=== PATIENT | male | born 1965 | race Caucasian/White ===

== ENCOUNTER 2018-10-30 09:10 | Inpatient (IN) | payer MEDICARE, MEDICAID ==
[~2018-10-30] VITALS: Ht 170.2 cm; Wt 70.5 kg
[2018-10-30] MEDS ORDERED: NS 1,000 ML IV ONE (10:45)
[2018-10-30 11:06] LABS: BASO # 0.1 10^3/uL (0.0-0.2); BASO % 0.6 % (0.0-1.0); EOS # 0.1 10^3/uL (0.0-0.50); EOS % 1.1 % (0.0-3.0); HEMATOCRIT 43.9 % (42.0-52.0); HEMOGLOBIN 14.1 g/dl (13.5-17.5); LYMPH # 1.3 10^3/uL (1.5-4.5); LYMPH % 12.7 % (24.0-44.0); MEAN CORPUSCULAR HEMOGLOBIN 27.1 pg (27.0-33.0); MEAN CORPUSCULAR HGB CONC 32.1 g/dl (32.0-36.5); MEAN CORPUSCULAR VOLUME 84.3 fl (80.0-96.0); MONO # 1.1 10^3/uL (0.0-0.8); MONO % 10.4 % (0.0-5.0); NEUTROPHILS # 7.8 10^3/uL (1.8-7.7); NEUTROPHILS % 74.2 % (36.0-66.0); PLATELET COUNT, AUTOMATED 374 10^3/uL (150-450); RED BLOOD COUNT 5.21 10^6/uL (4.30-6.10); WHITE BLOOD COUNT 10.5 10^3/uL (4.0-10.0)
[2018-10-30] MEDS ORDERED: VANCOMYCIN HCL 1,000 MG, VIAL MATE ADAPTER 1 EACH in D5W 250 ML IV ONE (11:15)
[2018-10-30] MEDS ORDERED: KCL 10MEQ/100ML SWI (KRUN) 10 MEQ in APPROPRIATE DILUENT 1 EA IV ONE (11:15)
[2018-10-30] MEDS ORDERED: KCL 40MEQ in NS 1000ML 1,000 ML IV SCH (11:15)
[2018-10-30 11:49] LABS: ALBUMIN 3.1 GM/DL (3.2-5.2); BILIRUBIN,DIRECT 0.2 MG/DL (0.0-0.2); BILIRUBIN,TOTAL 0.5 MG/DL (0.2-1.0); C REACTIVE PROTEIN QUANTITATIV 4.38 MG/DL (0.00-0.30); TOTAL PROTEIN 7.4 GM/DL (6.4-8.2)
[2018-10-30 11:52] LABS: ERYTHROCYTE SEDIMENTATION RATE 54 mm/hr (0-20)
--- NOTE | 2018-10-30 12:03 | REP ---
HISTORY: Pain. COMPARISON: None. The bones are markedly demineralized. Degenerative changes seen throughout the foot. There is a lytic lesion seen involving the proximal phalanx of the fifth digit. There is diffuse soft tissue swelling about the foot. IMPRESSION: Soft tissue swelling and lytic lesion as described above suspicious for osteomyelitis. There are other findings and chronic changes as described above. Electronically Signed by Remington Sanders DO 10/30/2018 12:35 P
--- NOTE | 2018-10-30 12:25 | REP ---
HISTORY: Pain and swelling. TECHNIQUE: Multiple ultrasonographic images of the deep venous structures of the right thigh were obtained from the common femoral vein to the popliteal vein along with Doppler interrogation and color flow Doppler images. FINDINGS: There is no abnormal echogenic material seen within any of the visualized deep venous structures that would suggest acute thrombosis. Coaptation is unremarkable throughout. Doppler interrogation shows an expected response to respiratory variability and augmentation. The color flow images show what appears to be a normal vascular pattern throughout. IMPRESSION: There is no ultrasonographic evidence of deep venous thrombosis involving any of the visualized deep venous structures of the right thigh, as described above. There is severe leg edema. Electronically Signed by Remington Sanders DO 10/30/2018 12:35 P
[2018-10-30] MEDS ORDERED: PIPERACILLIN/TAZOBACTAM SOD 3.375 GM in D5W MINI-BAG PLUS 50 ML IV ONE (14:00)
[2018-10-30 14:18] LABS: CHOLESTEROL RISK RATIO 2.911 (<5); HEMOGLOBIN A1c 6.1 %
[2018-10-30] MEDS ORDERED: NS 1,000 ML IV SCH (14:30)
--- NOTE | 2018-10-30 14:39 | HPEPDOC ---
General Date of Admission Oct 30, 2018 at 12:18 Date of Service: Oct 30, 2018 Chief Complaint The patient is a 53-year-old male admitted with a reason for visit of Osteomyelitis Of 5TH Toe Of Right Foot. History of Present Illness 53-year-old male with past medical history of cerebral palsy who is wheelchair bound presented to the ER with a chief complaint of right lower extremity pain. Of note, the patient states that he has not followed with a physician for over 5 years, and does not take any medications regularly. He states that his symptoms began a few months ago when he noticed a wound on the bottom of his right foot. He stated that he started to have some discharge from the foot and put a sock over it about 8 weeks ago. He has not removed the sock since then. He notes that the pain in his right lower extremity had worsened, and he started to notice discharge from the sock. He denies any other acute complaints of fevers, chills, chest pain, palpitations, abdominal pain, or any nausea/vomiting/diarrhea. In the ER, according to the ER provider the patient's sock had to be cut off of his right lower extremity as it was stuck to his skin tissue. His skin was noted to be macerated from below the knee all the way down to the foot where he had several areas of drainage. An XR of the Foot revealed soft tissue swelling and lytic lesion involving the proximal phalanx of the fifth digit suspicious for osteomyelitis. The patient will be admitted to the hospitalist and a consult has been placed to vascular surgery for further evaluation and management. Home Medications No Active Prescriptions or Reported Meds Allergies Coded Allergies: naproxen (Verified Allergy, Unknown, SOB, 10/30/18) Past Medical History Medical History As noted in HPI. Surgical History Hernia repair, Multiple leg surgeries, Eye surgery Social History * Smoker: Denies Alcohol: Denies Drugs: denies Review of Systems Other systems 10 point review of systems negative unless otherwise specified in HPI. Physical Examination General Exam: Positive: Alert, Cooperative, No Acute Distress, Other (patient disheveled appearing with poor hygiene) ENT Exam: Positive: Atraumatic, Mucous membr. moist/pink Neck Exam: Negative: JVD Chest Exam: Positive: Clear to auscultation, Normal air movement Heart Exam: Positive: Rate Normal, Normal S1, Normal S2 Abdomen Exam: Positive: Soft; Negative: Tenderness Extremity Exam: Positive: Other (RLE with severe maceration of skin on the plantar and dorsal aspect of the foot up to the ankle. Weeping with some purulant drainage noted. Streaking and changes consistent cellulitis noted spreading proximal towards the knee (ending 2 inches below)) Psych Exam: Positive: Oriented x 3 Vital Signs Vital Signs Date Time Temp Pulse Resp B/P (MAP) Pulse Ox O2 Delivery O2 Flow Rate FiO2 10/30/18 10:17 10/30/18 09:10 98.8 121 19 98 Room Air Laboratory Data Labs 24H Laboratory Tests 2 10/30/18 09:32: Immature Granulocyte % (Auto) 1.0, White Blood Count 10.5H, Red Blood Count 5.21, Hemoglobin 14.1, Hematocrit 43.9, Mean Corpuscular Volume 84.3, Mean Corpuscular Hemoglobin 27.1, Mean Corpuscular Hemoglobin Concent 32.1, Red Cell Distribution Width 13.6, Platelet Count 374, Neutrophils (%) (Auto) 74.2H, Lymphocytes (%) (Auto) 12.7L, Monocytes (%) (Auto) 10.4H, Eosinophils (%) (Auto) 1.1, Basophils (%) (Auto) 0.6, Neutrophils # (Auto) 7.8H, Lymphocytes # (Auto) 1.3L, Monocytes # (Auto) 1.1H, Eosinophils # (Auto) 0.1, Basophils # (Auto) 0.1, Nucleated Red Blood Cells % (auto) 0.0, Erythrocyte Sedimentation Rate 54H, Estimated Mean Plasma Glucose 128H, Hemoglobin A1c 6.1, Lactic Acid Level 1.6, Aspartate Amino Transf (AST/SGOT) 16, Alanine Aminotransferase (ALT/SGPT) 17, Alkaline Phosphatase 103, Total Bilirubin 0.5, Direct Bilirubin 0.2, C-Reactive Protein, Quantitative 4.38H, Total Protein 7.4, Albumin 3.1L, Albumin/Globulin Ratio 0.72L, Triglycerides Level 60, Total Cholesterol 131, LDL Cholesterol 74, Non-HDL Cholesterol (LDL + VLDL) 86, Total HDL Cholesterol 45, Cholesterol/HDL Ratio 2.911 10/30/18 11:02: POC Glucose (Misc Panel) 109H, POC Sodium (Misc Panel) 138, POC Potassium (Misc Panel) 2.4*L, POC Chloride (Misc Panel) 98, POC Total CO2 (Misc Panel) 26.0, POC Blood Urea Nitrogen (Misc Panel 9, POC Ionized Calcium (Misc Panel) 4.5, POC Creatinine (Misc Panel) 0.8, POC Hematocrit (Misc Panel) 45.0 CBC/BMP Laboratory Tests 10/30/18 09:32 Red Blood Count 5.21, Mean Corpuscular Volume 84.3, Mean Corpuscular Hemoglobin 27.1, Mean Corpuscular Hemoglobin Concent 32.1, Red Cell Distribution Width 13.6, Neutrophils (%) (Auto) 74.2 H, Lymphocytes (%) (Auto) 12.7 L, Monocytes (%) (Auto) 10.4 H, Eosinophils (%) (Auto) 1.1, Basophils (%) (Auto) 0.6, Neutrophils # (Auto) 7.8 H, Lymphocytes # (Auto) 1.3 L, Monocytes # (Auto) 1.1 H, Eosinophils # (Auto) 0.1, Basophils # (Auto) 0.1 Microbiology Microbiology 10/30/18 Blood Culture, Received Pending 10/30/18 Blood Culture, Received Pending 10/30/18 Gram Stain - Final, Resulted 10/30/18 Wound Culture, Resulted Pending Plan / VTE VTE Prophylaxis Ordered?: Yes Plan Plan Severe RLE Cellulitis, Right Foot Proximal Phalanx of the 5th Digit concerning for Osteomyelitis Patient noted to have severe maceration of the RLE from the ankle joint down, with drainage noted from the plantar surface of the foot and around the toes. XR of the Right Foot noted Cultures sent from the ER Patient otherwise afebrile, hemodynamically stable, with a normal lactic acid level Empirically cover with Vanco/Zosyn We will check the patient's HgbA1c, Lipid Panel Vascular surgery consulted for further evaluation Hx of Cerebral Palsy, Wheelchair Bound Status We will eventually have the patient work with physical therapy once he is more clinically stable, and evaluated by vascular surgery Non-adherence to medical therapy Complicating care DVT prophylaxis Lovenox subcutaneous THUAN STORY MD Oct 30, 2018 14:39
[2018-10-30 17:50] VITALS: BP 113/61
[2018-10-30] MEDS: VANCOMYCIN HCL 1,000 MG, VIAL MATE ADAPTER 1 EACH in D5W 250 ML IV SCH (18:43)
[2018-10-30] MEDS: PIPERACILLIN/TAZOBACTAM SOD 3.375 GM in D5W MINI-BAG PLUS 50 ML IV SCH (20:57)
[2018-10-30 22:00] VITALS: BP 117/78
[2018-10-31] MEDS: VANCOMYCIN HCL 1,000 MG, VIAL MATE ADAPTER 1 EACH in D5W 250 ML IV SCH ×3 (00:50→15:32)
[2018-10-31] MEDS: PIPERACILLIN/TAZOBACTAM SOD 3.375 GM in D5W MINI-BAG PLUS 50 ML IV SCH ×4 (02:01→20:01)
[2018-10-31 06:00] VITALS: BP 116/74
[2018-10-31 06:38] LABS: HEMATOCRIT 39.6 % (42.0-52.0); HEMOGLOBIN 12.7 g/dl (13.5-17.5); MEAN CORPUSCULAR HEMOGLOBIN 27.5 pg (27.0-33.0); MEAN CORPUSCULAR HGB CONC 32.1 g/dl (32.0-36.5); MEAN CORPUSCULAR VOLUME 85.9 fl (80.0-96.0); PLATELET COUNT, AUTOMATED 309 10^3/uL (150-450); RED BLOOD COUNT 4.61 10^6/uL (4.30-6.10); WHITE BLOOD COUNT 8.6 10^3/uL (4.0-10.0)
[2018-10-31 07:12] LABS: ALBUMIN 2.4 GM/DL (3.2-5.2); ALT/SGPT 13 U/L (12-78); BILIRUBIN,TOTAL 0.4 MG/DL (0.2-1.0); BLOOD UREA NITROGEN 8 MG/DL (7-18); C REACTIVE PROTEIN QUANTITATIV 4.62 MG/DL (0.00-0.30); CALCIUM LEVEL 8.5 MG/DL (8.5-10.1); CARBON DIOXIDE LEVEL 28 MEQ/L (21-32); CHLORIDE LEVEL 109 MEQ/L (98-107); CREATININE FOR GFR 0.93 MG/DL (0.70-1.30); GLOMERULAR FILTRATION RATE > 60.0 (>56); GLUCOSE, FASTING 89 MG/DL (70-100); POTASSIUM SERUM 3.1 MEQ/L (3.5-5.1); SODIUM LEVEL 142 MEQ/L (136-145); TOTAL PROTEIN 6.6 GM/DL (6.4-8.2)
[2018-10-31] MEDS ORDERED: POTASSIUM CHLORIDE 10 MEQ SR TABLET PO ONE ×2 (07:30→14:00)
[2018-10-31] MEDS: ENOXAPARIN 40 MG/0.4 ML SYRINGE (J1650) SC SCH (09:04)
--- NOTE | 2018-10-31 11:30 | IPNPDOC ---
Subjective Date Seen The patient was seen on 10/31/18. Subjective Chief Complaint/HPI Patient seen and examined at the bedside. No acute overnight events noted. The patient is being evaluated by vascular surgery with further imaging. Objective Physical Examination General Exam: Positive: Alert, Cooperative, No Acute Distress, Other (patient disheveled appearing with poor hygiene) ENT Exam: Positive: Atraumatic, Mucous membr. moist/pink Neck Exam: Negative: JVD Chest Exam: Positive: Clear to auscultation, Normal air movement Heart Exam: Positive: Rate Normal, Normal S1, Normal S2 Abdomen Exam: Positive: Soft; Negative: Tenderness Extremity Exam: Positive: Other (surgical dressing noted on the right lower extremity.) Psych Exam: Positive: Oriented x 3 Assessment /Plan Plan/VTE VTE Prophylaxis Ordered?: Yes Plan Severe RLE Cellulitis, Right Foot Proximal Phalanx of the 5th Digit concerning for Osteomyelitis Patient noted to have severe maceration of the RLE from the ankle joint down, with drainage noted from the plantar surface of the foot and around the toes. XR of the Right Foot noted Cultures sent from the ER Patient otherwise afebrile, hemodynamically stable, with a normal lactic acid level Empirically cover with Vanco/Zosyn We will check the patient's HgbA1c, Lipid Panel Vascular surgery consulted for further evaluation Hx of Cerebral Palsy, Wheelchair Bound Status We will eventually have the patient work with physical therapy once he is more clinically stable, and evaluated by vascular surgery Non-adherence to medical therapy Complicating care DVT prophylaxis Lovenox subcutaneous VS, I&O, 24H, Fishbone Vital Signs/I&O Vital Signs Date Time Temp Pulse Resp B/P (MAP) Pulse Ox O2 Delivery O2 Flow Rate FiO2 10/31/18 06:00 96.0 81 18 116/74 (88) 96 10/30/18 16:58 Room Air I&O- Last 24 Hours up to 6 AM 10/31/18 06:00 Intake Total 3540 ml Output Total 1450 ml Balance 2090 ml Laboratory Data 24H LABS Laboratory Tests 2 10/31/18 05:54: Nucleated Red Blood Cells % (auto) 0.0, Anion Gap 5L, Glomerular Filtration Rate > 60.0, Blood Urea Nitrogen 8, Creatinine 0.93, Sodium Level 142, Potassium Level 3.1L, Chloride Level 109H, Carbon Dioxide Level 28, Calcium Level 8.5, Aspartate Amino Transf (AST/SGOT) 16, Alanine Aminotransferase (ALT/SGPT) 13, Alkaline Phosphatase 75, Total Bilirubin 0.4, Total Protein 6.6, Albumin 2.4#L, Magnesium Level 2.0, C-Reactive Protein, Quantitative 4.62H, Albumin/Globulin Ratio 0.57L CBC/BMP Laboratory Tests 10/30/18 20:17 10/31/18 05:54 Red Blood Count 4.61, Mean Corpuscular Volume 85.9, Mean Corpuscular Hemoglobin 27.5, Mean Corpuscular Hemoglobin Concent 32.1, Red Cell Distribution Width 13.9, Calcium Level 8.5, Aspartate Amino Transf (AST/SGOT) 16, Alanine Aminotransferase (ALT/SGPT) 13, Alkaline Phosphatase 75, Total Bilirubin 0.4, Total Protein 6.6, Albumin 2.4 #L Microbiology Microbiology 10/30/18 Blood Culture - Preliminary, Resulted No growth after 24 hours . All specim... 10/30/18 Blood Culture - Preliminary, Resulted No growth after 24 hours . All specim... 10/30/18 Gram Stain - Final, Resulted 10/30/18 Wound Culture, Resulted Pending THUAN STORY MD Oct 31, 2018 11:30
--- NOTE | 2018-10-31 13:22 | CR.PDOC ---
General Date of Consultation: Oct 31, [address] Massey HPI: 53-year-old male who presented to the ER with a chief complaint of right lower extremity pain. He states that his symptoms began a few months ago when he noticed a wound on the bottom of his right foot. He stated that he started to have some discharge from the foot and put a sock over it about 8 weeks ago. He did not removed the sock since then. He notes that the pain in his right lower extremity had worsened, and he started to notice discharge from the sock. According to records, the patient's sock had to be cut off of his right lower extremity as it was stuck to his skin tissue. His skin has been noted to be macerated from below the knee all to the foot where he had several areas of drainage. An XR of the Foot revealed soft tissue swelling and lytic lesion involving the proximal phalanx of the fifth digit suspicious for osteomyelitis. The patient was admitted to the hospitalist, vascular surgery is consulted re foot wound. Denies any fevers, chills, weakness, fatigue, Headache, Chest Pain, Shortness of breath, cough, palpitations, abdominal pain, N/V/D or changes in bowel or bladder habits. PMHx: Cerebral palsy. Wheelchair bound. PSHX: Hernia repair, Multiple leg surgeries, Eye surgery SOCHX: Tobacco use: denies ETOH: denies ROS: As noted in HPI, otherwise 11pt ROS of systems reviewed and unremarkable. The patient reports that he has not followed with a physician in several years, and does not take any medications regularly. PE: GEN: 53yoM, appears stated age. No acute distress. HEENT: Normocephalic, atraumatic. Moist mucous membranes. CHEST: Regular rate and rhythm, +S1, +S2 LUNGS: Clear to auscultation bilaterally. ABD: Round, soft, non-tender, non-distended. EXT: Bandage is removed from Rt foot. yellow brown drainage noted with foul odor, tissues of the rt foot diffusely macerated on the dorsal and plantar surfaces extending to the ankle and weeping. The RLE is diffusely edematous with erythematous rash extending proximally to just below the knee area. Warm to touch. NEURO: Alert and oriented x 3. No focal deficits appreciated. RLE There is no ultrasonographic evidence of deep venous thrombosis involving any of the visualized deep venous structures of the right thigh, as described above. There is severe leg edema. Electronically Signed by Remington Sanders, 10/30/2018 12:35 P XR foot Soft tissue swelling and lytic lesion as described above suspicious for osteomyelitis. There are other findings and chronic changes as described above. Electronically Signed by Remington Sanders DO 10/30/2018 12:35 P A&P: 1. RLE wound/cellulitis/possible OM. afebrile. WBC 8.6. US neg for DVT. XR foot possible OM. BC x 2 neg. WC pending. IV Vanco/Zosyn as per Medicine Svc. The pt is reviewed with Dr Massey. Plan to obtain LE arterial US, CT RLE. Further recommendations pending these results. 2. DVT prophylaxis. Lovenox. Vital Signs/I&O Vital Signs Date Time Temp Pulse Resp B/P (MAP) Pulse Ox O2 Delivery O2 Flow Rate FiO2 10/31/18 06:00 96.0 81 18 116/74 (88) 96 10/30/18 16:58 Room Air I&O- Last 24 Hours up to 6 AM 10/31/18 06:00 Intake Total 3540 ml Output Total 1450 ml Balance 2090 ml Laboratory Data Labs 24H Laboratory Tests 2 10/31/18 05:54: Nucleated Red Blood Cells % (auto) 0.0, Anion Gap 5L, Glomerular Filtration Rate > 60.0, Blood Urea Nitrogen 8, Creatinine 0.93, Sodium Level 142, Potassium Level 3.1L, Chloride Level 109H, Carbon Dioxide Level 28, Calcium Level 8.5, Aspartate Amino Transf (AST/SGOT) 16, Alanine Aminotransferase (ALT/SGPT) 13, Alkaline Phosphatase 75, Total Bilirubin 0.4, Total Protein 6.6, Albumin 2.4#L, Magnesium Level 2.0, C-Reactive Protein, Quantitative 4.62H, Albumin/Globulin Ratio 0.57L CBC/BMP Laboratory Tests 10/30/18 20:17 10/31/18 05:54 Red Blood Count 4.61, Mean Corpuscular Volume 85.9, Mean Corpuscular Hemoglobin 27.5, Mean Corpuscular Hemoglobin Concent 32.1, Red Cell Distribution Width 13.9, Calcium Level 8.5, Aspartate Amino Transf (AST/SGOT) 16, Alanine Aminotransferase (ALT/SGPT) 13, Alkaline Phosphatase 75, Total Bilirubin 0.4, Total Protein 6.6, Albumin 2.4 #L Microbiology Microbiology 10/30/18 Blood Culture - Preliminary, Resulted No growth after 24 hours . All specim... 10/30/18 Blood Culture - Preliminary, Resulted No growth after 24 hours . All specim... 10/30/18 Gram Stain - Final, Resulted 10/30/18 Wound Culture, Resulted Pending Allergies Coded Allergies: naproxen (Verified Allergy, Unknown, SOB, 10/30/18) Home Medications No Active Prescriptions or Reported Meds Nidia Lee Oct 31, 2018 13:22
[2018-10-31 14:44] VITALS: BP 122/79
--- NOTE | 2018-10-31 15:50 | REP ---
CT study of the right calf without contrast: History: Gangrene of the right foot. Comparison radiographs of the right foot. CT findings: There is diffuse dermal thickening and diffuse subcutaneous edema throughout the right calf. There is no soft tissue gas. There are some dystrophic soft-tissue calcifications in the subcutaneous layer anteromedially. There is diffuse moderate fatty involution of the calf musculature suggesting denervation myopathy. There is a metallic screw in the proximal tibia. There is no bony destructive lesion. Impression: No acute bony destructive lesion. No soft tissue gas seen. Diffuse subcutaneous fat layer edema and dermal thickening. 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 Electronically Signed by Lucas Clarke MD 10/31/2018 03:41 P
--- NOTE | 2018-10-31 16:04 | PHACANCOPD ---
PHARMACY VANCOMYCIN DOSING Pt Demographics Demographics Patient Age:53 , Weight:79.550 , Gender: male Adjusted Body Weight Date: 10/31/18, Adjusted Body Weight: Kg Events Past 24 Hours Events Past 24 Hours: NO: Dialysis, Diuretic Therapy, Change in CrCl, Fever, Elevation in WBC, Pending Diagnostics, Pending Procedures, Other Vancomycin Vancomycin Target Ranges: 15-20 mcg/ml Vancomycin Load Y/N: Yes Load Dose Date Time Vancomycin Load Dose: 2 Date: 10/30/18 Time: 1600 Vancomycin Dose Date: 10/31/18. Current Vancomycin Dose: Intermittent Dosing?: No Labs Labs Vital Signs Label Value Date Time Patient Temperature 96.0 degrees F 10/31/18 0600 Temperature Source Oral 10/31/18 0600 Patient Temperature 98.3 degrees F 10/30/18 2200 Temperature Source Oral 10/30/18 2200 Patient Temperature 97.3 degrees F 10/30/18 1658 Temperature Source Oral 10/30/18 1658 Item Value Date Time White Blood Count 8.6 10^3/uL 10/31/18 0554 White Blood Count 10.5 10^3/uL H 10/30/18 0932 Creatinine 0.93 MG/DL 10/31/18 0554 Micro Microbiology 10/30/18 Blood Culture - Preliminary, Resulted No growth after 24 hours . All specim... 10/30/18 Blood Culture - Preliminary, Resulted No growth after 24 hours . All specim... 10/30/18 Gram Stain - Final, Resulted 10/30/18 Wound Culture, Resulted Pending Creatinine Clearance Date:10/31/18. Creatinine Clearance: . Assessment and Plan Maintaining Current Dose?: No Reason for dose change: Trough too high Pharmacist Note Pharmacist Note Date: 10/31/18. Pharmacist note: Trough drawn@1449 before 1600 dose resulted at 22.7mcg/ml. Last dose was administered late and trough was drawn early. Adjusted trough is likely somewhere around 19.5mcg/ml, however because the patient is wheelchair bound with cerebral palsy I feel his renal function is going to be lower than what his Scr predicts. I don't believe he has reached steady state and will likely continue to accumulate at this dose which would result in supratherapeutic levels. The next dose was administered before nursing could be reached about adjusting the dose. I am going to change this dose to Vanco 750mg IV Q8H@0000 and have rescheduled a trough for tomorrow. We will continue to monitor and adjust dose as needed. GIOVANA MAY PHARMACY Oct 31, 2018 16:04
[2018-10-31 22:00] VITALS: BP 107/66
[2018-10-31] MEDS: VANCOMYCIN HCL 750 MG, VIAL MATE ADAPTER 1 EACH in D5W 250 ML IV SCH (23:07)
[2018-11-01] MEDS: PIPERACILLIN/TAZOBACTAM SOD 3.375 GM in D5W MINI-BAG PLUS 50 ML IV SCH ×4 (01:36→20:11)
[2018-11-01 06:00] VITALS: BP 123/76
[2018-11-01 06:41] LABS: HEMATOCRIT 41.5 % (42.0-52.0); HEMOGLOBIN 13.2 g/dl (13.5-17.5); MEAN CORPUSCULAR HEMOGLOBIN 27.3 pg (27.0-33.0); MEAN CORPUSCULAR HGB CONC 31.8 g/dl (32.0-36.5); MEAN CORPUSCULAR VOLUME 85.9 fl (80.0-96.0); PLATELET COUNT, AUTOMATED 338 10^3/uL (150-450); RED BLOOD COUNT 4.83 10^6/uL (4.30-6.10); WHITE BLOOD COUNT 10.6 10^3/uL (4.0-10.0)
[2018-11-01 07:05] LABS: ALBUMIN 2.6 GM/DL (3.2-5.2); ALT/SGPT 13 U/L (12-78); BILIRUBIN,TOTAL 0.6 MG/DL (0.2-1.0); BLOOD UREA NITROGEN 6 MG/DL (7-18); C REACTIVE PROTEIN QUANTITATIV 2.93 MG/DL (0.00-0.30); CALCIUM LEVEL 8.3 MG/DL (8.5-10.1); CARBON DIOXIDE LEVEL 26 MEQ/L (21-32); CHLORIDE LEVEL 110 MEQ/L (98-107); CREATININE FOR GFR 0.99 MG/DL (0.70-1.30); GLOMERULAR FILTRATION RATE > 60.0 (>56); GLUCOSE, FASTING 87 MG/DL (70-100); MAGNESIUM LEVEL 2.1 MG/DL (1.8-2.4); POTASSIUM SERUM 3.5 MEQ/L (3.5-5.1); SODIUM LEVEL 142 MEQ/L (136-145); TOTAL PROTEIN 6.9 GM/DL (6.4-8.2)
[2018-11-01] MEDS: VANCOMYCIN HCL 750 MG, VIAL MATE ADAPTER 1 EACH in D5W 250 ML IV SCH ×2 (08:31→16:21)
[2018-11-01] MEDS: ENOXAPARIN 40 MG/0.4 ML SYRINGE (J1650) SC SCH (08:31)
--- NOTE | 2018-11-01 09:32 | IPNPDOC ---
Date Seen The patient was seen on 11/01/18. Progress Note Vascular Surgery Dr Massey HPI: 53-year-old male who presented to the ER with a chief complaint of right lower extremity pain. He states that his symptoms began a few months ago when he noticed a wound on the bottom of his right foot. He stated that he started to have some discharge from the foot and put a sock over it about 8 weeks ago. He did not removed the sock since then. He notes that the pain in his right lower extremity had worsened, and he started to notice discharge from the sock. According to records, the patient's sock had to be cut off of his right lower extremity as it was stuck to his skin tissue. His skin has been noted to be macerated from below the knee to the foot where he had several areas of drainage. An XR of the Foot revealed soft tissue swelling and lytic lesion involving the proximal phalanx of the fifth digit suspicious for osteomyelitis. The patient was admitted to the hospitalist, vascular surgery is consulted re foot wound. Denies any fevers, chills, weakness, fatigue, Headache, Chest Pain, Shortness of breath, cough, palpitations, abdominal pain, N/V/D or changes in bowel or bladder habits. PMHx: Cerebral palsy. Wheelchair bound. PSHX: Hernia repair, Multiple leg surgeries, Eye surgery SOCHX: Tobacco use: denies ETOH: denies ROS: As noted in HPI, otherwise 11pt ROS of systems reviewed and unremarkable. The patient reports that he has not followed with a physician in several years, and does not take any medications regularly. PE: GEN: 53yoM, appears stated age. No acute distress. HEENT: Normocephalic, atraumatic. Moist mucous membranes. CHEST: Regular rate and rhythm, +S1, +S2 LUNGS: Clear to auscultation bilaterally. ABD: Round, soft, non-tender, non-distended. EXT: Bandage intact Rt foot. The RLE remains diffusely edematous but is decreased today, also decreased erythema and rash which extends proximally to just below the knee area. NEURO: Alert and oriented x 3. No focal deficits appreciated. RLE There is no ultrasonographic evidence of deep venous thrombosis involving any of the visualized deep venous structures of the right thigh, as described above. There is severe leg edema. Electronically Signed by Remington Sanders DO 10/30/2018 12:35 P XR foot Soft tissue swelling and lytic lesion as described above suspicious for osteomyelitis. There are other findings and chronic changes as described above. Electronically Signed by Remington Sanders DO 10/30/2018 12:[address] No acute bony destructive lesion. No soft tissue gas seen. Diffuse subcutaneous fat layer edema and dermal thickening. 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 Electronically Signed by Lucas Clarke MD 10/31/2018 03:41 P A&P: 1. RLE wound/cellulitis/possible OM. afebrile. WBC 10.6. CRP 2.93, trend downward. US neg for DVT. XR foot possible OM. BC x 2 neg. WC Organism 1 PROTEUS MIRABILIS QUANTITY OF GROWTH MODERATE Organism 2 CORYNEBACTERIUM SPECIES QUANTITY OF GROWTH MODERATE IV Vanco/Zosyn as per Medicine Svc. LE arterial US pending The pt is reviewed and examined by Dr Massey. Would recommend continue with IV antibiotics, continue conservative mgmt for now. Continue to monitor progress. Further recommendations after review of LE arterial US results. 2. DVT prophylaxis. Lovenox. VS, I&O, 24H, Fishbone Vital Signs/I&O Vital Signs Date Time Temp Pulse Resp B/P (MAP) Pulse Ox O2 Delivery O2 Flow Rate FiO2 11/01/18 06:00 97.3 76 22 123/76 (92) 95 10/30/18 16:58 Room Air I&O- Last 24 Hours up to 6 AM 11/01/18 05:59 Intake Total 675 ml Output Total 1325 ml Balance -650 ml Laboratory Data 24H LABS Laboratory Tests 2 10/31/18 14:49: Vancomycin Level Trough 22.7H 11/01/18 06:19: Nucleated Red Blood Cells % (auto) 0.0, Anion Gap 6L, Glomerular Filtration Rate > 60.0, Blood Urea Nitrogen 6L, Creatinine 0.99, Sodium Level 142, Potassium Level 3.5, Chloride Level 110H, Carbon Dioxide Level 26, Calcium Level 8.3L, Aspartate Amino Transf (AST/SGOT) 16, Alanine Aminotransferase (ALT/SGPT) 13, Alkaline Phosphatase 79, Total Bilirubin 0.6, Total Protein 6.9, Albumin 2.6L, Magnesium Level 2.1, C-Reactive Protein, Quantitative 2.93H, Albumin/Globulin Ratio 0.60L CBC/BMP Laboratory Tests 11/01/18 06:19 Red Blood Count 4.83, Mean Corpuscular Volume 85.9, Mean Corpuscular Hemoglobin 27.3, Mean Corpuscular Hemoglobin Concent 31.8 L, Red Cell Distribution Width 13.8, Calcium Level 8.3 L, Aspartate Amino Transf (AST/SGOT) 16, Alanine Aminotransferase (ALT/SGPT) 13, Alkaline Phosphatase 79, Total Bilirubin 0.6, Total Protein 6.9, Albumin 2.6 L Microbiology Microbiology 10/30/18 Blood Culture - Preliminary, Resulted No growth after 24 hours . All specim... 10/30/18 Blood Culture - Preliminary, Resulted No growth after 24 hours . All specim... 10/30/18 Gram Stain - Final, Resulted 10/30/18 Wound Culture - Preliminary, Resulted Proteus Mirabilis Corynebacterium Species Nidia Lee Nov 01, 2018 09:32
--- NOTE | 2018-11-01 12:31 | REP ---
Bilateral lower extremity arterial Doppler ultrasound: History: Right lower extremity wound. Sonographic findings: Ankle brachial index on the right could not be obtained due to the patient's wound. On the left the FREDA is normal at 0.95. Mild plaquing is seen bilaterally. No high-grade stenosis is detected. Monophasic waveforms are observed in the common femoral and profunda femoral artery on the right. Monophasic wave form is also noted in the distal posterior tibial artery on the right. Wave forms are otherwise normal. Arterial Doppler velocity chart right lower extremity: CF A 130 cm/S Profunda 80 Proximal SFA 136 Mid SFA 136 Distal SFA 107 Popliteal 120 Optimal AT A 30 Tibioperoneal trunk 116 Proximal THERMIT WELDING MACHINE OPERATOR 106 Distal THERMIT WELDING MACHINE OPERATOR 47 Distal AT A 68 Arterial Doppler velocity chart left lower extremity: CF A 89 cm/S Profunda 70 Proximal SFA 85 Mid SFA 86 Distal SFA 98 Popliteal 103 Proximal AT A 60 Tibioperoneal trunk 73 Proximal THERMIT WELDING MACHINE OPERATOR 55 Distal THERMIT WELDING MACHINE OPERATOR 58 Distal AT A 61 Electronically Signed by Luacs Clarke MD 11/01/2018 12:22 P
--- NOTE | 2018-11-01 13:47 | PHACANCOPD ---
PHARMACY VANCOMYCIN DOSING Pt Demographics Demographics Patient Age:53 , Weight:79.550 , Gender: male Adjusted Body Weight Date: 10/31/18, Adjusted Body Weight: [71.48] Kg Events Past 24 Hours Events Past 24 Hours: NO: Dialysis, Diuretic Therapy, Change in CrCl, Fever, Elevation in WBC, Pending Diagnostics, Pending Procedures, Other Vancomycin Vancomycin indication: OSTEO Vancomycin Target Ranges: 15-20 mcg/ml Vancomycin Load Y/N: Yes Load Dose Date Time Vancomycin Load Dose: 2 Date: 10/30/18 Time: 1600 Vancomycin Dose Date: 10/31/18. Current Vancomycin Dose: [750MG IV Q8H] Intermittent Dosing?: No Labs Labs Item Value Date Time White Blood Count 10.5 10^3/uL H 10/30/18 0932 White Blood Count 8.6 10^3/uL 10/31/18 0554 White Blood Count 10.6 10^3/uL H 11/01/18 0619 C-Reactive Protein, Quantitative 4.62 MG/DL H 10/31/18 0554 C-Reactive Protein, Quantitative 2.93 MG/DL H 11/01/18 0619 Creatinine 0.93 MG/DL 10/31/18 0554 Creatinine 0.99 MG/DL 11/01/18 0619 Vancomycin Level Trough 22.7 UG/ML H 10/31/18 1449 Vancomycin Level Trough 22.5 UG/ML H 11/01/18 1122 Micro Microbiology 10/30/18 Blood Culture - Preliminary, Resulted No Growth after 48 hours. All Specime... 10/30/18 Blood Culture - Preliminary, Resulted No Growth after 48 hours. All Specime... 10/30/18 Gram Stain - Final, Resulted 10/30/18 Wound Culture - Preliminary, Resulted Proteus Mirabilis Corynebacterium Species Creatinine Clearance Date:10/31/18. Creatinine Clearance: [89ML/MIN]. Pending Labs VANCOMYCIN TROUGH 11/02/18 @15:00 Assessment and Plan Maintaining Current Dose?: Yes Reason for dose change: No Dose Change Pharmacist Note Pharmacist Note Date: 11/01/18. Pharmacist note: A vancomycin level was drawn today @11:22 at 22.5mcg/ml. The pts sam is calculated at 0.078 hr^-1. This would have resulted in the pts true trough at approximately 15.2mcg/ml. We will continue current dosing. A trough is scheduled 11/02/18 @ 1500. We will continue to monitor and adjust the dose as needed. Date: 10/31/18. Pharmacist note: Trough drawn@1449 before 1600 dose resulted at 22.7mcg/ml. Last dose was administered late and trough was drawn early. Adjusted trough is likely somewhere around 19.5mcg/ml, however because the patient is wheelchair bound with cerebral palsy I feel his renal function is going to be lower than what his Scr predicts. I don't believe he has reached steady state and will likely continue to accumulate at this dose which would result in supratherapeutic levels. The next dose was administered before nursing could be reached about adjusting the dose. I am going to change this dose to Vanco 750mg IV Q8H@0000 and have rescheduled a trough for tomorrow. We will continue to monitor and adjust dose as needed. DAMION CALDERON PHARMACY Nov 01, 2018 13:46
--- NOTE | 2018-11-01 18:03 | IPNPDOC ---
Text Note Date of Service The patient was seen on 11/01/18. NOTE S: Patient being seen for right lower extremity cellulitis. Had FREDA done today on left which is normal but could not be performed on right due to wound. Right arterial US pending. Patient states leg is improving. he is still on bed rest. He complains of shoulder pain (declines opioids and states allergy to alleve with SOB but able to use advil at home). Pain is bilateral shoulders left worse than right, he is left handed. He states pain is worse with activy,dull achy. no pain with rest. Pain is positional (worse with lifting arm over head or straight out over body. [facility] commode and that felt shoulder "pop" and since then has not been able to move it as well. O: Vitals as below General: pleasant NAD AAOx3 HRRR LCTA Musculoskeletal: right foot bandaged (dressing change due tomorrow). right leg 1+ edema with wrinkles and venous stasis changes along pretibia; Right shoulder active and passive ROM intact and normal; left shoulder active ROM decreased for abduction and elevation; passive ROM left shoulder normal with no crepitus A/P: Bilateral rotator cuff strain (left more than right) - bengay rub prn, PT/OT consult Severe RLE Cellulitis, Right Foot Proximal Phalanx of the 5th Digit concerning for Osteomyelitis Patient noted to have severe maceration of the RLE from the ankle joint down, with drainage noted from the plantar surface of the foot and around the toes. Cultures sent from the ER Empirically cover with Vanco/Zosyn - high decision making for vanc level and management. Vanc level elevated and monitor for renal toxicity. Pharmacy aware. Vascular surgery consulted for further evaluation Hx of Cerebral Palsy, Wheelchair Bound Status We will eventually have the patient work with physical therapy once he is more clinically stable, and evaluated by vascular surgery Non-adherence to medical therapy Complicating care DVT prophylaxis Lovenox subcutaneous VS,Fishbone, I+O VS, Fishbone, I+O Laboratory Tests 11/01/18 06:19 Red Blood Count 4.83, Mean Corpuscular Volume 85.9, Mean Corpuscular Hemoglobin 27.3, Mean Corpuscular Hemoglobin Concent 31.8 L, Red Cell Distribution Width 13.8, Calcium Level 8.3 L, Aspartate Amino Transf (AST/SGOT) 16, Alanine Aminotransferase (ALT/SGPT) 13, Alkaline Phosphatase 79, Total Bilirubin 0.6, Total Protein 6.9, Albumin 2.6 L Vital Signs Date Time Temp Pulse Resp B/P (MAP) Pulse Ox O2 Delivery O2 Flow Rate FiO2 11/01/18 06:00 97.3 76 22 123/76 (92) 95 10/30/18 16:58 Room Air I&O- Last 24 Hours up to 6 AM 11/01/18 05:59 Intake Total 675 ml Output Total 1325 ml Balance -650 ml PATRICIA MCDONOUGH DO Nov 01, 2018 18:03
[2018-11-01 22:00] VITALS: BP 135/85
--- NOTE | 2018-11-01 23:55 | PHACANCOPD ---
PHARMACY VANCOMYCIN DOSING Pt Demographics Demographics Patient Age:53 , Weight:79.550 , Gender: male Adjusted Body Weight Date: 10/31/18, Adjusted Body Weight: [71.48] Kg Events Past 24 Hours Events Past 24 Hours: NO: Dialysis, Diuretic Therapy, Change in CrCl, Fever, Elevation in WBC, Pending Diagnostics, Pending Procedures, Other Vancomycin Vancomycin indication: OSTEO Vancomycin Target Ranges: 15-20 mcg/ml Vancomycin Load Y/N: Yes Load Dose Date Time Vancomycin Load Dose: 2 Date: 10/30/18 Time: 1600 Vancomycin Dose Date: 11/01/18. Current Vancomycin Dose: [750MG IV Q12H] Intermittent Dosing?: No Labs Labs Item Value Date Time White Blood Count 10.6 10^3/uL H 11/01/18618 Glomerular Filtration Rate > 60.0 11/01/18618 Creatinine 0.99 MG/DL 11/01/18618 Blood Urea Nitrogen 6 MG/DL L 11/01/18618 Vancomycin Level Trough 23.0 UG/ML H 11/01/18 2308 Vital Signs Label Value Date Time Patient Temperature 97.3 degrees F 11/01/18 0600 Temperature Source Oral 11/01/18 0600 Micro Microbiology 10/30/18 Blood Culture - Preliminary, Resulted No Growth after 48 hours. All Specime... 10/30/18 Blood Culture - Preliminary, Resulted No Growth after 48 hours. All Specime... 10/30/18 Gram Stain - Final, Resulted 10/30/18 Wound Culture - Preliminary, Resulted Proteus Mirabilis Corynebacterium Species Creatinine Clearance Date:10/31/18. Creatinine Clearance: [89ML/MIN]. Pending Labs VANCOMYCIN TROUGH 11/02/18 @15:00 Assessment and Plan Maintaining Current Dose?: No Reason for dose change: Trough too high Pharmacist Note Pharmacist Note Date: 11/01/18. Pharmacist note: Trough of 23 is above target range. Dose reduced to 750mg q12h. Will continue to monitor and make adjustments as needed. NICKY CHIU PHARMACY Nov 01, 2018 23:54
[2018-11-02] MEDS: PIPERACILLIN/TAZOBACTAM SOD 3.375 GM in D5W MINI-BAG PLUS 50 ML IV SCH ×3 (02:10→14:36)
[2018-11-02] MEDS: VANCOMYCIN HCL 750 MG, VIAL MATE ADAPTER 1 EACH in D5W 250 ML IV SCH ×2 (04:37→15:57)
[2018-11-02 05:33] LABS: HEMATOCRIT 42.5 % (42.0-52.0); HEMOGLOBIN 13.6 g/dl (13.5-17.5); MEAN CORPUSCULAR HEMOGLOBIN 27.6 pg (27.0-33.0); MEAN CORPUSCULAR VOLUME 86.2 fl (80.0-96.0); PLATELET COUNT, AUTOMATED 326 10^3/uL (150-450); RED BLOOD COUNT 4.93 10^6/uL (4.30-6.10); WHITE BLOOD COUNT 9.7 10^3/uL (4.0-10.0)
[2018-11-02 05:55] LABS: ALBUMIN 2.5 GM/DL (3.2-5.2); ALT/SGPT 13 U/L (12-78); BILIRUBIN,TOTAL 0.6 MG/DL (0.2-1.0); BLOOD UREA NITROGEN 9 MG/DL (7-18); CALCIUM LEVEL 8.5 MG/DL (8.5-10.1); CARBON DIOXIDE LEVEL 27 MEQ/L (21-32); CHLORIDE LEVEL 108 MEQ/L (98-107); GLOMERULAR FILTRATION RATE > 60.0 (>56); GLUCOSE, FASTING 115 MG/DL (70-100); MAGNESIUM LEVEL 2.1 MG/DL (1.8-2.4); POTASSIUM SERUM 3.3 MEQ/L (3.5-5.1); SODIUM LEVEL 141 MEQ/L (136-145)
[2018-11-02 06:00] VITALS: BP 106/72
[2018-11-02] MEDS: ENOXAPARIN 40 MG/0.4 ML SYRINGE (J1650) SC SCH (10:00)
--- NOTE | 2018-11-02 12:27 | IPNPDOC ---
Date Seen The patient was seen on 11/02/18. Progress Note Vascular Surgery Dr Massey HPI: 53-year-old male who presented to the ER with a chief complaint of right lower extremity pain. He states that his symptoms began a few months ago when he noticed a wound on the bottom of his right foot. He stated that he started to have some discharge from the foot and put a sock over it about 8 weeks ago. He did not removed the sock since then. He notes that the pain in his right lower extremity had worsened, and he started to notice discharge from the sock. According to records, the patient's sock had to be cut off of his right lower extremity as it was stuck to his skin tissue. His skin has been noted to be macerated from below the knee to the foot where he had several areas of drainage. An XR of the Foot revealed soft tissue swelling and lytic lesion involving the proximal phalanx of the fifth digit suspicious for osteomyelitis. The patient was admitted to the hospitalist, vascular surgery is consulted re foot wound. Denies any fevers, chills, weakness, fatigue, Headache, Chest Pain, Shortness of breath, cough, palpitations, abdominal pain, N/V/D or changes in bowel or bladder habits. PMHx: Cerebral palsy. Wheelchair bound. PSHX: Hernia repair, Multiple leg surgeries, Eye surgery PE: GEN: 53yoM, appears stated age. No acute distress. HEENT: Normocephalic, atraumatic. Moist mucous membranes. CHEST: Regular rate and rhythm, +S1, +S2 LUNGS: Clear to auscultation bilaterally. ABD: Round, soft, non-tender, non-distended. EXT: Bandage intact Rt foot. The RLE remains diffusely edematous but is decreased today, also decreased erythema and rash which extends proximally to just below the knee area. NEURO: Alert and oriented x 3. No focal deficits appreciated. RLE There is no ultrasonographic evidence of deep venous thrombosis involving any of the visualized deep venous structures of the right thigh, as described above. There is severe leg edema. Electronically Signed by Remington Sanders DO 10/30/2018 12:35 P XR foot Soft tissue swelling and lytic lesion as described above suspicious for osteomyelitis. There are other findings and chronic changes as described above. Electronically Signed by Remington Sanders DO 10/30/2018 12:[address] No acute bony destructive lesion. No soft tissue gas seen. Diffuse subcutaneous fat layer edema and dermal thickening. 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 Electronically Signed by Lucas Clarke MD 10/31/2018 03:41 P BLE Art US History: Right lower extremity wound. Sonographic findings: Ankle brachial index on the right could not be obtained due to the patient's wound. On the left the FREDA is normal at 0.95. Mild plaquing is seen bilaterally. No high-grade stenosis is detected. Monophasic waveforms are observed in the common femoral and profunda femoral artery on the right. Monophasic wave form is also noted in the distal posterior tibial artery on the right. Wave forms are otherwise normal. Arterial Doppler velocity chart right lower extremity: CF A 130 cm/S Profunda 80 Proximal SFA 136 Mid SFA 136 Distal SFA 107 Popliteal 120 Optimal AT A 30 Tibioperoneal trunk 116 Proximal OPINION POLLS SURVEY WORKER 106 Distal OPINION POLLS SURVEY WORKER 47 Distal AT A 68 Arterial Doppler velocity chart left lower extremity: CF A 89 cm/S Profunda 70 Proximal SFA 85 Mid SFA 86 Distal SFA 98 Popliteal 103 Proximal AT A 60 Tibioperoneal trunk 73 Proximal OPINION POLLS SURVEY WORKER 55 Distal OPINION POLLS SURVEY WORKER 58 Distal AT A 61 Electronically Signed by Lucas Clarke MD 11/01/2018 12:22 P A&P: 1. RLE wound/cellulitis/possible OM. afebrile. WBC 9.7 CRP 2.2, trend downward. US neg for DVT. XR foot possible OM. BC x 2 neg. WC Organism 1 PROTEUS MIRABILIS QUANTITY OF GROWTH MODERATE Organism 2 CORYNEBACTERIUM SPECIES QUANTITY OF GROWTH MODERATE IV Vanco/Zosyn as per Medicine Svc. The pt is reviewed and examined by Dr Massey 11/02/18. Would recommend continue with IV antibiotics. LE arterial US results are reviewed as per Dr Massey, plan for RLE angiogram 11/03/18 to further asses. 2. DVT prophylaxis. Lovenox. VS, I&O, 24H, Fishbone Vital Signs/I&O Vital Signs Date Time Temp Pulse Resp B/P (MAP) Pulse Ox O2 Delivery O2 Flow Rate FiO2 11/02/18 06:00 97.9 74 18 106/72 (83) 97 10/30/18 16:58 Room Air I&O- Last 24 Hours up to 6 AM 11/02/18 06:00 Intake Total 0 ml Output Total 400 ml Balance -400 ml Laboratory Data 24H LABS Laboratory Tests 2 11/01/18 12:50: Bedside Glucose (Misc Panel) 117H 11/01/18 23:08: Vancomycin Level Trough 23.0H 11/02/18 05:13: Nucleated Red Blood Cells % (auto) 0.0, Anion Gap 6L, Glomerular Filtration Rate > 60.0, Blood Urea Nitrogen 9, Creatinine 1.00, Sodium Level 141, Potassium Level 3.3L, Chloride Level 108H, Carbon Dioxide Level 27, Calcium Level 8.5, Aspartate Amino Transf (AST/SGOT) 15, Alanine Aminotransferase (ALT/SGPT) 13, Al kaline Phosphatase 73, Total Bilirubin 0.6, Total Protein 7.0, Albumin 2.5L, Magnesium Level 2.1, C-Reactive Protein, Quantitative 2.20H, Albumin/Globulin Ratio 0.56L CBC/BMP Laboratory Tests 11/02/18 05:13 Red Blood Count 4.93, Mean Corpuscular Volume 86.2, Mean Corpuscular Hemoglobin 27.6, Mean Corpuscular Hemoglobin Concent 32.0, Red Cell Distribution Width 13.9, Calcium Level 8.5, Aspartate Amino Transf (AST/SGOT) 15, Alanine Aminotransferase (ALT/SGPT) 13, Alkaline Phosphatase 73, Total Bilirubin 0.6, Total Protein 7.0, Albumin 2.5 L Microbiology Microbiology 10/30/18 Blood Culture - Preliminary, Resulted No Growth after 72 hours. All specime... 10/30/18 Blood Culture - Preliminary, Resulted No Growth after 72 hours. All specime... 10/30/18 Gram Stain - Final, Resulted 10/30/18 Wound Culture - Preliminary, Resulted Proteus Mirabilis Staphylococcus Sp Coag Neg Corynebacterium Species Attending Note Attending Note VASCULAR SURGICAL ATTENDING NOTE: Dr. Alicja Massey M.D. ASSESSMENT: 53-year-old male with right foot gangrene and ulceration with arterial duplex of the right lower extremity showing femoral-popliteal arterial atherosclerotic occlusive disease. PLAN: Patient will undergo a right leg angiogram with possible angioplasty, stent and/or arthrectomy. Patient will also undergo debridement of the right foot wounds and ulcers. Marcell Garland was the attending vascular surgeon for this patient encounter. The patient was seen, examined, interviewed and evaluated independently by Dr. Mi Massey M.D. Dr. Mi Massey M.D. was fully available during the consultation evaluation. All aspects of the patient interview, examination, medical decision making process, and medical care plan development were reviewed and approved by Dr. Mi Massey M.D. Dr. Mi Massey M.D. is aware and concurs with the plan as stated in the body of this note and will attest to such by his/her cosignature. Nidia Lee Nov 02, 2018 12:27 Alejandro Massey MD Nov 03, 2018 10:15
[2018-11-02] MEDS ORDERED: POTASSIUM CHLORIDE 10 MEQ SR TABLET PO ONE (17:30)
--- NOTE | 2018-11-02 17:31 | IPNPDOC ---
Text Note Date of Service The patient was seen on 11/02/18. NOTE S: patient states no leg pain. swelling to right leg resolved. He is being seen for right leg ulcer and cellulitis. O: Vitals as below General: pleasant NAD AAOx3 HRRR LCTA Ext: right leg dressing remove and evaluated - plantar surface of right foot with dime size closed macerated soft ulcer; drainage (serosang) present on dressing/guaze. Dorsum of toes (2-5) with maceration along MTP distal skin folding and deformity. Currently on zosyn and vanc - wound cultures reviewed: WOUND CULTURE Preliminary (continued) PROTEU FAITH STAPH NEG RX M.I.C. RX M.I.C. ----- --------- ----- --------- ICR (INDUCIBLE CC RESISTANCE) + TETRACYCLINE S <=1 PENICILLIN G R 0.25 TRIMETHOPRIM/SULFAMETHOXAZOLE S <=20 S <=10 AMPICILLIN S <=2 ERYTHROMYCIN R 1 GENTAMICIN S <=1 S <=0.5 CLINDAMYCIN R <=0.12 CEFAZOLIN S <=4 OXACILLIN S <=0.25 LEVOFLOXACIN S <=0.12 TOBRAMYCIN S <=1 VANCOMYCIN S <=0.5 CEFTRIAXONE S <=1 CEFTAZIDIME S <=1 AMPICILLIN/SULBACTAM S <=2 PIPERACILLIN/TAZOBACTAM S <=4 AZTREONAM S <=1 ERTAPENEM S <=0.5 MEROPENEM S <=0.25 TIGECYCLINE R 4 LINEZOLID (ZYVOX) S 1 DAPTOMYCIN S <=0.12 * CEFEPIME S <=1 MINOCYCLINE S <=0.5 A/P: 1) Severe RLE Cellulitis, Right Foot Proximal Phalanx of the 5th Digit concerning for Osteomyelitis Vascular surgery consulted for further evaluation and case discussed with daniel morgan. continue with [employer] with dry guaze daily; Arteriogram per Dr Massey continue with vancomycin and monitor for toxicity (high decision making), change zosyn to rocephin. Continue with IV antibiotics until ready for discharge as recommended by surgery, then change to bactrim po. Will need o utpatient podiatry for continued foot care, off loading shoes given foot deformity associated with CP. 2) Bilateral rotator cuff strain (left more than right) - sanjeev hall prn, PT/OT consult 3) Hx of Cerebral Palsy, Wheelchair Bound Status - stable 4) Non-adherence to medical therapy prior to admission - Complicating care DVT prophylaxis Lovenox subcutaneous VS,Fishbone, I+O VS, Fishbone, I+O Laboratory Tests 11/02/18 05:13 Red Blood Count 4.93, Mean Corpuscular Volume 86.2, Mean Corpuscular Hemoglobin 27.6, Mean Corpuscular Hemoglobin Concent 32.0, Red Cell Distribution Width 13.9, Calcium Level 8.5, Aspartate Amino Transf (AST/SGOT) 15, Alanine Aminotransferase (ALT/SGPT) 13, Alkaline Phosphatase 73, Total Bilirubin 0.6, Total Protein 7.0, Albumin 2.5 L Vital Signs Date Time Temp Pulse Resp B/P (MAP) Pulse Ox O2 Delivery O2 Flow Rate FiO2 11/02/18 06:00 97.9 74 18 106/72 (83) 97 10/30/18 16:58 Room Air I&O- Last 24 Hours up to 6 AM 11/02/18 06:00 Intake Total 0 ml Output Total 400 ml Balance -400 ml PATRICIA MCDONOUGH DO Nov 02, 2018 11:04
[2018-11-02] MEDS: cefTRIAXone SOD 2 GM in D5W MINI-BAG PLUS 50 ML IV SCH (18:29)
[2018-11-02 20:46] VITALS: BP 126/88
[2018-11-03] MEDS: VANCOMYCIN HCL 750 MG, VIAL MATE ADAPTER 1 EACH in D5W 250 ML IV SCH ×2 (03:13→17:27)
[2018-11-03 06:30] VITALS: BP 113/68
[2018-11-03] MEDS ORDERED: fentaNYL 100 MCG/2 ML INJECTION (J3010) As Ordered ONE (07:42)
[2018-11-03] MEDS ORDERED: PROPOFOL 200 MG/20 ML VIAL As Ordered ONE ×2 (07:42→08:56)
[2018-11-03] MEDS ORDERED: MIDAZOLAM INJ 2 MG/2 ML VIAL (J2250) As Ordered ONE (07:42)
[2018-11-03] MEDS ORDERED: LIDOCAINE 2% INJ 100 MG/5 ML SDV (FOR ANES.) As Ordered ONE (07:42)
[2018-11-03] MEDS ORDERED: ONDANSETRON 4MG/2ML VIAL (J2405) As Ordered ONE (07:42)
[2018-11-03] MEDS ORDERED: ISOVUE-300 61% 50ML VIAL (Q9967) As Ordered ONE ×2 (07:57→08:19)
[2018-11-03] MEDS ORDERED: HEPARIN SOD (PORCINE) 5000 UNITS/ML VIAL As Ordered ONE (07:57)
[2018-11-03 07:58] LABS: ALBUMIN 2.5 GM/DL (3.2-5.2); ALT/SGPT 12 U/L (12-78); BILIRUBIN,TOTAL 0.3 MG/DL (0.2-1.0); BLOOD UREA NITROGEN 12 MG/DL (7-18); C REACTIVE PROTEIN QUANTITATIV 1.78 MG/DL (0.00-0.30); CALCIUM LEVEL 8.4 MG/DL (8.5-10.1); CARBON DIOXIDE LEVEL 28 MEQ/L (21-32); CHLORIDE LEVEL 107 MEQ/L (98-107); CREATININE FOR GFR 0.98 MG/DL (0.70-1.30); GLOMERULAR FILTRATION RATE > 60.0 (>56); GLUCOSE, FASTING 97 MG/DL (70-100); MAGNESIUM LEVEL 2.3 MG/DL (1.8-2.4); POTASSIUM SERUM 3.6 MEQ/L (3.5-5.1); SODIUM LEVEL 141 MEQ/L (136-145); TOTAL PROTEIN 6.9 GM/DL (6.4-8.2)
[2018-11-03] MEDS ORDERED: LIDOCAINE 2% MDV 20 ML VIAL As Ordered ONE (07:58)
[2018-11-03] MEDS ORDERED: BUPIVACAINE HCL 0.5% 30 ML VIAL As Ordered ONE (07:58)
[2018-11-03 08:16] LABS: HEMATOCRIT 42.2 % (42.0-52.0); HEMOGLOBIN 13.2 g/dl (13.5-17.5); MEAN CORPUSCULAR HEMOGLOBIN 27.4 pg (27.0-33.0); MEAN CORPUSCULAR HGB CONC 31.3 g/dl (32.0-36.5); MEAN CORPUSCULAR VOLUME 87.7 fl (80.0-96.0); PLATELET COUNT, AUTOMATED 294 10^3/uL (150-450); RED BLOOD COUNT 4.81 10^6/uL (4.30-6.10); WHITE BLOOD COUNT 8.9 10^3/uL (4.0-10.0)
[2018-11-03] MEDS ORDERED: LR 1,000 ML IV SCH (10:15)
[2018-11-03] MEDS ORDERED: fentaNYL 100 MCG/2 ML INJECTION (J3010) IV PRN (10:15)
[2018-11-03] MEDS ORDERED: PERCOCET 5MG/325MG TAB PO PRN (10:15)
[2018-11-03] MEDS ORDERED: ONDANSETRON 4MG/2ML VIAL (J2405) IV PRN (10:15)
--- NOTE | 2018-11-03 10:20 | IPNPDOC ---
Date Seen The patient was seen on 11/03/18. Progress Note Vascular Surgery Dr Massey HPI: 53-year-old male who presented to the ER with a chief complaint of right lower extremity pain. He states that his symptoms began a few months ago when he noticed a wound on the bottom of his right foot. He stated that he started to have some discharge from the foot and put a sock over it about 8 weeks ago. He did not removed the sock since then. He notes that the pain in his right lower extremity had worsened, and he started to notice discharge from the sock. According to records, the patient's sock had to be cut off of his right lower extremity as it was stuck to his skin tissue. His skin has been noted to be macerated from below the knee to the foot where he had several areas of drainage. An XR of the Foot revealed soft tissue swelling and lytic lesion involving the proximal phalanx of the fifth digit suspicious for osteomyelitis. The patient was admitted to the hospitalist, vascular surgery is consulted re foot wound. The pt is currently in PACU S/P procedure as per Dr Massey. PMHx: Cerebral palsy. Wheelchair bound. PSHX: Hernia repair, Multiple leg surgeries, Eye surgery PE: Pt is in PACU currently. GEN: 53yoM. No acute distress. HEENT: Normocephalic, atraumatic. Moist mucous membranes. CHEST: Regular rate and rhythm, +S1, +S2 EXT: Bandage intact Rt foot. RLE There is no ultrasonographic evidence of deep venous thrombosis involving any of the visualized deep venous structures of the right thigh, as described above. There is severe leg edema. Electronically Signed by Remington Sanders DO 10/30/2018 12:35 P XR foot Soft tissue swelling and lytic lesion as described above suspicious for osteomyelitis. There are other findings and chronic changes as described above. Electronically Signed by Remington Sanders DO 10/30/2018 12:[address] No acute bony destructive lesion. No soft tissue gas seen. Diffuse subcutaneous fat layer edema and dermal thickening. 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 Electronically Signed by Lucas Clarke MD 10/31/2018 03:41 P BLE Art US History: Right lower extremity wound. Sonographic findings: Ankle brachial index on the right could not be obtained due to the patient's wound. On the left the FREDA is normal at 0.95. Mild plaquing is seen bilaterally. No high-grade stenosis is detected. Monophasic waveforms are observed in the common femoral and profunda femoral artery on the right. Monophasic wave form is also noted in the distal posterior tibial artery on the right. Wave forms are otherwise normal. Arterial Doppler velocity chart right lower extremity: CF A 130 cm/S Profunda 80 Proximal SFA 136 Mid SFA 136 Distal SFA 107 Popliteal 120 Optimal AT A 30 Tibioperoneal trunk 116 Proximal FOOD PREPARATION WORKER 106 Distal FOOD PREPARATION WORKER 47 Distal AT A 68 Arterial Doppler velocity chart left lower extremity: CF A 89 cm/S Profunda 70 Proximal SFA 85 Mid SFA 86 Distal SFA 98 Popliteal 103 Proximal AT A 60 Tibioperoneal trunk 73 Proximal FOOD PREPARATION WORKER 55 Distal FOOD PREPARATION WORKER 58 Distal AT A 61 Electronically Signed by Lucas Clarke MD 11/01/2018 12:22 P A&P: 1. RLE wound/cellulitis/possible OM. afebrile. WBC 8.9 CRP 1.79, trend downward. US neg for DVT. XR foot possible OM. BC x 2 neg. WC Organism 1 PROTEUS MIRABILIS QUANTITY OF GROWTH MODERATE Organism 2 CORYNEBACTERIUM SPECIES QUANTITY OF GROWTH MODERATE IV Vanco/Rocephin as per Medicine Svc. The pt is reviewed and examined by Dr Massey 11/03/18. RLE angiogram 11/03/[address] Massey no intervention necessary. S/P Rt foot debridement as per Dr Massey 11/03/18. Will likely need Rt TMA, Dr Massey to discuss further with Pt. 2. DVT prophylaxis. Lovenox. VS, I&O, 24H, Fishbone Vital Signs/I&O Vital Signs Date Time Temp Pulse Resp B/P (MAP) Pulse Ox O2 Delivery O2 Flow Rate FiO2 11/03/18 09:40 97.1 65 18 109/53 (71) 96 11/03/18 09:13 2 10/30/18 16:58 Room Air I&O- Last 24 Hours up to 6 AM0 11/03/18 06:00 Intake Total 1295 ml Output Total 350 ml Balance 945 ml Laboratory Data 24H LABS Laboratory Tests 2 11/02/18 15:14: Vancomycin Level Trough 14.9 11/03/18 05:47: Nucleated Red Blood Cells % (auto) 0.0, Anion Gap 6L, Glomerular Filtration Rate > 60.0, Blood Urea Nitrogen 12, Creatinine 0.98, Sodium Level 141, Potassium Level 3.6, Chloride Level 107, Carbon Dioxide Level 28, Calcium Level 8.4L, Aspartate Amino Transf (AST/SGOT) 15, Alanine Aminotransferase (ALT/SGPT) 12, Alkaline Phosphatase 77, Total Bilirubin 0.3, Total Protein 6.9, Albumin 2.5L, Magnesium Level 2.3, C-Reactive Protein, Quantitative 1.78H, Albumin/Globulin Ratio 0.57L CBC/BMP Laboratory Tests 11/03/18 05:47 Red Blood Count 4.81, Mean Corpuscular Volume 87.7, Mean Corpuscular Hemoglobin 27.4, Mean Corpuscular Hemoglobin Concent 31.3 L, Red Cell Distribution Width 14.2, Calcium Level 8.4 L, Aspartate Amino Transf (AST/SGOT) 15, Alanine Aminotransferase (ALT/SGPT) 12, Alkaline Phosphatase 77, Total Bilirubin 0.3, Total Protein 6.9, Albumin 2.5 L Microbiology Microbiology 10/30/18 Blood Culture - Preliminary, Resulted No Growth after 72 hours. All specime... 10/30/18 Blood Culture - Preliminary, Resulted No Growth after 72 hours. All specime... 10/30/18 Gram Stain - Final, Complete 10/30/18 Wound Culture - Final, Complete Proteus Mirabilis Staphylococcus Sp Coag Neg Globicatella Sanguinis Corynebacterium Species Attending Note Attending Note VASCULAR SURGICAL ATTENDING NOTE: Dr. Alicja Massey M.D. ASSESSMENT: 53-year-old male with right lower extremity cellulitis which is resolving on antibiotics and right foot ulceration and gangrene. Patient underwent an angiogram and debridement of the right foot wounds. Right lower extremity angiogram shows no significant vascular disease requiring intervention. Debridement of the wound shows extensive ulceration at the base and between the second and third toes as well as at the base and between the fourth and fifth toes. Patient also has an x-ray showing possible right proximal phalangeal osteomyelitis in the right fifth toe. After evaluating the wounds and performing the angiogram I discussed with the patient the likelihood that the wounds would not heal due to the extensive gangrene and that he would require a transmetatarsal amputation. PLAN: Patient agrees to proceed with a right transmetatarsal amputation which will be scheduled for 11/04/2018. Marcell Garland was the attending vascular surgeon for this patient encounter. The patient was seen, examined, interviewed and evaluated independently by Dr. Mi Massey M.D. Dr. Mi Massey M.D. was fully available during the consultation evaluation. All aspects of the patient interview, examination, medical decision making process, and medical care plan development were reviewed and approved by Dr. Mi Massey M.D. Dr. Mi Massey M.D. is aware and concurs with the plan as stated in the body of this note and will attest to such by his/her cosignature. Nidia Lee Nov 03, 2018 10:20 Alejandro Massey MD Nov 03, 2018 11:14
--- NOTE | 2018-11-03 10:40 | ROOPDOC ---
[facility] Report Of Operation Report of Operation DATE OF PROCEDURE: 11/03/2018 PREOPERATIVE DIAGNOSES: Cerebral palsy, right lower extremity cellulitis, nonhealing wounds right foot and toes, right fifth toe osteomyelitis POSTOPERATIVE DIAGNOSES: Cerebral palsy, right lower extremity cellulitis, nonhealing wounds right foot and toes, right fifth toe osteomyelitis PROCEDURE: PROCEDURE: Abdominal aortogram Pelvic aortogram and bilateral iliofemoral angiogram Selective right common femoral artery catheter placement with right lower extremity angiogram. Selective right superficial femoral artery catheter placement with right lower extremity angiogram. Left common femoral arteriotomy closure with a Mynx closure device. SURGEON: Dr. Alicja Massey M.D. HOU[employer]Y SALES STAFF: None INDICATION: Patient is a 53-year-old male who noticed ulceration on the plantar surface of his right foot approximately 8 weeks ago and states that he has had ulcers like this before which healed spontaneously. The patient presented to the emergency room with swelling of the right lower extremity as well as extensive cellulitis and purulent drainage from the right foot ulcers. The patient has ulcers on the dorsum and plantar surface of the right foot at the base of the second and third toes and the fifth toe. The patient also had an x- ray of his right foot showing possible osteomyelitis in the right proximal phalanx of the fifth toe. Patient underwent ultrasound evaluation of his arterial inflow to the right lower extremity which showed monophasic flow distal to the common femoral artery suspicious for femoral-popliteal arterial atherosclerotic occlusive disease. Right lower extremity angiogram with possible angioplasty, stent and/or atherectomy was recommended. The procedure was described and explained in detail to the patient including drawing of pictures demonstrating the procedure and pertinent anatomy. Risks, benefits and alternative treatment options were discussed with the patient. Alternative treatment options included but were not limited to no intervention. Benefits include but were not limited to evaluation of arterial inflow to the lower extremities with possible intervention improving blood flow to the lower extremities. Risks included but were not limited to infection, bleeding, renal failure requiring hemodialysis, retroperitoneal hematoma, possible need for surgical intervention, possible requirement for transfusion of blood products, contrast dye reaction, allergic reaction and/or complication from the prepping and draping materials, sedation related complication, scarring of the skin, bruising, nerve injury, anesthetic complications, cerebrovascular accident, myocardial infarction, pulmonary embolus, deep venous thrombosis, loss of limb, loss of life, poor satisfaction and poor outcome. Risks of not performing the procedure included but were not limited to worsening of current symptoms, worsening of atherosclerotic arterial occlusive disease resulting in possible limb loss and . Patient's questions were answered. Patient voices understanding of these risks, benefits and alternative treatment options. Patient voices acceptance of the risks associated with angiography with possible angioplasty, stent and/or atherectomy and agrees to proceed with the procedure excepting the associated risks of the procedure. No guarantees or promises were made to the patient or his family regarding the results or outcome of the procedure. ANESTHESIA: Local Mac with 20 mL of 2% lidocaine mixed with 0.5% Marcaine. FLUORO TIME: 3 minutes, 20 seconds CONTRAST: 18.5 mL of Isovue 300 IVF: 400 mL ESTIMATED BLOOD LOSS: 5 mL. HEPARIN: None PROTAMINE: None COMPLICATIONS: None DRAINS: None SPECIMENS: None IMPLANTS: Left common femoral arteriotomy closure with a 5 Malaysian minx closure device PROCEDURE: The patient was taken to the angiography suite, placed supine on the angiography room table and prepped and draped in a standard surgical fashion. A procedural time out was performed by myself and the members of the team in the procedure room confirming the correct procedure, patient and laterality. The left common femoral artery was then cannulated with a micropuncture needle after anesthetizing the overlying skin and subcutaneous tissue with 2% lidocaine. The micropuncture wire was advanced through the micropuncture needle which was upsized to a micropuncture sheath. The Sahu wire was then advanced through the micropuncture sheath which was upsized to a 5 Malaysian sheath. The Omni flush catheter was advanced over the Sahu wire placed in the aorta at the level of the diaphragm and an abdominal aortogram was performed. The catheter was pulled down in the aorta to above the bifurcation of the iliac arteries and the pelvic aortogram and bilateral iliofemoral angiogram was performed. The catheter was then directed over the bifurcation of the iliac arteries using the Sahu wire and placed in the right common femoral artery selectively and a right lower extremity angiogram was performed. This demonstrated no significant stenosis. The catheter was then advanced into the right superficial femoral artery selectively as far distal as possible, using the Sahu wire, and a selective right lower extremity selective superficial femoral artery angiogram was perfor med. This demonstrated no significant stenosis. The arteriotomy in the left common femoral artery was closed using a 5 Malaysian Mynx closure device with an additional 10 min. of adjunctive pressure applied for hemostasis, which was noted. Dressings were then applied. Patient tolerated the procedure well. There were no complications. Dr. Massey was present for and directed the entire case. The patient was transferred to the recovery room and subsequently to the floor in stable condition. The procedure and results were discussed and described to the patient in the recovery room. All of the patient's questions were answered. RADIOLOGIC SUPERVISION AND INTERPRETATION: Abdominal aortogram: The aorta was widely patent with good filling of lumbar vessels. The superior mesenteric and celiac artery were widely patent with no stenosis noted. The renal arteries were patent bilaterally with no stenosis noted. The inferior mesenteric artery was patent. There was good filling of the distal intercostal arteries noted. Pelvic aortogram and bilateral iliofemoral angiogram: The infrarenal aorta was widely patent. The common iliac external and internal iliac arteries were widely patent bilaterally. The left common femoral and proximal superficial femoral and profunda femoris arteries were widely patent with no visualization below the puncture site on the left side. The right common femoral superficial femoral and proximal profunda femoris artery were widely patent. Selective right common femoral artery angiogram: The selective right common femoral artery catheter angiogram showed the right common femoral artery to be patent with mild luminal irregularity producing minimal stenosis. The superficial femoral and profunda femoris arteries were widely patent. Selective right superficial femoral artery angiogram: The selective right superficial femoral artery angiogram showed superficial femoral and above and below knee popliteal artery were widely patent. The below-knee runoff was via the anterior tibial and peroneal with no visualization of the posterior tibial artery. The course of the anterior tibial was regular bleeding into a large dorsalis pedis artery on the dorsum of the foot. Intervention: None A 5 Malaysian Mynx closure device was used to close the arteriotomy in the left common femoral artery. PLAN: Patient requires no intervention and has no significant atherosclerotic arterial occlusive disease requiring intervention. Alejandro Massey MD Nov 03, 2018 10:39
[2018-11-03] MEDS: ENOXAPARIN 40 MG/0.4 ML SYRINGE (J1650) SC SCH (10:57)
--- NOTE | 2018-11-03 11:03 | ROOPDOC ---
[facility] Report Of Operation Report of Operation DATE OF PROCEDURE: 11/03/2018 PREOPERATIVE DIAGNOSES: Cerebral palsy, right lower extremity cellulitis, right foot and toe ulceration and gangrene, right toe osteomyelitis. POSTOPERATIVE DIAGNOSES: Cerebral palsy, right lower extremity cellulitis, right foot and toe ulceration and gangrene, right toe osteomyelitis. . WOUND DESCRIPTION: The patient has 4 wounds on the right foot. The wound at the base of the second and third toes measures 4 cm in width 5 cm in length and 2 mm in depth with the wound extending to the plantar surface between the second and third toes with the wound on the plantar surface at the base of the second and third toes measuring 4 cm in length by 1 cm in width and 2 mm in depth. There is a wound on the lateral aspect at the base of the fifth toe which measures 4 cm in width by 2 cm in length and 2 mm in depth. This wound extends through the between the fourth and fifth toes with a wound at the base of the plantar surface of the fifth toe measuring 3 cm in length by 1 cm in width with 1 mm in depth. PROCEDURE: Excisional debridement of right foot wounds with sharp debridement of skin subcutaneous tissue and muscle. SURGEON: Dr. Alicja Massey M.D. PLATFORM STAPLER: None INDICATION: Patient is a 53-year-old male with right lower extremity cellulitis and extensive ulceration and gangrene of the right foot which has been present for approximately 8-9 weeks. The patient had cover the wounds with a sock and just recently presented to the emergency room after noting phallus drainage originating from the wounds through the socks. Patient underwent angiography this morning showing no intervention required and will now undergo debridement of the right foot wounds. Patient also had an x-ray showing possible osteomyelitis of the proximal phalanx of the right fifth toe. The procedure was explained and described to the patient in detail including drawing of pictures demonstrating the procedure pertinent anatomy. Risks, b enefits and alternative treatment options were discussed with the patient. Benefits included but were not limited to removal of nonviable tissue to reduce infection, aid in healing and prevent loss of limb or life. Alternative treatment options included but were not limited to no intervention with continued conservative management. Risks included but were not limited to infection, bleeding, renal failure requiring hemodialysis, possible need for further open surgical intervention, increased wound size, increased wound pain, hematoma formation, scarring, bruising, possible need for transfusion of blood products, complication and/or allergic reaction from the prepping and draping materials, complication and/or allergic reaction to the anesthetic medications, increased size or worsening of the wound, cerebrovascular accident, myocardial infarction, pulmonary embolus, deep venous thrombosis, loss of limb, loss of life, poor satisfaction, poor results and poor outcome. Risks of not performing the procedure included but were not limited to infection, worsening wound size or depth, loss of limb and loss of life. All of the patient's questions were answered. Patient voices understanding and acceptance of these risks, benefits and alternative treatment options and consents to proceed with excisional debridement of the right foot wounds. No promises or guarantees were made to the patient regarding the results or outcome of the procedure. ANESTHESIA: Mac. ESTIMATED BLOOD LOSS: 15 mL. IV FLUIDS: 25 HEPARIN: None PROTAMINE: None COMPLICATIONS: None. DRAINS: None SPECIMENS: None IMPLANTS: None PROCEDURE: Patient was taken to the operating room, placed supine on the operating room table and the patient was prepped and draped in a standard surgical fashion. A surgical time out confirming the correct patient, procedure and laterality was then performed by myself and the team members within the operating room. Excisional debridement was then performed with pickups and a scalpel with excision of all nonviable skin, subcutaneous tissue and muscle down to healthy bleeding tissue. The wound was then irrigated with saline solution. Dressings were then applied using xeroflow and gauze and wrapped with Kerlix. All instruments sponge and needle counts were correct at the end of the case. There were no complications. Dr. Massey was present for and directed the entire case. Patient was transferred to the recovery room awake, alert, extubated and in stable condition. The results of the procedure were explained and described to the patient in the recovery room with all of his questions being answered. Recommendation was made for the patient to undergo a right transmetatarsal amputation due to the fact that the patient has extensive wounds and gangrene which will most likely not heal and that the patient is not ambulatory with the right lower extremity. CONCLUSION: The right foot wounds underwent excisional debridement with removal of all nonviable tissue down to healthy bleeding tissue. The wounds are extensive and deep and are unlikely to heal and the recommendation is for the patient to undergo a right transmetatarsal amputation. PLAN: Patient agrees to proceed with a right transmetatarsal amputation which has been scheduled for 11/04/2018. Alejandro Massey MD Nov 03, 2018 11:03
[2018-11-03 14:00] VITALS: BP 122/78
[2018-11-03 14:29] VITALS: BP 122/78
[2018-11-03] MEDS: cefTRIAXone SOD 2 GM in D5W MINI-BAG PLUS 50 ML IV SCH (18:46)
--- NOTE | 2018-11-03 18:48 | IPNPDOC ---
Text Note Date of Service The patient was seen on 11/03/18. NOTE S: patient sitting in wheelchair. states no leg/foot pain. He states he has no concerns about upcoming amputation due to foot infection. He had arteriogram today with no blockage per verbal report O: Vitals as below General: pleasant NAD AAOx3 HRRR LCTA Right foot bandage intact and weeping serous fluid (soaked thru dressing). venous stasis changes to right pretibia A/P: 1) Severe RLE Cellulitis, Right Foot Proximal Phalanx of the 5th Digit concerning for Osteomyelitis continue with vancomycin and monitor for toxicity (high decision making), arely bateman zosyn to rocephin. Continue with IV antibiotics until ready for discharge as recommended by surgery, then change to bactrim po. Debridement of wound 11/03/18 with extensive ulcerations - possible osteomyelitis on xray and therefore scheduled for transmetatarsal amputation on 11/04/18 2) Bilateral rotator cuff strain (left more than right) - bengay rub prn, PT/OT consult 3) Hx of Cerebral Palsy, Wheelchair Bound Status - stable 4) Non-adherence to medical therapy prior to admission - Complicating care DVT prophylaxis Lovenox subcutaneous VS,Fishbone, I+O VS, Fishbone, I+O Laboratory Tests 11/03/18 05:47 Red Blood Count 4.81, Mean Corpuscular Volume 87.7, Mean Corpuscular Hemoglobin 27.4, Mean Corpuscular Hemoglobin Concent 31.3 L, Red Cell Distribution Width 14.2, Calcium Level 8.4 L, Aspartate Amino Transf (AST/SGOT) 15, Alanine Aminotransferase (ALT/SGPT) 12, Alkaline Phosphatase 77, Total Bilirubin 0.3, To asa Protein 6.9, Albumin 2.5 L Vital Signs Date Time Temp Pulse Resp B/P (MAP) Pulse Ox O2 Delivery O2 Flow Rate FiO2 11/03/18 14:00 99.0 98 16 122/78 (93) 95 11/03/18 09:13 2 10/30/18 16:58 Room Air I&O- Last 24 Hours up to 6 AM 11/03/18 06:00 Intake Total 1295 ml Output Total 350 ml Balance 945 ml PATRICIA MCDONOUGH DO Nov 03, 2018 18:48
[2018-11-03 21:34] VITALS: BP 109/62
--- NOTE | 2018-11-04 03:26 | PHACANCOPD ---
PHARMACY VANCOMYCIN DOSING Pt Demographics Demographics Patient Age:53 , Weight:79.550 , Gender: male Adjusted Body Weight Date: 10/31/18, Adjusted Body Weight: [71.48] Kg Events Past 24 Hours Events Past 24 Hours: NO: Dialysis, Diuretic Therapy, Change in CrCl, Fever, Elevation in WBC, Pending Diagnostics, Pending Procedures, Other Vancomycin Vancomycin indication: OSTEO Vancomycin Target Ranges: 15-20 mcg/ml Vancomycin Load Y/N: Yes Load Dose Date Time Vancomycin Load Dose: 2 Date: 10/30/18 Time: 1600 Vancomycin Dose Date: 11/01/18. Current Vancomycin Dose: [750MG IV Q12H] Intermittent Dosing?: No Labs Labs Item Value Date Time White Blood Count 8.9 10^3/uL 11/03/18 0547 Glomerular Filtration Rate > 60.0 11/03/18 0547 Creatinine 0.98 MG/DL 11/03/18 0547 Blood Urea Nitrogen 12 MG/DL 11/03/18 0547 Vancomycin Level Trough 15.8 UG/ML 11/04/18 0245 Micro Microbiology 10/30/18 Blood Culture - Preliminary, Resulted No Growth after 72 hours. All specime... 10/30/18 Blood Culture - Preliminary, Resulted No Growth after 72 hours. All specime... 10/30/18 Gram Stain - Final, Complete 10/30/18 Wound Culture - Final, Complete Proteus Mirabilis Staphylococcus Sp Coag Neg Globicatella Sanguinis Corynebacterium Species Creatinine Clearance Date:10/31/18. Creatinine Clearance: [89ML/MIN]. Assessment and Plan Maintaining Current Dose?: Yes Reason for dose change: No Dose Change Pharmacist Note Pharmacist Note Date: 11/04/18. Pharmacist note: Trough of 15.8 is within target range. Will continue current dosing. Will continue to monitor and make adjustments as needed. NICKY CHIU [facility] Nov 04, 2018 03:26
[2018-11-04] MEDS: VANCOMYCIN HCL 750 MG, VIAL MATE ADAPTER 1 EACH in D5W 250 ML IV SCH ×2 (04:30→16:13)
[2018-11-04 06:39] VITALS: BP 112/69
[2018-11-04 08:06] LABS: HEMATOCRIT 40.2 % (42.0-52.0); MEAN CORPUSCULAR HEMOGLOBIN 27.3 pg (27.0-33.0); MEAN CORPUSCULAR HGB CONC 32.3 g/dl (32.0-36.5); MEAN CORPUSCULAR VOLUME 84.3 fl (80.0-96.0); PLATELET COUNT, AUTOMATED 321 10^3/uL (150-450); RED BLOOD COUNT 4.77 10^6/uL (4.30-6.10); WHITE BLOOD COUNT 9.3 10^3/uL (4.0-10.0)
[2018-11-04] MEDS: ENOXAPARIN 40 MG/0.4 ML SYRINGE (J1650) SC SCH (08:27)
[2018-11-04 08:33] LABS: ALBUMIN 2.6 GM/DL (3.2-5.2); ALT/SGPT 14 U/L (12-78); BILIRUBIN,TOTAL 0.2 MG/DL (0.2-1.0); BLOOD UREA NITROGEN 11 MG/DL (7-18); C REACTIVE PROTEIN QUANTITATIV 2.62 MG/DL (0.00-0.30); CALCIUM LEVEL 8.6 MG/DL (8.5-10.1); CARBON DIOXIDE LEVEL 27 MEQ/L (21-32); CHLORIDE LEVEL 106 MEQ/L (98-107); GLOMERULAR FILTRATION RATE > 60.0 (>56); GLUCOSE, FASTING 88 MG/DL (70-100); MAGNESIUM LEVEL 2.3 MG/DL (1.8-2.4); POTASSIUM SERUM 3.9 MEQ/L (3.5-5.1); SODIUM LEVEL 139 MEQ/L (136-145); TOTAL PROTEIN 6.9 GM/DL (6.4-8.2)
[2018-11-04] MEDS ORDERED: LIDOCAINE 2% INJ 100 MG/5 ML SDV (FOR ANES.) As Ordered ONE (08:58)
[2018-11-04] MEDS ORDERED: PROPOFOL 500 MG/50 ML VIAL As Ordered ONE (08:59)
[2018-11-04] MEDS ORDERED: fentaNYL 100 MCG/2 ML INJECTION (J3010) As Ordered ONE (09:24)
[2018-11-04] MEDS ORDERED: MIDAZOLAM INJ 2 MG/2 ML VIAL (J2250) As Ordered ONE (09:25)
[2018-11-04] MEDS ORDERED: dexameTHASONE 4 MG/ML 1ML VIAL (J1100) As Ordered ONE (09:26)
[2018-11-04] MEDS ORDERED: ONDANSETRON 4MG/2ML VIAL (J2405) As Ordered ONE (09:26)
--- NOTE | 2018-11-04 10:29 | IPNPDOC ---
Date Seen The patient was seen on 11/04/18. Progress Note Vascular Surgery Dr Massey HPI: 53-year-old male who presented to the ER with a chief complaint of right lower extremity pain. He states that his symptoms began a few months ago when he noticed a wound on the bottom of his right foot. He stated that he started to have some discharge from the foot and put a sock over it about 8 weeks ago. He did not removed the sock since then. He notes that the pain in his right lower extremity had worsened, and he started to notice discharge from the sock. According to records, the patient's sock had to be cut off of his right lower extremity as it was stuck to his skin tissue. His skin has been noted to be macerated from below the knee to the foot where he had several areas of drainage. An XR of the Foot revealed soft tissue swelling and lytic lesion involving the proximal phalanx of the fifth digit suspicious for osteomyelitis. The patient was admitted to the hospitalist, vascular surgery is consulted re foot wound. The pt is in bed, denies pain. PMHx: Cerebral palsy. Wheelchair bound. PSHX: Hernia repair, Multiple leg surgeries, Eye surgery PE: GEN: 53yoM. No acute distress. HEENT: Normocephalic, atraumatic. Moist mucous membranes. EXT: Bandage intact Rt foot. RLE There is no ultrasonographic evidence of deep venous thrombosis involving any of the visualized deep venous structures of the right thigh, as described above. There is severe leg edema. Electronically Signed by Remington Sanders DO 10/30/2018 12:35 P XR foot Soft tissue swelling and lytic lesion as described above suspicious for osteomyelitis. There are other findings and chronic changes as described above. Electronically Signed by Remington Sanders DO 10/30/2018 12:[address] No acute bony destructive lesion. No soft tissue gas seen. Diffuse subcutaneous fat layer edema and dermal thickening. 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 Electronically Signed by Lucas Clarke MD 10/31/2018 03:41 P BLE Art US History: Right lower extremity wound. Sonographic findings: Ankle brachial index on the right could not be obtained due to the patient's wound. On the left the FREDA is normal at 0.95. Mild plaquing is seen bilaterally. No high-grade stenosis is detected. Monophasic waveforms are observed in the common femoral and profunda femoral artery on the right. Monophasic wave form is also noted in the distal posterior tibial artery on the right. Wave forms are otherwise normal. Arterial Doppler velocity chart right lower extremity: CF A 130 cm/S Profunda 80 Proximal SFA 136 Mid SFA 136 Distal SFA 107 Popliteal 120 Optimal AT A 30 Tibioperoneal trunk 116 Proximal CLIN TECH 106 Distal CLIN TECH 47 Distal AT A 68 Arterial Doppler velocity chart left lower extremity: CF A 89 cm/S Profunda 70 Proximal SFA 85 Mid SFA 86 Distal SFA 98 Popliteal 103 Proximal AT A 60 Tibioperoneal trunk 73 Proximal CLIN TECH 55 Distal CLIN TECH 58 Distal AT A 61 Electronically Signed by Lucas Clarke MD 11/01/2018 12:22 P Angiogram 11/04/18 Dr Massey. No intervention. A&P: 1. RLE wound/cellulitis/possible OM. US neg for DVT. XR foot possible OM. BC x 2 neg. WC Organism 1 PROTEUS MIRABILIS QUANTITY OF GROWTH MODERATE Organism 2 CORYNEBACTERIUM SPECIES QUANTITY OF GROWTH MODERATE IV Vanco/Rocephin as per Medicine Svc. RLE angiogram 11/03/[address] Massey no intervention necessary. S/P Rt foot debridement as per Dr Massey 11/03/18. Plan as per Dr Massey 11/04/18 is for Rt TMA today. 2. DVT prophylaxis. Lovenox. VS, I&O, 24H, Fishbone Vital Signs/I&O Vital Signs Date Time Temp Pulse Resp B/P (MAP) Pulse Ox O2 Delivery O2 Flow Rate FiO2 11/04/18 06:40 76 96 11/04/18 06:39 97.6 20 112/69 (83) 11/03/18 09:13 2 10/30/18 16:58 Room Air I&O- Last 24 Hours up to 6 AM 11/04/18 06:00 Intake Total 1830 ml Output Total 1250 ml Balance 580 ml Laboratory Data 24H LABS Laboratory Tests 2 11/04/18 02:45: Vancomycin Level Trough 15.8 11/04/18 07:54: Nucleated Red Blood Cells % (auto) 0.0, Anion Gap 6L, Glomerular Filtration Rate > 60.0, Blood Urea Nitrogen 11, Creatinine 0.90, Sodium Level 139, Potassium Le davey 3.9, Chloride Level 106, Carbon Dioxide Level 27, Calcium Level 8.6, Aspartate Amino Transf (AST/SGOT) 19, Alanine Aminotransferase (ALT/SGPT) 14, Alkaline Phosphatase 79, Total Bilirubin 0.2, Total Protein 6.9, Albumin 2.6L, Magnesium Level 2.3, C-Reactive Protein, Quantitative 2.62H, Albumin/Globulin Ratio 0.60L CBC/BMP Laboratory Tests 11/04/18 07:54 Red Blood Count 4.77, Mean Corpuscular Volume 84.3, Mean Corpuscular Hemoglobin 27.3, Mean Corpuscular Hemoglobin Concent 32.3, Red Cell Distribution Width 14.1, Calcium Level 8.6, Aspartate Amino Transf (AST/SGOT) 19, Alanine Aminotransferase (ALT/SGPT) 14, Alkaline Phosphatase 79, Total Bilirubin 0.2, Total Protein 6.9, Albumin 2.6 L Microbiology Microbiology 10/30/18 Blood Culture - Preliminary, Resulted No Growth after 72 hours. All specime... 10/30/18 Blood Culture - Preliminary, Resulted No Growth after 72 hours. All specime... 10/30/18 Gram Stain - Final, Complete 10/30/18 Wound Culture - Final, Complete Proteus Mirabilis Staphylococcus Sp Coag Neg Globicatella Sanguinis Corynebacterium Species Attending Note Attending Note VASCULAR SURGICAL ATTENDING NOTE: Dr. Alicja Massey M.D. The patient was seen on 11/04/18 at 11:19. ASSESSMENT: Patient is a 53-year-old male with gangrene of the right foot and toes who underwent angiography showing no significant atherosclerotic arterial occlusive disease requiring intervention. Recommendation was for the patient to undergo a transmetatarsal amputation which was scheduled for today but the patient ate this morning and this necessitated the right transmetatarsal dictation being scheduled for tomorrow morning. PLAN: Patient will undergo a right transmetatarsal amputation on 11/05/2018. Patient is to be nothing by mouth after midnight on 11/04/2018. Patient will continue with current IV antibiotic regimen. Marcell Garland was the attending vascular surgeon for this patient encounter. The patient was seen, examined, interviewed and evaluated independently by Dr. Mi Massey M.D. Dr. Mi Massey M.D. was fully available during the consultation evaluation. All aspects of the patient interview, examination, medical decision making process, and medical care plan development were reviewed and approved by Dr. Mi Massey M.D. is aware and concurs with the plan as stated in the body of this note and will attest to such by his/her cosignature. Nidia Lee Nov 04, 2018 10:28 Alejandro Massey MD Nov 04, 2018 13:52
[2018-11-04 14:00] VITALS: BP 117/71
[2018-11-04] MEDS: cefTRIAXone SOD 2 GM in D5W MINI-BAG PLUS 50 ML IV SCH (19:04)
--- NOTE | 2018-11-04 19:22 | IPNPDOC ---
Text Note Date of Service The patient was seen on 11/04/18. NOTE S: patient was to have transmetatarsal amputation today but this has been pos tponed. He states no pain. still with foot drainage. no fever O: Vitals as below General: pleasant NAD AAOx3 HRRR Right foot bandage intact and weeping serous fluid (soaked thru dressing). venous stasis changes to right pretibia A/P: 1) Severe RLE Cellulitis, Right Foot Proximal Phalanx of the 5th Digit concerning for Osteomyelitis continue with vancomycin and monitor for toxicity (high decision making), and rocephin. Continue with IV antibiotics until ready for discharge as recommended by surgery, then change to bactrim po. Debridement of wound 11/03/18 with extensive ulcerations - possible osteomyelitis on xray and therefore scheduled for transmetatarsal amputation on 11/05/18 2) Bilateral rotator cuff strain (left more than right) - bengay rub prn, PT/OT consult 3) Hx of Cerebral Palsy, Wheelchair Bound Status - stable 4) Non-adherence to medical therapy prior to admission - Complicating care Current Medications Medications (Trade) Dose Ordered Sig/Maude Route PRN Reason Start Time Stop Time Status Last Admin Dose Admin Ceftriaxone Sodium 2 gm/ Dextrose 50 ml @ 100 mls/hr Q24H IV 11/02/18 18:00 11/04/18 19:04 Enoxaparin Sodium (Lovenox) 40 mg DAILY SC 10/31/18 09:00 11/04/18 08:27 Fentanyl Citrate (Sublimaze) 25 mcg Q5MP PRN IV MODERATE PAIN (PS 4-7) 11/03/18 10:15 11/03/18 11:15 DC Home Med (Med Rec Complete!) ASDIRECTED XX 10/30/18 13:00 10/30/18 13:01 DC Lactated Ringer's 1,000 ml @ 75 mls/hr [id number] IV 11/03/18 10:15 11/03/18 11:15 DC Ondansetron HCl (ZOFRAN INJection) 4 mg Q4HP PRN IV NAUSEA OR VOMITING 11/03/18 10:15 11/03/18 11:15 DC Oxycodone/ Acetaminophen (Percocet 5mg/ 325mg Tablet) 1 tab ASDIRECTED PRN PO MILD/MODERATE PAIN (PS 1-7) 11/03/18 10:15 11/03/18 11:15 DC Piperacillin Sod/ Tazobactam Sod 3.375 gm/Dextrose 50 ml @ 50 mls/hr Q6H IV 10/30/18 20:00 11/02/18 17:22 DC 11/02/18 14:36 Potassium Chloride/Sodium Chloride 1,000 ml @ 250 mls/hr Q4H IV 10/30/18 11:15 10/30/18 14:21 DC 10/30/18 12:31 Sodium Chloride 1,000 ml @ 100 mls/hr Q10H IV 10/30/18 14:30 10/31/18 00:01 DC 10/30/18 18:02 Vancomycin HCl 750 mg/IV Miscellaneous Supplies 1 each/ Dextrose 275 ml @ 275 mls/hr Q12H IV 11/02/18 04:00 11/04/18 16:13 Vancomycin HCl 750 mg/IV Miscellaneous Supplies 1 each/ Dextrose 275 ml @ 275 mls/hr Q8H IV 11/01/18 00:00 11/01/18 23:47 DC 11/01/18 16:21 Vancomycin HCl 1000 mg/IV Miscellaneous Supplies 1 each/ Dextrose 270 ml @ 270 mls/hr Q8H IV 10/30/18 16:00 10/31/18 15:56 DC 10/31/18 15:32 VS,Fishbone, I+O VS, Fishbone, I+O Laboratory Tests 11/04/18 07:54 Red Blood Count 4.77, Mean Corpuscular Volume 84.3, Mean Corpuscular Hemoglobin 27.3, Mean Corpuscular Hemoglobin Concent 32.3, Red Cell Distribution Width 14.1, Calcium Level 8.6, Aspartate Amino Transf (AST/SGOT) 19, Alanine Aminotransferase (ALT/SGPT) 14, Alkaline Phosphatase 79, Total Bilirubin 0.2, Total Protein 6.9, Albumin 2.6 L Vital Signs Date Time Temp Pulse Resp B/P (MAP) Pulse Ox O2 Delivery O2 Flow Rate FiO2 11/04/18 14:00 97.4 80 16 117/71 (86) 96 11/03/18 09:13 2 10/30/18 16:58 Room Air I&O- Last 24 Hours up to 6 AM 11/04/18 06:00 Intake Total 1830 ml Output Total 1250 ml Balance 580 ml PATRICIA MCDONOUGH DO Nov 04, 2018 19:22
[2018-11-04 22:00] VITALS: BP 120/72
[2018-11-05] MEDS: VANCOMYCIN HCL 750 MG, VIAL MATE ADAPTER 1 EACH in D5W 250 ML IV SCH ×2 (03:26→15:37)
[2018-11-05 06:00] VITALS: BP 123/72
[2018-11-05 06:10] VITALS: BP 121/69
[2018-11-05 06:43] LABS: HEMATOCRIT 40.5 % (42.0-52.0); MEAN CORPUSCULAR HEMOGLOBIN 27.8 pg (27.0-33.0); MEAN CORPUSCULAR HGB CONC 32.1 g/dl (32.0-36.5); MEAN CORPUSCULAR VOLUME 86.5 fl (80.0-96.0); PLATELET COUNT, AUTOMATED 291 10^3/uL (150-450); RED BLOOD COUNT 4.68 10^6/uL (4.30-6.10); WHITE BLOOD COUNT 8.8 10^3/uL (4.0-10.0)
[2018-11-05 07:08] LABS: ALBUMIN 2.6 GM/DL (3.2-5.2); ALT/SGPT 16 U/L (12-78); BILIRUBIN,TOTAL 0.2 MG/DL (0.2-1.0); BLOOD UREA NITROGEN 16 MG/DL (7-18); C REACTIVE PROTEIN QUANTITATIV 2.04 MG/DL (0.00-0.30); CALCIUM LEVEL 8.5 MG/DL (8.5-10.1); CARBON DIOXIDE LEVEL 26 MEQ/L (21-32); CHLORIDE LEVEL 107 MEQ/L (98-107); CREATININE FOR GFR 0.86 MG/DL (0.70-1.30); GLOMERULAR FILTRATION RATE > 60.0 (>56); GLUCOSE, FASTING 99 MG/DL (70-100); MAGNESIUM LEVEL 2.3 MG/DL (1.8-2.4); POTASSIUM SERUM 3.7 MEQ/L (3.5-5.1); SODIUM LEVEL 140 MEQ/L (136-145); TOTAL PROTEIN 6.9 GM/DL (6.4-8.2)
[2018-11-05] MEDS: ENOXAPARIN 40 MG/0.4 ML SYRINGE (J1650) SC SCH (10:35)
[2018-11-05 13:48] VITALS: BP 121/69
[2018-11-05] MEDS ORDERED: MIDAZOLAM INJ 2 MG/2 ML VIAL (J2250) As Ordered ONE (14:43)
[2018-11-05] MEDS ORDERED: ONDANSETRON 4MG/2ML VIAL (J2405) As Ordered ONE (14:43)
[2018-11-05] MEDS ORDERED: PROPOFOL 200 MG/20 ML VIAL As Ordered ONE (14:43)
[2018-11-05] MEDS ORDERED: fentaNYL 100 MCG/2 ML INJECTION (J3010) As Ordered ONE (14:43)
[2018-11-05] MEDS ORDERED: LIDOCAINE 2% INJ 100 MG/5 ML SDV (FOR ANES.) As Ordered ONE (14:43)
[2018-11-05] MEDS: cefTRIAXone SOD 2 GM in D5W MINI-BAG PLUS 50 ML IV SCH (17:27)
--- NOTE | 2018-11-05 19:31 | IPNPDOC ---
Text Note Date of Service The patient was seen on 11/05/18. NOTE S: patient seen at 0900 and is scheduled to have transmetatarsal amputation at noon today. he has no questions or concerns. O: Vitals as below General: pleasant NAD AAOx3 HRRR Right foot bandage intact A/P: 1) Severe RLE Cellulitis, Right Foot Proximal Phalanx of the 5th Digit concerning for Osteomyelitis continue with vancomycin and monitor for toxicity (high decision making), and rocephin. Continue with IV antibiotics until ready for discharge as recommended by surgery, then change to bactrim po. Debridement of wound 11/03/18 with extensive ulcerations - possible osteomyelitis on xray and therefore scheduled for transmetatarsal amputation on 11/05/18 2) Bilateral rotator cuff strain (left more than right) - bengay rub prn, PT/OT consult 3) Hx of Cerebral Palsy, Wheelchair Bound Status - stable 4) Non-adherence to medical therapy prior to admission - Complicating care Current Medications Medications (Trade) Dose Ordered Sig/Maude Route PRN Reason Start Time Stop Time Status Last Admin Dose Admin Ceftriaxone Sodium 2 gm/ Dextrose 50 ml @ 100 mls/hr Q24H IV 11/02/18 18:00 11/05/18 17:27 Enoxaparin Sodium (Lovenox) 40 mg DAILY SC 10/31/18 09:00 11/05/18 10:35 Fentanyl Citrate (Sublimaze) 25 mcg Q5MP PRN IV MODERATE PAIN (PS 4-7) 11/03/18 10:15 11/03/18 11:15 DC Home Med (Med Rec Complete!) ASDIRECTED XX 10/30/18 13:00 10/30/18 13:01 DC Lactated Ringer's 1,000 ml @ 75 mls/hr [id number] IV 11/03/18 10:15 11/03/18 11:15 DC Ondansetron HCl (ZOFRAN INJection) 4 mg Q4HP PRN IV NAUSEA OR VOMITING 11/03/18 10:15 11/03/18 11:15 DC Oxycodone/ Acetaminophen (Percocet 5mg/ 325mg Tablet) 1 tab ASDIRECTED PRN PO MILD/MODERATE PAIN (PS 1-7) 11/03/18 10:15 11/03/18 11:15 DC Piperacillin Sod/ Tazobactam Sod 3.375 gm/Dextrose 50 ml @ 50 mls/hr Q6H IV 10/30/18 20:00 11/02/18 17:22 DC 11/02/18 14:36 Potassium Chloride/Sodium Chloride 1,000 ml @ 250 mls/hr Q4H IV 10/30/18 11:15 10/30/18 14:21 DC 10/30/18 12:31 Sodium Chloride 1,000 ml @ 100 mls/hr Q10H IV 10/30/18 14:30 10/31/18 00:01 DC 10/30/18 18:02 Vancomycin HCl 750 mg/IV Miscellaneous Supplies 1 each/ Dextrose 275 ml @ 275 mls/hr Q12H IV 11/02/18 04:00 11/05/18 15:37 Vancomycin HCl 750 mg/IV Miscellaneous Supplies 1 each/ Dextrose 275 ml @ 275 mls/hr Q8H IV 11/01/18 00:00 11/01/18 23:47 DC 11/01/18 16:21 Vancomycin HCl 1000 mg/IV Miscellaneous Supplies 1 each/ Dextrose 270 ml @ 270 mls/hr Q8H IV 10/30/18 16:00 10/31/18 15:56 DC 10/31/18 15:32 VS,Fishbone, I+O VS, Fishbone, I+O Laboratory Tests 11/05/18 06:02 Red Blood Count 4.68, Mean Corpuscular Volume 86.5, Mean Corpuscular Hemoglobin 27.8, Mean Corpuscular Hemoglobin Concent 32.1, Red Cell Distribution Width 14.3, Calcium Level 8.5, Aspartate Amino Transf (AST/SGOT) 19, Alanine Aminotransferase (ALT/SGPT) 16, Alkaline Phosphatase 82, Total Bilirubin 0.2, Total Protein 6.9, Albumin 2.6 L Vital Signs Date Time Temp Pulse Resp B/P (MAP) Pulse Ox O2 Delivery O2 Flow Rate FiO2 11/05/18 14:00 78 19 96 11/05/18 13:48 97.8 121/69 (86) 11/03/18 09:13 2 10/30/18 16:58 Room Air I&O- Last 24 Hours up to 6 AM 11/05/18 06:00 Intake Total 1345 ml Output Total 1050 ml Balance 295 ml Item Value Date Time Vancomycin Level Trough 15.8 UG/ML 11/04/18 0245 Vancomycin Level Trough 14.9 UG/ML 11/02/18 1514 Vancomycin Level Trough 23.0 UG/ML H 11/01/18 2308 Vancomycin Level Trough 22.5 UG/ML H 11/01/18 1122 Vancomycin Level Trough 22.7 UG/ML H 10/31/18 1449 PATRICIA MCDONOUGH DO Nov 05, 2018 19:31
[2018-11-05 22:00] VITALS: BP 123/72
[2018-11-06] VITALS (8 sets, daily range): BP systolic 102–135; BP diastolic 53–85
[2018-11-06] MEDS: VANCOMYCIN HCL 750 MG, VIAL MATE ADAPTER 1 EACH in D5W 250 ML IV SCH ×2 (04:49→15:17)
[2018-11-06 06:48] LABS: HEMATOCRIT 40.8 % (42.0-52.0); MEAN CORPUSCULAR HEMOGLOBIN 27.5 pg (27.0-33.0); MEAN CORPUSCULAR HGB CONC 31.9 g/dl (32.0-36.5); MEAN CORPUSCULAR VOLUME 86.3 fl (80.0-96.0); PLATELET COUNT, AUTOMATED 296 10^3/uL (150-450); RED BLOOD COUNT 4.73 10^6/uL (4.30-6.10); WHITE BLOOD COUNT 8.6 10^3/uL (4.0-10.0)
[2018-11-06 07:17] LABS: ALBUMIN 2.6 GM/DL (3.2-5.2); ALT/SGPT 19 U/L (12-78); BILIRUBIN,TOTAL 0.3 MG/DL (0.2-1.0); BLOOD UREA NITROGEN 14 MG/DL (7-18); C REACTIVE PROTEIN QUANTITATIV 1.57 MG/DL (0.00-0.30); CALCIUM LEVEL 8.5 MG/DL (8.5-10.1); CARBON DIOXIDE LEVEL 27 MEQ/L (21-32); CHLORIDE LEVEL 105 MEQ/L (98-107); CREATININE FOR GFR 0.94 MG/DL (0.70-1.30); GLOMERULAR FILTRATION RATE > 60.0 (>56); GLUCOSE, FASTING 113 MG/DL (70-100); MAGNESIUM LEVEL 2.4 MG/DL (1.8-2.4); POTASSIUM SERUM 3.4 MEQ/L (3.5-5.1); SODIUM LEVEL 138 MEQ/L (136-145); TOTAL PROTEIN 6.9 GM/DL (6.4-8.2)
[2018-11-06] MEDS ORDERED: ONDANSETRON 4MG/2ML VIAL (J2405) As Ordered ONE (08:04)
[2018-11-06] MEDS ORDERED: PROPOFOL 200 MG/20 ML VIAL As Ordered ONE (08:04)
[2018-11-06] MEDS ORDERED: LIDOCAINE 2% INJ 100 MG/5 ML SDV (FOR ANES.) As Ordered ONE (08:04)
[2018-11-06] MEDS ORDERED: POTASSIUM CHLORIDE 10 MEQ SR TABLET PO ONE (09:00)
[2018-11-06] MEDS ORDERED: LIDOCAINE 2% MDV 20 ML VIAL As Ordered ONE (09:56)
[2018-11-06] MEDS ORDERED: BUPIVACAINE HCL 0.5% 10 ML VIAL As Ordered ONE (09:56)
[2018-11-06] MEDS ORDERED: fentaNYL 100 MCG/2 ML INJECTION (J3010) As Ordered ONE (10:35)
[2018-11-06] MEDS: fentaNYL 100 MCG/2 ML INJECTION (J3010) IV PRN ×2 (10:38→10:43)
[2018-11-06] MEDS ORDERED: ONDANSETRON 4MG/2ML VIAL (J2405) IV PRN (11:00)
[2018-11-06] MEDS ORDERED: LR 1,000 ML IV SCH (11:00)
[2018-11-06] MEDS ORDERED: METOCLOPRAMIDE INJ 10MG/2ML VIAL (J2765) IV PRN (11:00)
[2018-11-06] MEDS: ENOXAPARIN 40 MG/0.4 ML SYRINGE (J1650) SC SCH (12:06)
--- NOTE | 2018-11-06 16:46 | IPNPDOC ---
Text Note Date of Service The patient was seen on 11/06/18. NOTE S: patient underwent transmetatarsal amputation yesterday. Is in good spirit and states no pain. Is currently non weight bearing. O: Vitals as below General: pleasant NAD AAOx3 HRRR LCTA Ext: no edema; right foot bandage intact; venous stasis changed A/P: 1) Severe RLE Cellulitis, Right Foot Proximal Phalanx of the 5th Digit with Osteomyelitis continue with vancomycin and monitor for toxicity (high decision making), and rocephin. Continue with IV antibiotics until ready for discharge as recommended by surgery, then change to bactrim po. Debridement of wound 11/03/18 with extensive ulcerations - transmetatarsal amputation on 11/05/18 2) Bilateral rotator cuff strain (left more than right) - [facility]je[facility] hall prn, PT/OT consult 3) Hx of Cerebral Palsy, Wheelchair Bound Status - stable 4) Non-adherence to medical therapy prior to admission - Complicating care Disposition: will need rehab. Await surgery recommendation for when PT/OT can start; NWB at this time. VS,Fishbone, I+O VS, Fishbone, I+O Laboratory Tests 11/06/18 06:29 Red Blood Count 4.73, Mean Corpuscular Volume 86.3, Mean Corpuscular Hemoglobin 27.5, Mean Corpuscular Hemoglobin Concent 31.9 L, Red Cell Distribution Width 14.2, Calcium Level 8.5, Aspartate Amino Transf (AST/SGOT) 17, Alanine Aminotransferase (ALT/SGPT) 19, Alkaline Phosphatase 78, Total Bilirubin 0.3, Total Protein 6.9, Albumin 2.6 L Vital Signs Date Time Temp Pulse Resp B/P (MAP) Pulse Ox O2 Delivery O2 Flow Rate FiO2 11/06/18 06:00 97.2 65 18 117/67 (84) 99 11/03/18 09:13 2 I&O- Last 24 Hours up to 6 AM 11/06/18 06:00 Intake Total 710 ml Output Total 1375 ml Balance -665 ml PATRICIA MCDONOUGH DO Nov 06, 2018 08:33
[2018-11-06] MEDS: cefTRIAXone SOD 2 GM in D5W MINI-BAG PLUS 50 ML IV SCH (16:51)
--- NOTE | 2018-11-06 19:13 | PHACANCOPD ---
PHARMACY VANCOMYCIN DOSING Pt Demographics Demographics Patient Age:53 , Weight:70.500 , Gender: male Adjusted Body Weight Date: 10/31/18, Adjusted Body Weight: [71.48] Kg Events Past 24 Hours Events Past 24 Hours: NO: Dialysis, Diuretic Therapy, Change in CrCl, Fever, Elevation in WBC, Pending Diagnostics, Pending Procedures, Other Vancomycin Vancomycin indication: OSTEO Vancomycin Target Ranges: 15-20 mcg/ml Vancomycin Load Y/N: Yes Load Dose Date Time Vancomycin Load Dose: 2 Date: 10/30/18 Time: 1600 Vancomycin Dose Date: 11/01/18. Current Vancomycin Dose: [750MG IV Q12H] Intermittent Dosing?: No Labs Labs Item Value Date Time White Blood Count 9.3 10^3/uL 11/04/18 0754 White Blood Count 8.8 10^3/uL 11/05/18 0602 White Blood Count 8.6 10^3/uL 11/06/18 0629 Vancomycin Level Trough 14.9 UG/ML 11/02/18 1514 Vancomycin Level Trough 15.8 UG/ML 11/04/18 0245 Vancomycin Level Trough 14.5 UG/ML 11/06/18 1441 Micro Microbiology 10/30/18 Blood Culture - Final, Complete NO GROWTH AFTER 5 DAYS 10/30/18 Blood Culture - Final, Complete NO GROWTH AFTER 5 DAYS 10/30/18 Gram Stain - Final, Complete 10/30/18 Wound Culture - Final, Complete Proteus Mirabilis Staphylococcus Sp Coag Neg Globicatella Sanguinis Corynebacterium Species Creatinine Clearance Date:10/31/18. Creatinine Clearance: [89ML/MIN]. Assessment and Plan Maintaining Current Dose?: Yes Reason for dose change: No Dose Change Pharmacist Note Pharmacist Note Date: 11/06/18. Pharmacist note: Trough came back today @14.5mcg/ml @14:41. We will continue 750mg iv q12h. We will continue to monitor and adjust the dose as needed. Date: 11/04/18. Pharmacist note: Trough of 15.8 is within target range. Will continue current dosing. Will continue to monitor and make adjustments as needed. DAMION CALDERON PHARMAC[facility] Nov 06, 2018 19:13
[2018-11-06] MEDS: PERCOCET 5MG/325MG TAB PO PRN (23:30)
[2018-11-07] VITALS: BP 144/87
[2018-11-07] MEDS: PERCOCET 5MG/325MG TAB PO PRN ×4 (03:42→20:30)
[2018-11-07] MEDS: VANCOMYCIN HCL 750 MG, VIAL MATE ADAPTER 1 EACH in D5W 250 ML IV SCH ×2 (03:42→16:03)
[2018-11-07 04:00] VITALS: BP 134/87
[2018-11-07 07:04] LABS: BLOOD UREA NITROGEN 13 MG/DL (7-18); C REACTIVE PROTEIN QUANTITATIV 1.74 MG/DL (0.00-0.30); CALCIUM LEVEL 8.3 MG/DL (8.5-10.1); CARBON DIOXIDE LEVEL 30 MEQ/L (21-32); CHLORIDE LEVEL 105 MEQ/L (98-107); CREATININE FOR GFR 0.97 MG/DL (0.70-1.30); GLOMERULAR FILTRATION RATE > 60.0 (>56); GLUCOSE, FASTING 108 MG/DL (70-100); POTASSIUM SERUM 3.9 MEQ/L (3.5-5.1); SODIUM LEVEL 138 MEQ/L (136-145)
[2018-11-07] MEDS: ENOXAPARIN 40 MG/0.4 ML SYRINGE (J1650) SC SCH (09:04)
[2018-11-07 15:24] VITALS: BP 139/87
[2018-11-07] MEDS: cefTRIAXone SOD 2 GM in D5W MINI-BAG PLUS 50 ML IV SCH (18:20)
--- NOTE | 2018-11-07 19:24 | IPNPDOC ---
Text Note Date of Service The patient was seen on 11/07/18. NOTE S: Patient using wheelchair to mobilize in hallway. Is in good spirit and s tates no pain. Is currently non weight bearing. O: Vitals as below General: pleasant NAD AAOx3 HRRR LCTA Ext: no edema; right foot bandage intact; venous stasis to pretib - unchanged A/P: 1) Severe RLE Cellulitis, Right Foot Proximal Phalanx of the 5th Digit with Osteomyelitis continue with vancomycin and monitor for toxicity (high decision making), and rocephin. Continue with IV antibiotics until ready for discharge as recommended by surgery, then change to bactrim po. Debridement of wound 11/03/18 with extensive ulcerations - transmetatarsal amputation on 11/05/18 Await surgery recommendations on weight bearing status and PT/OT 2) Bilateral rotator cuff strain (left more than right) - sanje[facility] hall prn, PT/OT consult 3) Hx of Cerebral Palsy, Wheelchair Bound Status - stable 4) Non-adherence to medical therapy prior to admission - Complicating care Disposition: will need rehab. Await surgery recommendation for when PT/OT can start; NWB at this time. VS,Fishbone, I+O VS, Fishbone, I+O Laboratory Tests 11/07/18 06:03 Calcium Level 8.3 L Vital Signs Date Time Temp Pulse Resp B/P (MAP) Pulse Ox O2 Delivery O2 Flow Rate FiO2 11/07/18 16:33 16 11/07/18 04:00 97.3 74 134/87 (103) 98 11/06/18 14:00 1.0 I&O- Last 24 Hours up to 6 AM 11/07/18 06:00 Intake Total 2110 ml Output Total 1500 ml Balance 610 ml PATRICIA MCDONOUGH DO Nov 07, 2018 19:24
[2018-11-07 22:57] VITALS: BP 115/75
[2018-11-08] MEDS: VANCOMYCIN HCL 750 MG, VIAL MATE ADAPTER 1 EACH in D5W 250 ML IV SCH ×2 (05:04→15:55)
[2018-11-08 06:06] VITALS: BP 120/76
[2018-11-08] MEDS: PERCOCET 5MG/325MG TAB PO PRN ×2 (06:24→20:37)
[2018-11-08] MEDS: ENOXAPARIN 40 MG/0.4 ML SYRINGE (J1650) SC SCH (09:23)
--- NOTE | 2018-11-08 10:14 | IPNPDOC ---
Date Seen The patient was seen on 11/07/18. Progress Note Progress Note Vascular Surgery Dr Massey HPI: 53-year-old male who presented to the ER with a chief complaint of right lower extremity pain. He states that his symptoms began a few months ago when he noticed a wound on the bottom of his right foot. He stated that he started to have some discharge from the foot and put a sock over it about 8 weeks ago. He did not removed the sock since then. He notes that the pain in his right lower extremity had worsened, and he started to notice discharge from the sock. According to records, the patient's sock had to be cut off of his right lower extremity as it was stuck to his skin tissue. His skin has been noted to be macerated from below the knee to the foot where he had several areas of drainage. An XR of the Foot revealed soft tissue swelling and lytic lesion involving the proximal phalanx of the fifth digit suspicious for osteomyelitis. The patient was admitted to the hospitalist, vascular surgery is consulted re foot wound. The pt reports pain controlled. No new concerns. PMHx: Cerebral palsy. Wheelchair bound. PSHX: Hernia repair, Multiple leg surgeries, Eye surgery PE: GEN: 53yoM. No acute distress. HEENT: Normocephalic, atraumatic. Moist mucous membranes. EXT: Bandage intact Rt foot. RLE There is no ultrasonographic evidence of deep venous thrombosis involving any of the visualized deep venous structures of the right thigh, as described above. There is severe leg edema. Electronically Signed by Remington Sanders DO 10/30/2018 12:35 P XR foot Soft tissue swelling and lytic lesion as described above suspicious for osteomyelitis. There are other findings and chronic changes as described above. Electronically Signed by Remington Sanders DO 10/30/2018 12:[address] No acute bony destructive lesion. No soft tissue gas seen. Diffuse subcutaneous fat layer edema and dermal thickening. 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 Electronically Signed by Lucas Clarke MD 10/31/2018 03:41 P BLE Art US History: Right lower extremity wound. Sonographic findings: Ankle brachial index on the right could not be obtained due to the patient's wound. On the left the FREDA is normal at 0.95. Mild plaquing is seen bilaterally. No high-grade stenosis is detected. Monophasic waveforms are observed in the common femoral and profunda femoral artery on the right. Monophasic wave form is also noted in the distal posterior tibial artery on the right. Wave forms are otherwise normal. Arterial Doppler velocity chart right lower extremity: CF A 130 cm/S Profunda 80 Proximal SFA 136 Mid SFA 136 Distal SFA 107 Popliteal 120 Optimal AT A 30 Tibioperoneal trunk 116 Proximal POLE PEELING MACHINE OPERATOR 106 Distal POLE PEELING MACHINE OPERATOR 47 Distal AT A 68 Arterial Doppler velocity chart left lower extremity: CF A 89 cm/S Profunda 70 Proximal SFA 85 Mid SFA 86 Distal SFA 98 Popliteal 103 Proximal AT A 60 Tibioperoneal trunk 73 Proximal POLE PEELING MACHINE OPERATOR 55 Distal POLE PEELING MACHINE OPERATOR 58 Distal AT A 61 Electronically Signed by Lucas Clarke MD 11/01/2018 12:22 P Angiogram 11/04/18 Dr Massey. No intervention. A&P: 1. RLE wound/cellulitis/possible OM. US neg for DVT. XR foot possible OM. BC x 2 neg. WC Organism 1 PROTEUS MIRABILIS QUANTITY OF GROWTH MODERATE Organism 2 CORYNEBACTERIUM SPECIES QUANTITY OF GROWTH MODERATE IV Vanco/Rocephin as per Medicine Svc. RLE angiogram 11/03/[address] Massey no intervention necessary. S/P Rt foot debridement as per Dr Massey 11/03/18. S/P Rt TMA 11/04/[address] Massey. No report available. Plan as per Dr Massey 11/08/18 is for TMA revision and flap closure 11/10/18. Dressing in place. 2. DVT prophylaxis. Lovenox. VS, I&O, 24H, Fishbone Vital Signs/I&O Vital Signs Date Time Temp Pulse Resp B/P (MAP) Pulse Ox O2 Delivery O2 Flow Rate FiO2 11/08/18 06:54 16 11/08/18 06:06 97.7 84 120/76 (91) 96 11/06/18 14:00 1.0 I&O- Last 24 Hours up to 6 AM 11/08/18 06:00 Intake Total 1200 ml Output Total 1100 ml Balance 100 ml Laboratory Data Microbiology Microbiology 10/30/18 Blood Culture - Final, Complete NO GROWTH AFTER 5 DAYS 10/30/18 Blood Culture - Final, Complete NO GROWTH AFTER 5 DAYS 10/30/18 Gram Stain - Final, Complete 10/30/18 Wound Culture - Final, Complete Proteus Mirabilis Staphylococcus Sp Coag Neg Globicatella Sanguinis Corynebacterium Species Nidia Lee Nov 08, 2018 09:50
--- NOTE | 2018-11-08 10:16 | IPNPDOC ---
Date Seen The patient was seen on 11/08/18. Progress Note Vascular Surgery Dr Massey HPI: 53-year-old male who presented to the ER with a chief complaint of right lower extremity pain. He states that his symptoms began a few months ago when he noticed a wound on the bottom of his right foot. He stated that he started to have some discharge from the foot and put a sock over it about 8 weeks ago. He did not removed the sock since then. He notes that the pain in his right lower extremity had worsened, and he started to notice discharge from the sock. According to records, the patient's sock had to be cut off of his right lower extremity as it was stuck to his skin tissue. His skin has been noted to be macerated from below the knee to the foot where he had several areas of drainage. An XR of the Foot revealed soft tissue swelling and lytic lesion involving the proximal phalanx of the fifth digit suspicious for osteomyelitis. The patient was admitted to the hospitalist, vascular surgery is consulted re foot wound. The pt states pain controlled. Has been OOB. No new concerns. PMHx: Cerebral palsy. Wheelchair bound. PSHX: Hernia repair, Multiple leg surgeries, Eye surgery PE: GEN: 53yoM. No acute distress. HEENT: Normocephalic, atraumatic. Moist mucous membranes. EXT: Bandage intact Rt foot. RLE There is no ultrasonographic evidence of deep venous thrombosis involving any of the visualized deep venous structures of the right thigh, as described above. There is severe leg edema. Electronically Signed by Remington Sanders DO 10/30/2018 12:35 P XR foot Soft tissue swelling and lytic lesion as described above suspicious for osteomyelitis. There are other findings and chronic changes as described above. Electronically Signed by Remington Sanders DO 10/30/2018 12:[address] No acute bony destructive lesion. No soft tissue gas seen. Diffuse subcutaneous fat layer edema and dermal thickening. 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 Electronically Signed by Lucas Clarke MD 10/31/2018 03:41 P BLE Art US History: Right lower extremity wound. Sonographic findings: Ankle brachial index on the right could not be obtained due to the patient's wound. On the left the FREDA is normal at 0.95. Mild plaquing is seen bilaterally. No high-grade stenosis is detected. Monophasic waveforms are observed in the common femoral and profunda femoral artery on the right. Monophasic wave form is also noted in the distal posterior tibial artery on the right. Wave forms are otherwise normal. Arterial Doppler velocity chart right lower extremity: CF A 130 cm/S Profunda 80 Proximal SFA 136 Mid SFA 136 Distal SFA 107 Popliteal 120 Optimal AT A 30 Tibioperoneal trunk 116 Proximal ROOM SERVICE FOOD SERVICE ATTENDANT 106 Distal ROOM SERVICE FOOD SERVICE ATTENDANT 47 Distal AT A 68 Arterial Doppler velocity chart left lower extremity: CF A 89 cm/S Profunda 70 Proximal SFA 85 Mid SFA 86 Distal SFA 98 Popliteal 103 Proximal AT A 60 Tibioperoneal trunk 73 Proximal ROOM SERVICE FOOD SERVICE ATTENDANT 55 Distal ROOM SERVICE FOOD SERVICE ATTENDANT 58 Distal AT A 61 Electronically Signed by Lucas Clarke MD 11/01/2018 12:22 P Angiogram 11/04/18 Dr Massey. No intervention. A&P: 1. RLE wound/cellulitis/possible OM. US neg for DVT. XR foot possible OM. BC x 2 neg. WC Organism 1 PROTEUS MIRABILIS QUANTITY OF GROWTH MODERATE Organism 2 CORYNEBACTERIUM SPECIES QUANTITY OF GROWTH MODERATE IV Vanco/Rocephin as per Medicine Svc. RLE angiogram 11/03/[address] Massey no intervention necessary. S/P Rt foot debridement as per Dr Massey 11/03/18. S/P Rt TMA 11/04/[address] Massey. No report available. Plan as per Dr Massey 11/08/18 is for TMA revision and flap closure 11/10/18. Wound care with Dakins 1/4% wet to dry dressing Q8hrs. 2. DVT prophylaxis. Lovenox. VS, I&O, 24H, Fishbone Vital Signs/I&O Vital Signs Date Time Temp Pulse Resp B/P (MAP) Pulse Ox O2 Delivery O2 Flow Rate FiO2 11/08/18 06:54 16 11/08/18 06:06 97.7 84 120/76 (91) 96 11/06/18 14:00 1.0 I&O- Last 24 Hours up to 6 AM 11/08/18 06:00 Intake Total 1200 ml Output Total 1100 ml Balance 100 ml Laboratory Data Microbiology Microbiology 10/30/18 Blood Culture - Final, Complete NO GROWTH AFTER 5 DAYS 10/30/18 Blood Culture - Final, Complete NO GROWTH AFTER 5 DAYS 10/30/18 Gram Stain - Final, Complete 10/30/18 Wound Culture - Final, Complete Proteus Mirabilis Staphylococcus Sp Coag Neg Globicatella Sanguinis Corynebacterium Species Nidia Lee Nov 08, 2018 10:08
--- NOTE | 2018-11-08 13:31 | IPNPDOC ---
Text Note Date of Service The patient was seen on 11/08/18. NOTE Subjective: Patient sitting in wheelchair. Denies any pain. Patient inquiring to speak with Dr. Massey Objective: Vitals as below General: pleasant NAD AAOx3 Eyes - PERRLA, EOM intact Neck - No noticeable or palpable swelling, redness or rash around throat or on face Lymph Nodes - No lymphadenopathy Cardiovascular - RRR no m/r/g, no JVD, no carotid bruits Lungs - Clear to auscltation, no use of acessory muscles, no crackles or wheezes. T Ext: no edema; right foot bandage intact; venous stasis to pretib - unchanged A/P: #Severe RLE Cellulitis, Right Foot Proximal Phalanx of the 5th Digit with Osteomyelitis -continue with vancomycin and monitor for toxicity and rocephin. -Continue with IV antibiotics until ready for discharge as recommended by surgery, then change to bactrim po. -Debridement of wound 11/03/18 with extensive ulcerations,transmetatarsal amputation on 11/05/18 -surgery recs noted: Plan as per Dr Massey 11/08/18 is for TMA revision and flap closure 11/10/18. # Bilateral rotator cuff strain (left more than right) - sanjeev hall prn, -PT/OT consult #Hx of Cerebral Palsy - stable # Non-adherence to medical therapy prior to admission - Complicating care Disposition:pending surgery clearance DVt PPX- Lovenox VS,Fishbone, I+O VS, Fishbone, I+O Vital Signs Date Time Temp Pulse Resp B/P (MAP) Pulse Ox O2 Delivery O2 Flow Rate FiO2 11/08/18 06:54 16 11/08/18 06:06 97.7 84 120/76 (91) 96 11/06/18 14:00 1.0 I&O- Last 24 Hours up to 6 AM 11/08/18 06:00 Intake Total 1200 ml Output Total 1100 ml Balance 100 ml HILARY FRANKEL MD Nov 08, 2018 13:31
[2018-11-08] MEDS: cefTRIAXone SOD 2 GM in D5W MINI-BAG PLUS 50 ML IV SCH (17:45)
[2018-11-08 20:47] VITALS: BP 133/80
[2018-11-09] MEDS: PERCOCET 5MG/325MG TAB PO PRN ×3 (02:43→20:42)
[2018-11-09] MEDS: VANCOMYCIN HCL 750 MG, VIAL MATE ADAPTER 1 EACH in D5W 250 ML IV SCH ×2 (04:25→16:30)
[2018-11-09 05:38] LABS: HEMATOCRIT 38.4 % (42.0-52.0); HEMOGLOBIN 12.4 g/dl (13.5-17.5); MEAN CORPUSCULAR HEMOGLOBIN 27.7 pg (27.0-33.0); MEAN CORPUSCULAR HGB CONC 32.3 g/dl (32.0-36.5); MEAN CORPUSCULAR VOLUME 85.9 fl (80.0-96.0); PLATELET COUNT, AUTOMATED 289 10^3/uL (150-450); RED BLOOD COUNT 4.47 10^6/uL (4.30-6.10); WHITE BLOOD COUNT 9.1 10^3/uL (4.0-10.0)
[2018-11-09 05:45] VITALS: BP 132/75
[2018-11-09 06:00] LABS: BLOOD UREA NITROGEN 13 MG/DL (7-18); CALCIUM LEVEL 8.2 MG/DL (8.5-10.1); CARBON DIOXIDE LEVEL 29 MEQ/L (21-32); CHLORIDE LEVEL 102 MEQ/L (98-107); CREATININE FOR GFR 1.01 MG/DL (0.70-1.30); GLOMERULAR FILTRATION RATE > 60.0 (>56); GLUCOSE, FASTING 117 MG/DL (70-100); POTASSIUM SERUM 3.8 MEQ/L (3.5-5.1); SODIUM LEVEL 139 MEQ/L (136-145)
[2018-11-09] MEDS: ENOXAPARIN 40 MG/0.4 ML SYRINGE (J1650) SC SCH (09:44)
[2018-11-09] MEDS ORDERED: DAKIN'S 0.25% HALF-STRENGTH SOLN 480 ML TOP SCH (12:15)
--- NOTE | 2018-11-09 12:42 | IPNPDOC ---
Date Seen The patient was seen on 11/09/18. Progress Note Vascular Surgery Dr Massey HPI: 53-year-old male who presented to the ER with a chief complaint of right lower extremity pain. He states that his symptoms began a few months ago when he noticed a wound on the bottom of his right foot. He stated that he started to have some discharge from the foot and put a sock over it about 8 weeks ago. He did not removed the sock since then. He notes that the pain in his right lower extremity had worsened, and he started to notice discharge from the sock. According to records, the patient's sock had to be cut off of his right lower extremity as it was stuck to his skin tissue. His skin has been noted to be macerated from below the knee to the foot where he had several areas of drainage. An XR of the Foot revealed soft tissue swelling and lytic lesion involving the proximal phalanx of the fifth digit suspicious for osteomyelitis. The patient was admitted to the hospitalist, vascular surgery is consulted re foot wound. The pt states pain controlled. No new concerns. PMHx: Cerebral palsy. Wheelchair bound. PSHX: Hernia repair, Multiple leg surgeries, Eye surgery PE: GEN: 53yoM. No acute distress. HEENT: Normocephalic, atraumatic. Moist mucous membranes. EXT: Bandage intact Rt foot. This is removed today with dressing changed. Tissue appears pink, small amount of bleeding. RLE There is no ultrasonographic evidence of deep venous thrombosis involving any of the visualized deep venous structures of the right thigh, as described above. There is severe leg edema. Electronically Signed by Remington Sanders DO 10/30/2018 12:35 P XR foot Soft tissue swelling and lytic lesion as described above suspicious for osteomyelitis. There are other findings and chronic changes as described above. Electronically Signed by Remington Sanders DO 10/30/2018 12:[address] No acute bony destructive lesion. No soft tissue gas seen. Diffuse subcutaneous fat layer edema and dermal thickening. 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 Electronically Signed by Lucas Clarke MD 10/31/2018 03:41 P BLE Art US History: Right lower extremity wound. Sonographic findings: Ankle brachial index on the right could not be obtained due to the patient's wound. On the left the FREDA is normal at 0.95. Mild plaquing is seen bilaterally. No high-grade stenosis is detected. Monophasic waveforms are observed in the common femoral and profunda femoral artery on the right. Monophasic wave form is also noted in the distal posterior tibial artery on the right. Wave forms are otherwise normal. Arterial Doppler velocity chart right lower extremity: CF A 130 cm/S Profunda 80 Proximal SFA 136 Mid SFA 136 Distal SFA 107 Popliteal 120 Optimal AT A 30 Tibioperoneal trunk 116 Proximal MILLINERY DESIGNER 106 Distal MILLINERY DESIGNER 47 Distal AT A 68 Arterial Doppler velocity chart left lower extremity: CF A 89 cm/S Profunda 70 Proximal SFA 85 Mid SFA 86 Distal SFA 98 Popliteal 103 Proximal AT A 60 Tibioperoneal trunk 73 Proximal MILLINERY DESIGNER 55 Distal MILLINERY DESIGNER 58 Distal AT A 61 Electronically Signed by Lucas Clarke MD 11/01/2018 12:22 P Angiogram 11/04/18 Dr Massey. No intervention. A&P: 1. RLE wound/cellulitis/possible OM. US neg for DVT. XR foot possible OM. BC x 2 neg. WC Organism 1 PROTEUS MIRABILIS QUANTITY OF GROWTH MODERATE Organism 2 CORYNEBACTERIUM SPECIES QUANTITY OF GROWTH MODERATE IV Vanco/Rocephin as per Medicine Svc. RLE angiogram 11/03/[address] Massey no intervention necessary. S/P Rt foot debridement as per Dr Massey 11/03/18. S/P Rt TMA 11/04/[address] Massey. No report available. Plan as per Dr Massey 11/09/18 is for TMA completion procedure 11/10/18. I have reviewed this with the pt who verbalizes understanding and agreement. Wound care with Dakins 1/4% wet to dry dressing Q6hrs. 2. DVT prophylaxis. Lovenox. VS, I&O, 24H, Fishbone Vital Signs/I&O Vital Signs Date Time Temp Pulse Resp B/P (MAP) Pulse Ox O2 Delivery O2 Flow Rate FiO2 11/09/18 05:45 97.5 78 20 132/75 (94) 95 11/06/18 14:00 1.0 I&O- Last 24 Hours up to 6 AM 11/09/18 06:00 Intake Total 695 ml Output Total 200 ml Balance 495 ml Laboratory Data 24H LABS Laboratory Tests 2 11/09/18 05:09: Nucleated Red Blood Cells % (auto) 0.0, Anion Gap 8, Glomerular Filtration Rate > 60.0, Blood Urea Nitrogen 13, Creatinine 1.01, Sodium Level 139, Potassium Level 3.8, Chloride Level 102, Carbon Dioxide Level 29, Calcium Level 8.2L CBC/BMP Laboratory Tests 11/09/18 05:09 Red Blood Count 4.47, Mean Corpuscular Volume 85.9, Mean Corpuscular Hemoglobin 27.7, Mean Corpuscular Hemoglobin Concent 32.3, Red Cell Distribution Width 14.4, Calcium Level 8.2 L Microbiology Microbiology 10/30/18 Blood Culture - Final, Complete NO GROWTH AFTER 5 DAYS 10/30/18 Blood Culture - Final, Complete NO GROWTH AFTER 5 DAYS 10/30/18 Gram Stain - Final, Complete 10/30/18 Wound Culture - Final, Complete Proteus Mirabilis Staphylococcus Sp Coag Neg Globicatella Sanguinis Corynebacterium Species Nidia Lee Nov 09, 2018 12:42
--- NOTE | 2018-11-09 14:37 | IPNPDOC ---
Text Note Date of Service The patient was seen on 11/09/18. NOTE Subjective: Patient seen and examined at bedside. Denies any pain. Patient in quiring to speak with Dr. Massey again, said he did not speak with vascular yesterday. Objective: Vitals as below General: pleasant NAD AAOx3 Eyes - PERRLA, EOM intact Neck - No noticeable or palpable swelling, redness or rash around throat or on face Lymph Nodes - No lymphadenopathy Cardiovascular - RRR no m/r/g, no JVD, no carotid bruits Lungs - Clear to auscltation, no use of acessory muscles, no crackles or wheezes. T Ext: no edema; right foot bandage intact; venous stasis to pretib - unchanged A/P: #Severe RLE Cellulitis, Right Foot Proximal Phalanx of the 5th Digit with Osteomyelitis -continue with vancomycin and monitor for toxicity and rocephin. -Continue with IV antibiotics until ready for discharge as recommended by surgery, then change to bactrim po. -Debridement of wound 11/03/18 with extensive ulcerations,transmetatarsal amp utation on 11/05/18 -surgery recs noted: Plan as per Dr Massey 11/08/18 is for TMA revision and flap closure 11/10/18. # Bilateral rotator cuff strain (left more than right) - sanjeev hall prn, -PT/OT consult #Hx of Cerebral Palsy - stable # Non-adherence to medical therapy prior to admission - Complicating care Disposition:pending surgery clearance DVt PPX- Lovenox VS,Fishbone, I+O VS, Fishbone, I+O Laboratory Tests 11/09/18 05:09 Red Blood Count 4.47, Mean Corpuscular Volume 85.9, Mean Corpuscular Hemoglobin 27.7, Mean Corpuscular Hemoglobin Concent 32.3, Red Cell Distribution Width 14.4, Calcium Level 8.2 L Vital Signs Date Time Temp Pulse Resp B/P (MAP) Pulse Ox O2 Delivery O2 Flow Rate FiO2 11/09/18 05:45 97.5 78 20 132/75 (94) 95 11/06/18 14:00 1.0 l I&O- Last 24 Hours up to 6 AM 11/09/18 06:00 Intake Total 695 ml Output Total 200 ml Balance 495 ml HILARY FRANKEL MD Nov 09, 2018 14:37
[2018-11-09] MEDS: DAKIN'S 0.25% HALF-STRENGTH SOLN 480 ML TOP SCH ×3 (15:03→23:37)
--- NOTE | 2018-11-09 15:33 | PHACANCOPD ---
PHARMACY VANCOMYCIN DOSING Pt Demographics Demographics Patient Age:53 , Weight:70.500 , Gender: male Adjusted Body Weight Date: 10/31/18, Adjusted Body Weight: [71.48] Kg Events Past 24 Hours Events Past 24 Hours: NO: Dialysis, Diuretic Therapy, Change in CrCl, Fever, Elevation in WBC, Pending Diagnostics, Pending Procedures, Other Vancomycin Vancomycin indication: OSTEO Vancomycin Target Ranges: 15-20 mcg/ml Vancomycin Load Y/N: Yes Load Dose Date Time Vancomycin Load Dose: 2 Date: 10/30/18 Time: 1600 Vancomycin Dose Date: 11/01/18. Current Vancomycin Dose: [750MG IV Q12H] Intermittent Dosing?: No Labs Labs Item Value Date Time Kcl 10MEQ/100ML Swi (Krun) (Kcl 10MEQ/10 (PHA) Complete 10/30/18 1113 White Blood Count 8.6 10^3/uL 11/06/18 0629 White Blood Count 9.1 10^3/uL 11/09/18 0509 Creatinine 1.01 MG/DL 11/09/18 0509 C-Reactive Protein, Quantitative 2.04 MG/DL H 11/05/18 0602 C-Reactive Protein, Quantitative 1.57 MG/DL H 11/06/18 0629 C-Reactive Protein, Quantitative 1.74 MG/DL H 11/07/18 0603 Micro Microbiology 10/30/18 Blood Culture - Final, Complete NO GROWTH AFTER 5 DAYS 10/30/18 Blood Culture - Final, Complete NO GROWTH AFTER 5 DAYS 10/30/18 Gram Stain - Final, Complete 10/30/18 Wound Culture - Final, Complete Proteus Mirabilis Staphylococcus Sp Coag Neg Globicatella Sanguinis Corynebacterium Species Creatinine Clearance Date:10/31/18. Creatinine Clearance: [89ML/MIN]. Assessment and Plan Maintaining Current Dose?: Yes Reason for dose change: No Dose Change Pharmacist Note Pharmacist Note 11/09: Today is day 12 of treatment with Vancomycin. His trough resulted at 13.4 today, therefore we will continue Vancomycin 750mg IV q12h. We will continue to monitor and make adjustments as needed. Date: 11/06/18. Pharmacist note: Trough came back today @14.5mcg/ml @14:41. We will continue 750mg iv q12h. We will continue to monitor and adjust the dose as needed. Date: 11/04/18. Pharmacist note: Trough of 15.8 is within target range. Will continue current dosing. Will continue to monitor and make adjustments as needed. CARLOS OLSON [facility]ARMAC[facility] Nov 09, 2018 15:33
[2018-11-09] MEDS: cefTRIAXone SOD 2 GM in D5W MINI-BAG PLUS 50 ML IV SCH (18:23)
[2018-11-09] MEDS ORDERED: MORPHINE 4 MG/ML 1ML VIAL/SYRINGE (J2270) IV ONE (20:30)
[2018-11-09 22:00] VITALS: BP 142/87
[2018-11-10] MEDS: VANCOMYCIN HCL 750 MG, VIAL MATE ADAPTER 1 EACH in D5W 250 ML IV SCH ×2 (04:12→16:20)
[2018-11-10] MEDS: PERCOCET 5MG/325MG TAB PO PRN (04:12)
[2018-11-10] MEDS: DAKIN'S 0.25% HALF-STRENGTH SOLN 480 ML TOP SCH ×3 (05:52→17:52)
[2018-11-10 06:00] VITALS: BP 144/82
[2018-11-10 06:58] LABS: HEMATOCRIT 33.6 % (42.0-52.0); HEMOGLOBIN 10.8 g/dl (13.5-17.5); MEAN CORPUSCULAR HEMOGLOBIN 27.5 pg (27.0-33.0); MEAN CORPUSCULAR HGB CONC 32.1 g/dl (32.0-36.5); MEAN CORPUSCULAR VOLUME 85.5 fl (80.0-96.0); PLATELET COUNT, AUTOMATED 320 10^3/uL (150-450); RED BLOOD COUNT 3.93 10^6/uL (4.30-6.10); WHITE BLOOD COUNT 10.4 10^3/uL (4.0-10.0)
[2018-11-10] MEDS: ENOXAPARIN 40 MG/0.4 ML SYRINGE (J1650) SC SCH (09:00)
[2018-11-10 09:41] VITALS: BP 116/69
--- NOTE | 2018-11-10 10:14 | IPNPDOC ---
Date Seen The patient was seen on 11/10/18. Progress Note Vascular Surgery Dr Massey HPI: 53-year-old male who presented to the ER with a chief complaint of right lower extremity pain. He states that his symptoms began a few months ago when he noticed a wound on the bottom of his right foot. He stated that he started to have some discharge from the foot and put a sock over it about 8 weeks ago. He did not removed the sock since then. He notes that the pain in his right lower extremity had worsened, and he started to notice discharge from the sock. According to records, the patient's sock had to be cut off of his right lower extremity as it was stuck to his skin tissue. His skin has been noted to be macerated from below the knee to the foot where he had several areas of drainage. An XR of the Foot revealed soft tissue swelling and lytic lesion involving the proximal phalanx of the fifth digit suspicious for osteomyelitis. The patient was admitted to the hospitalist, vascular surgery is consulted re foot wound. The pt states pain controlled. No further bleeding from wound since last PM. PMHx: Cerebral palsy. Wheelchair bound. PSHX: Hernia repair, Multiple leg surgeries, Eye surgery PE: GEN: 53yoM. No acute distress. HEENT: Normocephalic, atraumatic. Moist mucous membranes. EXT: Bandage intact Rt foot. RLE There is no ultrasonographic evidence of deep venous thrombosis involving any of the visualized deep venous structures of the right thigh, as described above. There is severe leg edema. Electronically Signed by Remington Sanders DO 10/30/2018 12:35 P XR foot Soft tissue swelling and lytic lesion as described above suspicious for osteomyelitis. There are other findings and chronic changes as described above. Electronically Signed by Remington Sanders DO 10/30/2018 12:[address] No acute bony destructive lesion. No soft tissue gas seen. Diffuse subcutaneous fat layer edema and dermal thickening. 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 Electronically Signed by Lucas Clarke MD 10/31/2018 03:41 P BLE Art US History: Right lower extremity wound. Sonographic findings: Ankle brachial index on the right could not be obtained due to the patient's wound. On the left the FREDA is normal at 0.95. Mild plaquing is seen bilaterally. No high-grade stenosis is detected. Monophasic waveforms are observed in the common femoral and profunda femoral artery on the right. Monophasic wave form is also noted in the distal posterior tibial artery on the right. Wave forms are otherwise normal. Arterial Doppler velocity chart right lower extremity: CF A 130 cm/S Profunda 80 Proximal SFA 136 Mid SFA 136 Distal SFA 107 Popliteal 120 Optimal AT A 30 Tibioperoneal trunk 116 Proximal DOWELER 106 Distal DOWELER 47 Distal AT A 68 Arterial Doppler velocity chart left lower extremity: CF A 89 cm/S Profunda 70 Proximal SFA 85 Mid SFA 86 Distal SFA 98 Popliteal 103 Proximal AT A 60 Tibioperoneal trunk 73 Proximal DOWELER 55 Distal DOWELER 58 Distal AT A 61 Electronically Signed by Lucas Clarke MD 11/01/2018 12:22 P Angiogram 11/04/18 Dr Massey. No intervention. A&P: 1. RLE wound/cellulitis/possible OM. US neg for DVT. XR foot possible OM. BC x 2 neg. WC Organism 1 PROTEUS MIRABILIS QUANTITY OF GROWTH MODERATE Organism 2 CORYNEBACTERIUM SPECIES QUANTITY OF GROWTH MODERATE IV Vanco/Rocephin as per Medicine Svc. RLE angiogram 11/03/[address] Massey no intervention necessary. S/P Rt foot debridement as per Dr Massey 11/03/18. S/P Rt TMA 11/04/[address] Massey. No report available. Plan as per Dr Massey 11/10/18 is for TMA completion procedure 11/10/18. I have reviewed this with the pt who verbalizes understanding and agreement. Dry dressing in place. 2. DVT prophylaxis. Lovenox. VS, I&O, 24H, Fishbone Vital Signs/I&O Vital Signs Date Time Temp Pulse Resp B/P (MAP) Pulse Ox O2 Delivery O2 Flow Rate FiO2 11/10/18 09:41 96.8 90 19 116/69 (85) 94 11/06/18 14:00 1.0 I&O- Last 24 Hours up to 6 AM 11/10/18 05:59 Intake Total 1200 ml Balance 1200 ml Laboratory Data 24H LABS Laboratory Tests 2 11/09/18 14:46: Vancomycin Level Trough 13.4 11/10/18 06:40: Nucleated Red Blood Cells % (auto) 0.0 CBC/BMP Laboratory Tests 8/22/19 06:40 Red Blood Count 3.93 L, Mean Corpuscular Volume 85.5, Mean Corpuscular Hemoglobin 27.5, Mean Corpuscular Hemoglobin Concent 32.1, Red Cell Distribution Width 14.3 Nidia Lee Nov 10, 2018 10:14
[2018-11-10 14:00] VITALS: BP 123/68
--- NOTE | 2018-11-10 14:27 | IPNPDOC ---
Text Note Date of Service The patient was seen on 11/10/18. NOTE Subjective: Mr. Whitehead is scheduled for flap closure to his transmetatarsal amputation today. He is seen prior to going to the OR. He is quite anxious to go. He is not otherwise having remarkable discomfort. The patient has had cellulitis with osteomyelitis. Objective: Physical exam Vital signs are below General: Awake, alert, conversant HENT: Neck is supple with no adenopathy or thyromegaly. Oral mucosa is moist. Respiratory: He is clear to auscultation with no rhonchi, rales, wheezes or cough. Cardiovascular: Regular rate and rhythm with a normal S1 and S2 and no appreciable murmur. Abdomen: Soft, nontender, nondistended, bowel tones are present. Extremities: Right foot remains bandaged, there is no edema or discoloration Assessment/Plan: This is a 53 year-old male who has undergone transmetatarsal amputation to his right foot. Today, he is scheduled for flap closure. He has cellulitis and osteomyelitis involving the fifth toe. Organisms isolated included Proteus mirabilis and Corynebacterium. The patient remains on IV antibiotics in the form of Vanco and Rocephin. He does not have leukocytosis. He will hopefully be able to transition to oral antibiotics. We will continue to follow postop. VS,Marye, I+O VS, Marye, I+O Laboratory Tests 11/10/18 06:40 Red Blood Count 3.93 L, Mean Corpuscular Volume 85.5, Mean Corpuscular Hemoglobin 27.5, Mean Corpuscular Hemoglobin Concent 32.1, Red Cell Distribution Width 14.3 Vital Signs Date Time Temp Pulse Resp B/P (MAP) Pulse Ox O2 Delivery O2 Flow Rate FiO2 11/10/18 09:41 96.8 90 19 116/69 (85) 94 11/06/18 14:00 1.0 I&O- Last 24 Hours up to 6 AM 11/10/18 06:00 Intake Total 1200 ml Balance 1200 ml AUGIE REGALADO MD Nov 10, 2018 14:27
[2018-11-10] MEDS: cefTRIAXone SOD 2 GM in D5W MINI-BAG PLUS 50 ML IV SCH (17:52)
[2018-11-10 20:29] VITALS: BP 124/75
[2018-11-11] MEDS: VANCOMYCIN HCL 750 MG, VIAL MATE ADAPTER 1 EACH in D5W 250 ML IV SCH ×2 (04:20→16:42)
[2018-11-11 05:33] VITALS: BP 104/59
[2018-11-11] MEDS: DAKIN'S 0.25% HALF-STRENGTH SOLN 480 ML TOP SCH ×2 (06:00)
--- NOTE | 2018-11-11 10:07 | IPNPDOC ---
Date Seen The patient was seen on 11/11/18. Progress Note Vascular Surgery Dr Massey HPI: 53-year-old male who presented to the ER with a chief complaint of right lower extremity pain. He states that his symptoms began a few months ago when he noticed a wound on the bottom of his right foot. He stated that he started to have some discharge from the foot and put a sock over it about 8 weeks ago. He did not removed the sock since then. He notes that the pain in his right lower extremity had worsened, and he started to notice discharge from the sock. According to records, the patient's sock had to be cut off of his right lower extremity as it was stuck to his skin tissue. His skin has been noted to be macerated from below the knee to the foot where he had several areas of drainage. An XR of the Foot revealed soft tissue swelling and lytic lesion involving the proximal phalanx of the fifth digit suspicious for osteomyelitis. The patient was admitted to the hospitalist, vascular surgery is consulted re foot wound. The pt states pain controlled. No further bleeding from wound, dressing intact. PMHx: Cerebral palsy. Wheelchair bound. PSHX: Hernia repair, Multiple leg surgeries, Eye surgery PE: GEN: 53yoM. No acute distress. HEENT: Normocephalic, atraumatic. Moist mucous membranes. EXT: Bandage intact Rt foot. RLE There is no ultrasonographic evidence of deep venous thrombosis involving any of the visualized deep venous structures of the right thigh, as described above. There is severe leg edema. Electronically Signed by Remington Sanders DO 10/30/2018 12:35 P XR foot Soft tissue swelling and lytic lesion as described above suspicious for osteomyelitis. There are other findings and chronic changes as described above. Electronically Signed by Remington Sanders DO 10/30/2018 12:[address] No acute bony destructive lesion. No soft tissue gas seen. Diffuse subcutaneous fat layer edema and dermal thickening. 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 Electronically Signed by Lucas Clarke MD 10/31/2018 03:41 P BLE Art US History: Right lower extremity wound. Sonographic findings: Ankle brachial index on the right could not be obtained due to the patient's wound. On the left the FREDA is normal at 0.95. Mild plaquing is seen bilaterally. No high-grade stenosis is detected. Monophasic waveforms are observed in the common femoral and profunda femoral artery on the right. Monophasic wave form is also noted in the distal posterior tibial artery on the right. Wave forms are otherwise normal. Arterial Doppler velocity chart right lower extremity: CF A 130 cm/S Profunda 80 Proximal SFA 136 Mid SFA 136 Distal SFA 107 Popliteal 120 Optimal AT A 30 Tibioperoneal trunk 116 Proximal RECONDITIONING ASSOCIATE 106 Distal RECONDITIONING ASSOCIATE 47 Distal AT A 68 Arterial Doppler velocity chart left lower extremity: CF A 89 cm/S Profunda 70 Proximal SFA 85 Mid SFA 86 Distal SFA 98 Popliteal 103 Proximal AT A 60 Tibioperoneal trunk 73 Proximal RECONDITIONING ASSOCIATE 55 Distal RECONDITIONING ASSOCIATE 58 Distal AT A 61 Electronically Signed by Lucas Clarke MD 11/01/2018 12:22 P Angiogram 11/04/18 Dr Massey. No intervention. A&P: 1. RLE wound/cellulitis/possible OM. BC x 2 neg. WC PROTEUS MIRABILIS, CORYNEBACTERIUM IV Vanco/Rocephin as per Medicine Svc. RLE angiogram 11/03/[address] Massey no intervention necessary. S/P Rt foot debridement as per Dr Massey 11/03/18. S/P Rt TMA 11/04/[address] Massey. No report available. Plan as per Dr Massey 11/11/18 is for TMA completion procedure 11/11/18. I have reviewed this with the pt who verbalizes understanding and agreement. Dry dressing in place. 2. DVT prophylaxis. Lovenox. VS, I&O, 24H, Fishbone Vital Signs/I&O Vital Signs Date Time Temp Pulse Resp B/P (MAP) Pulse Ox O2 Delivery O2 Flow Rate FiO2 11/11/18 05:33 98.2 91 20 104/59 (74) 95 11/06/18 14:00 1.0 I&O- Last 24 Hours up to 6 AM 11/11/18 06:00 Intake Total 600 ml Output Total 1000 ml Balance -400 ml Laboratory Data 24H LABS Laboratory Tests 2 11/11/18 09:31: CBC/BMP Nidia Lee Nov 11, 2018 10:07
[2018-11-11 10:16] LABS: BLOOD UREA NITROGEN 12 MG/DL (7-18); CALCIUM LEVEL 8.2 MG/DL (8.5-10.1); CARBON DIOXIDE LEVEL 29 MEQ/L (21-32); CHLORIDE LEVEL 100 MEQ/L (98-107); CREATININE FOR GFR 0.98 MG/DL (0.70-1.30); GLOMERULAR FILTRATION RATE > 60.0 (>56); GLUCOSE, FASTING 96 MG/DL (70-100); POTASSIUM SERUM 3.5 MEQ/L (3.5-5.1); SODIUM LEVEL 136 MEQ/L (136-145)
[2018-11-11] MEDS: ENOXAPARIN 40 MG/0.4 ML SYRINGE (J1650) SC SCH (11:52)
[2018-11-11] MEDS ORDERED: MIDAZOLAM INJ 2 MG/2 ML VIAL (J2250) As Ordered ONE (14:02)
[2018-11-11] MEDS ORDERED: fentaNYL 100 MCG/2 ML INJECTION (J3010) As Ordered ONE ×2 (14:02→14:37)
[2018-11-11] MEDS ORDERED: BUPIVACAINE HCL 0.5% 30 ML VIAL As Ordered ONE (14:14)
[2018-11-11] MEDS ORDERED: LIDOCAINE 2% MDV 20 ML VIAL As Ordered ONE (14:16)
[2018-11-11] MEDS ORDERED: PROPOFOL 200 MG/20 ML VIAL As Ordered ONE (14:22)
[2018-11-11] MEDS ORDERED: LIDOCAINE 2% INJ 100 MG/5 ML SDV (FOR ANES.) As Ordered ONE (14:22)
[2018-11-11] MEDS ORDERED: PROMETHAZINE INJ 25 MG/ML VIAL (J2550) IV PRN ×2 (15:15→16:45)
[2018-11-11] MEDS ORDERED: fentaNYL 100 MCG/2 ML INJECTION (J3010) IV PRN ×2 (15:15→16:45)
[2018-11-11] MEDS ORDERED: LR 1,000 ML IV SCH ×2 (15:15→16:45)
[2018-11-11] MEDS ORDERED: PERCOCET 5MG/325MG TAB PO PRN ×2 (15:15→16:45)
[2018-11-11] MEDS ORDERED: METOCLOPRAMIDE INJ 10MG/2ML VIAL (J2765) IV PRN ×2 (15:15→16:45)
[2018-11-11] MEDS ORDERED: ONDANSETRON 4MG/2ML VIAL (J2405) IV PRN ×2 (15:15→16:45)
[2018-11-11 15:50] VITALS: BP 156/75
[2018-11-11 16:34] VITALS: BP 138/52
[2018-11-11 17:30] VITALS: BP 135/60
--- NOTE | 2018-11-11 18:17 | IPNPDOC ---
Text Note Date of Service The patient was seen on 11/11/18. NOTE Mr. Whitehead is seen postoperatively after undergoing flap closure to his right transmetatarsal amputation. He does not have any discomfort or pain at this time. Physical exam Vital signs are below General: Awake, alert, conversant HENT: Neck is supple with no adenopathy or thyromegaly. Oral mucosa is moist, patient has moderately poor dentition Respiratory: He is clear to auscultation with no rhonchi, rales, wheezes or cough. Cardiovascular: Regular rate and rhythm with a normal S1 and S2 and no appreciable murmur. Abdomen: Soft, nontender, nondistended, bowel tones are present. Extremities: Patient has new compression dressing to the region of his right lower leg and foot, there is no drainage or bleeding Assessment/Plan: This is a 53 year-old male who has undergone transmetatarsal amputation to his right foot. He has now undergone flap closure He has cellulitis and osteomyelitis involving the fifth toe. Organisms isolated included Proteus mirabilis and Corynebacterium. The patient remains on IV antibiotics in the form of Vanco and Rocephin. He does not have leukocytosis. He will hopefully be able to transition to oral antibiotics. We will continue to follow postop. VS,Jaidenbone, I+O VS, Jaidenbone, I+O Laboratory Tests 11/11/18 09:31 Calcium Level 8.2 L Vital Signs Date Time Temp Pulse Resp B/P (MAP) Pulse Ox O2 Delivery O2 Flow Rate FiO2 11/11/18 15:50 98.2 84 16 156/75 (102) 97 11/11/18 15:15 10 I&O- Last 24 Hours up to 6 AM 11/11/18 06:00 Intake Total 600 ml Output Total 1000 ml Balance -400 ml AUGIE REGALADO MD Nov 11, 2018 18:17
[2018-11-11 18:30] VITALS: BP 137/71
[2018-11-11] MEDS: cefTRIAXone SOD 2 GM in D5W MINI-BAG PLUS 50 ML IV SCH (18:40)
[2018-11-11 20:28] VITALS: BP 126/72
[2018-11-12 02:15] VITALS: BP 127/77
[2018-11-12] MEDS: VANCOMYCIN HCL 750 MG, VIAL MATE ADAPTER 1 EACH in D5W 250 ML IV SCH ×2 (04:17→15:26)
[2018-11-12 05:42] VITALS: BP 154/85
[2018-11-12 08:58] LABS: CLOSTRIDIUM DIFFICILE PCR NEGATIVE (NEGATIVE)
[2018-11-12] MEDS: ENOXAPARIN 40 MG/0.4 ML SYRINGE (J1650) SC SCH (09:15)
[2018-11-12 10:00] VITALS: BP 138/72
[2018-11-12] MEDS ORDERED: LOPERAMIDE 2 MG CAP PO ONE (10:00)
[2018-11-12] MEDS: PERCOCET 5MG/325MG TAB PO PRN ×2 (10:20→16:41)
--- NOTE | 2018-11-12 11:07 | IPNPDOC ---
Text Note Date of Service The patient was seen on 11/12/18. NOTE SUBJECTIVE: Mr. Whitehead is postop day #1 from flap closure to his transmetatarsal amputation of his right foot. He is noting remarkable pain and throbbing. He has also had diarrhea. He reports bowel movements such that he has been incontinent. He states he is waiting for results of his C. difficile studies before he can have any pain medicine. OBJECTIVE: See vital signs below General: Awake, alert, conversant HENT: Neck is supple with no adenopathy or thyromegaly. Oral mucosa is moist, patient has moderately poor dentition Respiratory: He is clear to auscultation with no rhonchi, rales, wheezes or cough. Cardiovascular: Regular rate and rhythm with a normal S1 and S2 and no appreciable murmur. Abdomen: Soft, nontender, nondistended, bowel tones are present, he is not currently incontinent of stool Extremities: Patient has new compression dressing to the region of his right lower leg and foot, there is no drainage or bleeding, I do not elicit pain to palpation ASSESSMENT/PLAN: This is a 53-year-old male who is undergone debridement with concern for osteomyelitis involving his right fifth toe. He has since undergone transmetatarsal amputation and now flap closure. Organisms isolated included Proteus mirabilis and sisi bacterium and he is on IV antibiotics in the form of vancomycin and Rocephin. He has Percocet available for pain control. He does not have leukocytosis or fever. We are hopeful that he will be able to transition to oral antibiotics and proceed with rehabilitation. The patient reports multiple bouts of diarrhea; at least 5. He has not had any blood with his stools. He has had incontinence. Patient's stool studies were s ent and they are negative for C. difficile. Patient may have agent such as Imodium for diarrhea control. VS,Fishbone, I+O VS, Fishbone, I+O Vital Signs Date Time Temp Pulse Resp B/P (MAP) Pulse Ox O2 Delivery O2 Flow Rate FiO2 11/12/18 10:20 18 11/12/18 05:42 96.8 108 154/85 (108) 95 11/11/18 15:15 10 I&O- Last 24 Hours up to 6 AM 11/12/18 06:00 Intake Total 2055 ml Output Total 1340 ml Balance 715 ml AUGIE REGALADO MD Nov 12, 2018 11:07
[2018-11-12 14:00] VITALS: BP 125/67
[2018-11-12] MEDS: cefTRIAXone SOD 2 GM in D5W MINI-BAG PLUS 50 ML IV SCH (17:54)
[2018-11-12 18:00] VITALS: BP 117/63
[2018-11-12 22:00] VITALS: BP 123/59
[2018-11-12] MEDS: CALCIUM CARBONATE 500 MG CHEW U/D PO PRN (22:14)
[2018-11-13] MEDS: PERCOCET 5MG/325MG TAB PO PRN (01:13)
[2018-11-13] MEDS: CALCIUM CARBONATE 500 MG CHEW U/D PO PRN ×3 (02:52→20:36)
[2018-11-13] MEDS: VANCOMYCIN HCL 750 MG, VIAL MATE ADAPTER 1 EACH in D5W 250 ML IV SCH ×2 (04:19→15:29)
[2018-11-13 06:00] VITALS: BP 120/62
[2018-11-13] MEDS: ENOXAPARIN 40 MG/0.4 ML SYRINGE (J1650) SC SCH (08:43)
--- NOTE | 2018-11-13 12:34 | IPNPDOC ---
Text Note Date of Service The patient was seen on 11/13/18. NOTE SUBJECTIVE: Mr. Whitehead is postop day #2 from flap closure to his transmetatarsal amputation of his right foot. He is reporting good pain control with a pain level at 2. Previous diarrhea appears to have resolved. OBJECTIVE: See vital signs below General: Awake, alert, conversant HENT: Neck is supple with no adenopathy or thyromegaly. Oral mucosa is moist, patient has moderately poor dentition Respiratory: He is clear to auscultation with no rhonchi, rales, wheezes or cough. Cardiovascular: Regular rate and rhythm with a normal S1 and S2 and no appreciable murmur. Abdomen: Soft, nontender, nondistended, bowel tones are present, he is not currently incontinent of stool Extremities: Patient has new compression dressing to the region of his right lower leg and foot, there is no drainage or bleeding, I do not elicit pain to palpation Culture review: Proteus mirabilis, coag-negative staph that is oxacillin sensitive, Globicatella sanguinis, Corynebacterium ASSESSMENT/PLAN: This is a 53-year-old male who is undergone debridement with concern for osteomyelitis involving his right fifth toe. He has since undergone transmetatarsal amputation and now flap closure. Organisms isolated included Proteus mirabilis and Corynebacterium initially. Additionally Globicatella sanguinis and coag-negative staph are reported. He has been on IV antibiotics in the form of vancomycin and Rocephin; we can de-escalate therapy. He has Percocet available for pain control. He does not have leukocytosis or fever. We are hopeful that he will be able to transition to oral antibiotics and proceed with rehabilitation. He is wanting to be more mobile with his wheelchair now. The patient had had diarrhea and was ruled out for C. difficile colitis. It has resolved. VS,Fishbone, I+O VS, Fishbone, I+O Vital Signs Date Time Temp Pulse Resp B/P (MAP) Pulse Ox O2 Delivery O2 Flow Rate FiO2 11/13/18 06:00 98.2 92 18 120/62 (81) 96 11/11/18 15:15 10 I&O- Last 24 Hours up to 6 AM 11/13/18 06:00 Intake Total 2585 ml Output Total 1325 ml Balance 1260 ml AUGIE REGALADO MD Nov 13, 2018 12:34
[2018-11-13 14:00] VITALS: BP 138/75
[2018-11-13] MEDS: ONDANSETRON 4MG/2ML VIAL (J2405) IV PRN ×2 (14:05→20:36)
[2018-11-13] MEDS: cefTRIAXone SOD 2 GM in D5W MINI-BAG PLUS 50 ML IV SCH (18:02)
[2018-11-13 20:44] VITALS: BP 134/77
[2018-11-13] MEDS ORDERED: ACETAMINOPHEN 500 MG TAB PO PRN (21:00)
[2018-11-13] MEDS: SUCRALFATE 1 GM TAB PO SCH (23:10)
[2018-11-13 23:30] LABS: AMYLASE 51 U/L (25-115); LIPASE 107 U/L (73-393)
[2018-11-14] MEDS ORDERED: PANTOPRAZOLE 40MG INJ (PROTONIX) (C9113) IV SCH
[2018-11-14] MEDS: VANCOMYCIN HCL 750 MG, VIAL MATE ADAPTER 1 EACH in D5W 250 ML IV SCH (04:12)
[2018-11-14 05:00] VITALS: BP 143/53
[2018-11-14] MEDS: SUCRALFATE 1 GM TAB PO SCH (05:04)
[2018-11-14 06:08] LABS: BASO % 0.1 % (0.0-1.0); EOS # 0.8 10^3/uL (0.0-0.50); EOS % 10.9 % (0.0-3.0); HEMATOCRIT 26.4 % (42.0-52.0); HEMOGLOBIN 8.6 g/dl (13.5-17.5); LYMPH # 0.8 10^3/uL (1.5-4.5); LYMPH % 11.5 % (24.0-44.0); MEAN CORPUSCULAR HEMOGLOBIN 27.4 pg (27.0-33.0); MEAN CORPUSCULAR HGB CONC 32.6 g/dl (32.0-36.5); MEAN CORPUSCULAR VOLUME 84.1 fl (80.0-96.0); MONO # 0.6 10^3/uL (0.0-0.8); NEUTROPHILS # 4.9 10^3/uL (1.8-7.7); NEUTROPHILS % 68.2 % (36.0-66.0); PLATELET COUNT, AUTOMATED 278 10^3/uL (150-450); RED BLOOD COUNT 3.14 10^6/uL (4.30-6.10); WHITE BLOOD COUNT 7.1 10^3/uL (4.0-10.0)
[2018-11-14 06:46] LABS: BLOOD UREA NITROGEN 8 MG/DL (7-18); CALCIUM LEVEL 7.9 MG/DL (8.5-10.1); CARBON DIOXIDE LEVEL 32 MEQ/L (21-32); CHLORIDE LEVEL 98 MEQ/L (98-107); CREATININE FOR GFR 1.22 MG/DL (0.70-1.30); GLOMERULAR FILTRATION RATE > 60.0 (>56); GLUCOSE, FASTING 128 MG/DL (70-100); POTASSIUM SERUM 2.8 MEQ/L (3.5-5.1); SODIUM LEVEL 135 MEQ/L (136-145)
[2018-11-14] MEDS: KCL 10MEQ/100ML SWI (KRUN) 10 MEQ in APPROPRIATE DILUENT 1 EA IV SCH ×2 (06:59→08:30)
[2018-11-14] MEDS ORDERED: POTASSIUM CHLORIDE 10 MEQ SR TABLET PO ONE (07:00)
[2018-11-14] MEDS: ENOXAPARIN 40 MG/0.4 ML SYRINGE (J1650) SC SCH (08:29)
[2018-11-14] MEDS ORDERED: PERCOCET PO ×2 (10:51)
[2018-11-14] MEDS ORDERED: PROTPAK PO (10:51)
[2018-11-14] MEDS ORDERED: AUGM875T28 PO (10:51)
[2018-11-14] MEDS ORDERED: SUCR1TA PO (10:51)
[2018-11-14] MEDS ORDERED: ACET-683 PO (10:51)
--- NOTE | 2018-11-14 13:44 | DS.PDOC ---
Discharge Summary General Date of Admission Oct 30, 2018 at 12:18 Date of Discharge 11/14/18 Discharge Summary PROCEDURES PERFORMED DURING STAY: None. ADMITTING DIAGNOSES: 1. Osteomyelitis. DISCHARGE DIAGNOSES: 1. Osteomyelitis, transmetatarsal amputation. COMPLICATIONS/CHIEF COMPLAINT: Osteomyelitis Of 5TH Toe Of Right Foot. HISTORY OF PRESENT ILLNESS: 53-year-old male with past medical history of cerebral palsy who is wheelchair bound presented to the ER with a chief complaint of right lower extremity pain. Of note, the patient states that he has not followed with a physician for over 5 years, and does not take any medications regularly. He states that his symptoms began a few months ago when he noticed a wound on the bottom of his right foot. He stated that he started to have some discharge from the foot and put a sock over it about 8 weeks ago. He has not removed the sock since then. He notes that the pain in his right lower extremity had worsened, and he started to notice discharge from the sock. He denies any other acute complaints of fevers, chills, chest pain, palpitations, abdominal pain, or any nausea/vomiting/diarrhea.. HOSPITAL COURSE: This is a 53-year-old male who is undergone debridement with concern for osteomyelitis involving his right fifth toe. He has since undergone transmetatarsal amputation and now flap closure. Organisms isolated included Proteus mirabilis and Corynebacterium initially. Additionally Globicatella sanguinis and coag-negative staph are reported. He has been on IV antibiotics in the form of vancomycin and Rocephin; we can de-escalate therapy. He has Percocet available for pain control. He does not have leukocytosis or fever. We are hopeful that he will be able to transition to oral antibiotics and proceed with rehabilitation. He is wanting to be more mobile with his wheelchair now. DISCHARGE MEDICATIONS: Please see below. ALLERGIES: Please see below. PHYSICAL EXAMINATION ON DISCHARGE: VITAL SIGNS: Please see below. GENERAL: Within normal limits HEENT: [PERRLA NECK: Supple CARDIOVASCULAR EXAMINATION: S1, S2, regular RESPIRATORY EXAMINATION: Clear to A&P ABDOMINAL EXAMINATION: Benign EXTREMITIES: Status post transmetatarsal surgery dressing SKIN: Normal NEUROLOGICAL EXAMINATION: . No focal motor sensory deficit PSYCHIATRIC EXAMINATION: Normal LABORATORY DATA: Please see below. IMAGING: CT Rt Calf:CT findings: There is diffuse dermal thickening and diffuse subcutaneous edema throughout the right calf. There is no soft tissue gas. There are some dystrophic soft-tissue calcifications in the subcutaneous layer anteromedially. There is diffuse moderate fatty involution of the calf musculature suggesting denervation myopathy. There is a metallic screw in the proximal tibia. There is no bony destructive lesion. Impression: No acute bony destructive lesion. No soft tissue gas seen. Diffuse subcutaneous fat layer edema and dermal thickening. 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 PROGNOSIS: Good ACTIVITY: As tolerated. DIET: As tolerated DISCHARGE PLAN: Follow with PCP in one week DISPOSITION: [facility]. DISCHARGE INSTRUCTIONS: 1. As per discharge instructions. ITEMS TO FOLLOWUP ON ON OUTPATIENT: 1. Lobe with PCP in one week. DISCHARGE CONDITION: Stable. TIME SPENT ON DISCHARGE: 40 minutes. Vital Signs/I&Os Vital Signs Date Time Temp Pulse Resp B/P (MAP) Pulse Ox O2 Delivery O2 Flow Rate FiO2 11/14/18 05:02 98.1 11/14/18 05:00 96 18 143/53 (83) 95 11/11/18 15:15 10 I&O- Last 24 Hours up to 6 AM 11/14/18 05:59 Intake Total 1260 ml Output Total 1975 ml Balance -715 ml Laboratory Data Labs 24H Laboratory Tests 2 11/13/18 23:02: Amylase Level 51, Lipase 107 11/14/18 05:51: Immature Granulocyte % (Auto) 1.3, White Blood Count 7.1, Red Blood Count 3.14L, Hemoglobin 8.6L, Hematocrit 26.4L, Mean Corpuscular Volume 84.1, Mean Corpuscular Hemoglobin 27.4, Mean Corpuscular Hemoglobin Concent 32.6, Red Cell Distribution Width 14.4, Platelet Count 278, Neutrophils (%) (Auto) 68.2H, Lymphocytes (%) (Auto) 11.5L, Monocytes (%) (Auto) 8.0H, Eosinophils (%) (Auto) 10.9H, Basophils (%) (Auto) 0.1, Neutrophils # (Auto) 4.9, Lymphocytes # (Auto) 0.8L, Monocytes # (Auto) 0.6, Eosinophils # (Auto) 0.8H, Basophils # (Auto) 0.0, Nucleated Red Blood Cells % (auto) 0.0, Anion Gap 5L, Glomerular Filtration Rate > 60.0, Blood Urea Nitrogen 8, Creatinine 1.22, Sodium Level 135L, Potassium Level 2.8*L, Chloride Level 98, Carbon Dioxide Level 32, Calcium Level 7.9L, C-Reactive Protein, Quantitative 11.60H CBC/BMP Laboratory Tests 11/14/18 05:51 Red Blood Count 3.14 L, Mean Corpuscular Volume 84.1, Mean Corpuscular Hemoglobin 27.4, Mean Corpuscular Hemoglobin Concent 32.6, Red Cell Distribution Width 14.4, Neutrophils (%) (Auto) 68.2 H, Lymphocytes (%) (Auto) 11.5 L, Monoc ytes (%) (Auto) 8.0 H, Eosinophils (%) (Auto) 10.9 H, Basophils (%) (Auto) 0.1, Neutrophils # (Auto) 4.9, Lymphocytes # (Auto) 0.8 L, Monocytes # (Auto) 0.6, Eosinophils # (Auto) 0.8 H, Basophils # (Auto) 0.0, Calcium Level 7.9 L Discharge Medications Scheduled Amoxicillin/Potassium Clav (Augmentin 875-125 Tablet) 1 Each Tablet, 1 TAB PO BID Pantoprazole Sodium (Protonix) 40 Mg Granpkt.dr, 40 MG PO DAILY Sucralfate (Sucralfate) 1 Gm Tablet, 1 GM PO Q6H Scheduled PRN Acetaminophen (Acetaminophen) 500 Mg Tablet, 1,000 MG PO Q12HP PRN for PAIN / FEVER Oxycodone/Acetaminophen (Oxycodone-Acetaminophen 5-325) 1 Each Tablet, 1 TAB PO Q4HP PRN for MILD/MODERATE PAIN (PS 1-7) Oxycodone/Acetaminophen (Oxycodone-Acetaminophen 5-325) 1 Each Tablet, 2 TAB PO Q6HP PRN for SEVERE PAIN (PS 8-10) Allergies Coded Allergies: naproxen (Verified Allergy, Unknown, SOB, 10/30/18) RAFAELA PIKE MD Nov 14, 2018 13:44
--- NOTE | 2018-11-23 07:40 | RO ---
DATE OF PROCEDURE: 11/11/2018 ATTENDING SURGEON: Dr. Alicja Massey WARRANTY ADMINISTRATOR: None. PREOPERATIVE DIAGNOSIS: Right foot gangrene. POSTOPERATIVE DIAGNOSIS: Right foot gangrene. PROCEDURE: Right completion transmetatarsal amputation. INDICATION: The patient is a 53-year-old male who has previously undergone amputation in guillotine fashion of all his toes due to ischemia and gangrene. The patient will now undergo a completion right transmetatarsal amputation. Risks, benefits and alternative treatment options were discussed with the patient. ANESTHESIA: Ankle block plus local MAC. ESTIMATED BLOOD LOSS: 40. IV FLUID: 400 mL. SPECIMEN: Metatarsal heads one through five of the right foot. PROCEDURE: The patient was taken to the operating room and placed supine on the operating room table and then prepped and draped in a standard surgical fashion. The posterior flap was created in the right foot with the metatarsal heads being freed of surrounding tissue and then transected with a bone cutter. There was good perfusion of the flap posteriorly and anteriorly and the flap was approximated using #2-0 nylon suture in interrupted fashion with the skin being closed using trey. Dressings were then applied. The patient tolerated the procedure well. All instrument, sponge and needle counts were correct at the end of the case. There were no complications. Dr. Massey was present for and directed the entire case. The patient was transferred to the holding area and subsequently to the floor in stable condition.
--- NOTE | 2018-11-25 19:51 | RO ---
DATE OF PROCEDURE: 11/06/2018 ATTENDING SURGEON: Dr. Mi Massey ISOTOPE TECHNICIAN: None. PREOPERATIVE DIAGNOSES: Right foot gangrene and toe ulceration, right lower extremity cellulitis, right lower extremity lymphedema, right lower extremity venous valvular insufficiency. POSTOPERATIVE DIAGNOSES Right foot gangrene and toe ulceration, right lower extremity cellulitis, right lower extremity lymphedema, right lower extremity venous valvular insufficiency. OPERATIVE PROCEDURE Right toe amputation in guillotine fashion at the metatarsophalangeal joint space of toes one through five INDICATION The patient is a 53-year-old male with gangrene of the toes on the right foot and cellulitis who was admitted and underwent antibiotic treatment and angiography showing no intervention required and now requires removal of the infected gangrenous toes. The patient will undergo a guillotine amputation to allow for resolution of the cellulitis and attempts at limiting the operation to a right transmetatarsal amputation. ANESTHESIA: Local MAC. ESTIMATED BLOOD LOSS: 25 mL IV FLUIDS: 200 mL SPECIMEN: Right toes one through five. DESCRIPTION OF PROCEDURE The patient was taken to the operating room, placed supine on the operating room table and then prepped and draped in a standard surgical fashion. The incision was made at the base of the toes with a scalpel which was used to transect through the joint space of the metatarsal phalangeal joint space with removal of all the nonviable toes and tissue. Wet-to-dry dressings were applied. The patient tolerated the procedure well. All instrument, sponge and needle counts were correct at the end the case. There were no complications. Dr. Massey was present for and directed the entire case. The patient was transferred to the recovery room awake, alert, extubated and in stable condition.
== END 2018-11-14 12:05 | DRG 475 ==
LOC: M ED 09:43 → M ED INP 12:18 → M MS5PR 17:20
PROVIDERS: ADMIT Internal Medicine; ATTEND Internal Medicine
PROC: B40DYZZ Plain Radiography of Aorta and Bilateral Lower Extremity Arteries using Other Contrast (ICD-10-PCS; 2018-11-03)
PROC: 0KBV0ZZ Excision of Right Foot Muscle, Open Approach (ICD-10-PCS; principal; 2018-11-03 08:30)
PROC: 0Y6P0Z0 Detachment at Right 1st Toe, Complete, Open Approach (ICD-10-PCS; 2018-11-06)
PROC: 0Y6X0Z0 Detachment at Right 5th Toe, Complete, Open Approach (ICD-10-PCS; 2018-11-06)
PROC: 0Y6V0Z0 Detachment at Right 4th Toe, Complete, Open Approach (ICD-10-PCS; 2018-11-06)
PROC: 0Y6T0Z0 Detachment at Right 3rd Toe, Complete, Open Approach (ICD-10-PCS; 2018-11-06)
PROC: 0Y6R0Z0 Detachment at Right 2nd Toe, Complete, Open Approach (ICD-10-PCS; 2018-11-06)
PROC: 0Y6M0Z9 Detachment at Right Foot, Partial 1st Ray, Open Approach (ICD-10-PCS; 2018-11-11)
PROC: 0Y6M0ZB Detachment at Right Foot, Partial 2nd Ray, Open Approach (ICD-10-PCS; 2018-11-11)
PROC: 0Y6M0ZC Detachment at Right Foot, Partial 3rd Ray, Open Approach (ICD-10-PCS; 2018-11-11)
PROC: 0Y6M0ZD Detachment at Right Foot, Partial 4th Ray, Open Approach (ICD-10-PCS; 2018-11-11)
PROC: 0Y6M0ZF Detachment at Right Foot, Partial 5th Ray, Open Approach (ICD-10-PCS; 2018-11-11)
DX: M86.171 Other acute osteomyelitis, right ankle and foot (principal); L03.115 Cellulitis of right lower limb; I96 Gangrene, not elsewhere classified; G80.9 Cerebral palsy, unspecified; S46.012A Strain of muscle(s) and tendon(s) of the rotator cuff of left shoulder, initial encounter; S46.011A Strain of muscle(s) and tendon(s) of the rotator cuff of right shoulder, initial encounter; B96.4 Proteus (mirabilis) (morganii) as the cause of diseases classified elsewhere; X58.XXXA Exposure to other specified factors, initial encounter; Y92.9 Unspecified place or not applicable; I73.89 Other specified peripheral vascular diseases; L97.519 Non-pressure chronic ulcer of other part of right foot with unspecified severity; I89.0 Lymphedema, not elsewhere classified; I87.2 Venous insufficiency (chronic) (peripheral); Z99.3 Dependence on wheelchair; Z88.6 Allergy status to analgesic agent; Z91.19 Patient's noncompliance with other medical treatment and regimen

== ENCOUNTER → 2018-11-15 | Outpatient (REF) ==
[~2018-11-15] MED LIST: ACET-683 PO; ACET1TAB55 PO; AUGM875T28 PO; BENA25CA4 PO; BISA10SU27 PR; DOXY100T PO; FLEEENE12 PR; MILKSUS9 PO; ONDA4TAB5 PO; PERCOCET PO; PROTPAK PO; RISATAB3 PO; SUCR1TA PO
[2018-11-15 07:22] LABS: HEMATOCRIT 26.6 % (42.0-52.0); HEMOGLOBIN 8.6 g/dl (13.5-17.5); MEAN CORPUSCULAR HEMOGLOBIN 27.1 pg (27.0-33.0); MEAN CORPUSCULAR HGB CONC 32.3 g/dl (32.0-36.5); MEAN CORPUSCULAR VOLUME 83.9 fl (80.0-96.0); PLATELET COUNT, AUTOMATED 291 10^3/uL (150-450); RED BLOOD COUNT 3.17 10^6/uL (4.30-6.10); WHITE BLOOD COUNT 8.3 10^3/uL (4.0-10.0)
[2018-11-15 07:55] LABS: BLOOD UREA NITROGEN 11 MG/DL (7-18); CALCIUM LEVEL 8.1 MG/DL (8.5-10.1); CARBON DIOXIDE LEVEL 32 MEQ/L (21-32); CHLORIDE LEVEL 98 MEQ/L (98-107); CREATININE FOR GFR 1.15 MG/DL (0.70-1.30); GLOMERULAR FILTRATION RATE > 60.0 (>56); GLUCOSE, FASTING 103 MG/DL (70-100); POTASSIUM SERUM 3.2 MEQ/L (3.5-5.1); SODIUM LEVEL 134 MEQ/L (136-145)
== END ==
LOC: SKLAB7 07:00
DX: M86.9 Osteomyelitis, unspecified (principal)

== ENCOUNTER → 2018-11-18 | Outpatient (REF) | payer MEDICARE, MEDICAID ==
[~2018-11-18] MED LIST changes: -BENA25CA4 PO; -DOXY100T PO; -RISATAB3 PO
== END ==
LOC: SKLAB7 12:24
DX: R19.7 Diarrhea, unspecified (principal)

== ENCOUNTER → 2018-11-18 | Outpatient (REF) ==
[~2018-11-18] MED LIST changes: +BENA25CA4 PO; +DOXY100T PO; +RISATAB3 PO
[2018-11-18 07:24] LABS: CALCIUM LEVEL 7.5 MG/DL (8.5-10.1); CREATININE FOR GFR 1.54 MG/DL (0.70-1.30); POTASSIUM SERUM 3.9 MEQ/L (3.5-5.1)
== END ==
LOC: SKLAB7 07:00
PROVIDERS: ATTEND Internal Medicine
DX: G80.9 Cerebral palsy, unspecified (principal)

== ENCOUNTER 2018-11-19 09:02 | Inpatient (IN) | payer MEDICARE, MEDICAID ==
[~2018-11-19] VITALS: Ht 170.2 cm; Wt 75.4 kg
[~2018-11-19 09:02] MED LIST changes: -ACET1TAB55 PO; -BENA25CA4 PO; -BISA10SU27 PR; -DOXY100T PO; -FLEEENE12 PR; -MILKSUS9 PO; -ONDA4TAB5 PO; -RISATAB3 PO
[2018-11-19] MEDS ORDERED: NS 2,180 ML in IV 1 EA IV ONE (09:45)
[2018-11-19] MEDS ORDERED: CIPROFLOXACIN 400 MG in IV 1 EA IV ONE (10:00)
[2018-11-19] MEDS ORDERED: metroNIDAZOLE 500 MG in IV 1 EA IV ONE (10:00)
[2018-11-19 10:46] LABS: INR 1.22; PROTHROMBIN TIME 15.1 SECONDS (11.8-14.0)
[2018-11-19 10:47] LABS: PARTIAL THROMBOPLASTIN TIME 30.6 SECONDS (25.0-38.4)
[2018-11-19 11:04] LABS: ALBUMIN 2.3 GM/DL (3.2-5.2); BILIRUBIN,DIRECT 0.1 MG/DL (0.0-0.2); BILIRUBIN,TOTAL 0.4 MG/DL (0.2-1.0); C REACTIVE PROTEIN QUANTITATIV 11.6 MG/DL (0.00-0.30); CREATININE FOR GFR 2.6 MG/DL (0.70-1.30); GLOMERULAR FILTRATION RATE 27.8 (>56); POTASSIUM SERUM 4.4 MEQ/L (3.5-5.1); TOTAL PROTEIN 5.3 GM/DL (6.4-8.2)
[2018-11-19] MEDS ORDERED: BISA10SU27 PR (11:16)
[2018-11-19] MEDS ORDERED: FLEEENE12 PR (11:16)
[2018-11-19] MEDS ORDERED: MILKSUS9 PO (11:16)
[2018-11-19] MEDS ORDERED: ACET1TAB55 PO (11:16)
[2018-11-19] MEDS ORDERED: ONDA4TAB5 PO (11:16)
--- NOTE | 2018-11-19 11:41 | REP ---
Clinical: Periumbilical pain. Technique: Axial noncontrast images from the lung bases to the pubic symphysis with coronal and sagittal re-formations. Findings: Lung bases are clear. Visualized heart and pericardium normal. Liver, spleen, pancreas, gallbladder, bilateral adrenal glands are normal. Kidneys demonstrate small nonobstructing intrarenal calculi measuring up to 3.5 mm in the right kidney and 2 mm in left kidney without perinephric stranding or hydroureteronephrosis. The enteric system is without obstruction or acute inflammatory process. Pelvis demonstrates normal bladder and age appropriate prostate/seminal vesicles. Inguinal and pelvic sidewall lymph nodes (right greater than left) are appreciated with right pelvic nodes measuring up to 2.5 cm and of uncertain clinical significance or etiology. Retroperitoneal lymph nodes are identified measuring up to 1.1 cm. The musculoskeletal structures demonstrate age-related changes. Impression: 1. Nonobstructing intrarenal calculi. 2. Few moderately prominent inguinal and pelvic sidewall (right greater than left) lymph nodes of uncertain etiology or significance. 3. No further acute abdominopelvic pathology appreciated. No ascites. No focal inflammatory stranding. No mass identified. Electronically Signed by Zay Rendon MD 11/19/2018 11:33 A
[2018-11-19 13:11] LABS: APPEARANCE, URINE HAZY (CLEAR); BACTERIA, URINE AUTO NEGATIVE (NEGATIVE); BILIRUBIN, URINE AUTO NEGATIVE (NEGATIVE); BLOOD, URINE BLOOD NEGATIVE (NEGATIVE); COLOR, URINE YELLOW (YELLOW); GLUCOSE, URINE (UA) AUTO NEGATIVE (NEGATIVE); KETONE, URINE AUTO NEGATIVE (NEGATIVE); LEUKOCYTE ESTERASE, URINE AUTO 2+ (NEGATIVE); NITRITE, URINE AUTO NEGATIVE (NEGATIVE); PROTEIN, URINE AUTO NEGATIVE (NEGATIVE); RBC, URINE AUTO 5 /HPF (0-3); SQUAMOUS EPITHELIAL CELL UR AU 2 /HPF (0-6); UROBILINOGEN, URINE AUTO 0.2 mg/dL (0.0-2.0); WBC, URINE AUTO 11 /HPF (0-3)
--- NOTE | 2018-11-19 14:15 | HPEPDOC ---
[facility] Medical History & Physical Date of Admission Nov 19, 2018 Date of Service: Nov 19, 2018 History and Physical CHIEF COMPLAINT: Rash/abdominal pain/diarrhea HISTORY OF PRESENT ILLNESS: Patient is a 53-year-old male with past medical history of cerebral palsy and osteomyelitis of the 5th toe on the R. foot s/p recent transmetatarsal amputation was sent in from rehab facility after developing abdominal pain/diarrhea/rash with leukocytosis WBC 41. He was discharged from [facility] on 11/14/18 and had started taking Augmentin for his foot osteomelitis then, medication was stopped yesterday and he states that the nurses throught the rash had improve but he cannot tell. He also complaints of chills at some point but otherwise only abdominal discomfort at this time. No other complaints. Also has concern for decrease pulses in his R. foot. PAST MEDICAL HISTORY: Refer to [facility] PAST SURGICAL HISTORY: RLE TMA, multiple leg surgeries, hernia repair, eye surgery SOCIAL HISTORY: Denies tobacco, alcohol or illicit drug use. FAMILY HISTORY: Adopted, unknown. ALLERGIES: Please see below. REVIEW OF SYSTEMS: 10 point review of system negative except as stated in [facility] HOME MEDICATIONS: Please see below. PHYSICAL EXAMINATION: General: No acute distress, Alert Eyes: Normal sclera, EOMI, DONNY HENT: Atraumatic, neck supple, dry mucous membranes Cardiovascular: Normal rate, normal rhythm. No murmurs appreciated. Pulmonary: Clear to auscultation b/l, no wheezing GI: Soft, generalized abdominal soreness Ext: L. foot atrophy. R. foot s/p TMA with overlying bandage c/d. Skin: Warm and dry. Diffuse urticarial rash. Neuro: CN grossly intact. LE weakness. Psych: oriented x 3 LABORATORY DATA: See below. MICROBIOLOGY: Please see below. ASSESSMENT AND PLAN: 1. Sepsis - On presentation WBC 48, lactic acid 4.6, Tmax 101.3. - s/p 30cc/kg bolus in ER. Was given cipro and flagyl for abdominal coverage. - CT abdomen does not show evidence of significant pathology. - Started on broad spectrum Abx vancomycin and cefepime. - f/u blood and urine cultures. - Elevated CRP. - osteomyelitis may be a possible etiology. 2. Cerebral palsy - PT as tolerated. 3. R. foot osteomyelitis - Hold augmentin at this time due to possible drug allergy. - Started on vancomycin and cefepime. - Wound culture from previous admission grew Proteus and Corynebacterium and was previously on vancomycin and Rocephin. - f/u blood cultures. - Difficult to palpate pulse in R. foot, had called Vascular in ER, monitor for now. Consult placed for Dr. Massey for evaluation. 4. Diffuse urticarial rash - Drug reaction/allergy vs. HSP/IgA vasculitis given abdominal pain and DEBORAH - Started on Benadryl IV as needed for itch/rash. - Will consider steroids if there is more evidence of IgA nephropathy. - UA noted. Urine protein/cr ordered. 5. DEBORAH - dehydration with also consideration for possible vasculitis/nephropathy from antibiotics. - IVF hydration. Monitor kidney functions. - Had discussed with nephrology over the phone, will place official consult tomorrow if kidney functions do not improve with hydration. 6. Thrombocytosis - Platelets 917, suspect reactive thrombocytosis from infection. - CBC diff showed elevated neutrophils with high bands. More likely than hematological pathology such as Essential thrombocytosis. - Will monitor and consult Heme if does not trend down. Patient is high risk given sepsis with significant leukocytosis. f/u lactic acid. Consider placing patient in PCU/ICU if becomes unstable. Vital Signs Vital Signs Date Time Temp Pulse Resp B/P (MAP) Pulse Ox O2 Delivery O2 Flow Rate FiO2 11/19/18 12:30 98.8 111 20 130/60 (83) 100 Room Air Laboratory Data Labs 24H Laboratory Tests 2 11/19/18 09:40: Urine Appearance HAZY, Urine Color YELLOW, Urine pH 5.0, Urine Specific [place] 1.020, Urine Protein NEGATIVE, Urine Glucose (UA) NEGATIVE, Urine Ketones NEGATIVE, Urine Urobilinogen 0.2, Urine Bilirubin NEGATIVE, Urine Leukocyte Esterase 2+H, Urine Blood NEGATIVE, Urine Nitrite NEGATIVE, Urine WBC (Auto) 11H, Urine RBC (Auto) 5H, Urine Hyaline Casts (Auto) 9, Urine Bacteria (Auto) NEGATIVE, Urine Squamous Epithelial Cells 2, Urine Sperm (Auto) 11/19/18 10:18: Prothrombin Time 15.1H, Prothromb Time International Ratio 1.22, Activated Partial Thromboplast Time 30.6, Anion Gap 15, Glomerular Filtration Rate 27.8L, Lactic Acid Level 4.6*H, Calcium Level 8.0L, Aspartate Amino Transf (AST/SGOT) 20, Alanine Aminotransferase (ALT/SGPT) 18, Alkaline Phosphatase 89, Total Bilirubin 0.4, Direct Bilirubin 0.1, C-Reactive Protein, Quantitative 11.60H, Total Protein 5.3L, Albumin 2.3L, Albumin/Globulin Ratio 0.77L, Lipase 69L CBC/BMP Laboratory Tests 11/19/18 10:18 Microbiology Microbiology 11/19/18 Blood Culture, Received Pending 11/19/18 Blood Culture, Received Pending 11/19/18 Gastrointestinal Tract Panel (PCR) - Final, Complete 11/19/18 Urine Culture, Received Pending Home Medications Scheduled PRN Acetaminophen (Acetaminophen) 325 Mg Tablet, 650 MG PO Q4H PRN for PAIN Bisacodyl (Bisacodyl) 10 Mg Supp.rect, 10 MG NM DAILY PRN for CONSTIPATION Magnesium Hydroxide (Milk of Magnesia) 400 Mg/5 Ml Oral.susp, 2,400 MG PO DAILY PRN for CONSTIPATION Ondansetron HCl (Ondansetron HCl) 4 Mg Tablet, 4 MG PO QID PRN for NAUSEA OR VOMITING Sodium Phosphate,[place]-Dibasic (Fleet Enema) 133 Ml Enema, 1 NILSON NM DAILY PRN for CONSTIPATION Allergies Coded Allergies: amoxicillin (Verified Allergy, Intermediate, rash, 11/19/18) clavulanic acid (Verified Allergy, Intermediate, rash, 11/19/18) naproxen (Verified Allergy, Unknown, SOB, 11/19/18) A-FIB/CHADSVASC A-FIB History Current/History of A-Fib/PAF?: No ROXY PALACIOS MD Nov 19, 2018 14:15
[2018-11-19 14:21] LABS: HEMATOCRIT 35.9 % (42.0-52.0); HEMOGLOBIN 11.7 g/dl (13.5-17.5); MEAN CORPUSCULAR HGB CONC 32.6 g/dl (32.0-36.5); MEAN CORPUSCULAR VOLUME 79.8 fl (80.0-96.0)
[2018-11-19 14:35] VITALS: BP 130/81
[2018-11-19] MEDS: ACETAMINOPHEN TAB 650MG DOSE (2X325MG) PO PRN ×2 (14:43→22:52)
[2018-11-19 14:49] LABS: WHITE BLOOD COUNT 48.4 10^3/uL (4.0-10.0)
[2018-11-19 14:50] LABS: PLATELET COUNT, AUTOMATED 917 10^3/uL (150-450)
[2018-11-19 15:27] LABS: EOSINOPHILS 3 % (0-3); LYMPHOCYTES 4 % (16-44); MONOCYTES 4 % (0-5); NEUTROPHILS 77 % (28-66); PLATELET ESTIMATE INCREASED (NORMAL)
[2018-11-19 15:28] LABS: ANISOCYTOSIS 1+; POLYCHROMASIA 1+
--- NOTE | 2018-11-19 15:29 | PHACANCOPD ---
PHARMACY VANCOMYCIN DOSING Pt Demographics Demographics Patient Age:53 , Weight:72.730 , Gender: male Adjusted Body Weight Date: 11/19/18, Adjusted Body Weight: Kg Events Past 24 Hours Events Past 24 Hours: YES: Change in CrCl, Fever, Elevation in WBC; NO: Dialysis, Diuretic Therapy, Pending Diagnostics, Pending Procedures, Other Vancomycin Vancomycin indication: SEPSIS Vancomycin Target Ranges: 15-20 mcg/ml Vancomycin Load Y/N: Yes Load Dose Date Time Vancomycin Load Dose: 1000mg Date: 11/19 Time: ~16:00 Vancomycin Dose Date: 11/20/18. Current Vancomycin Dose: [750mg IV q12h @09] Intermittent Dosing?: No Labs Labs Item Value Date Time White Blood Count 48.4 10^3/uL *H 11/19/18 1403 Creatinine 2.60 MG/DL H # 11/19/18 1018 Lactic Acid Level 4.6 MMOL/L *H 11/19/18 1018 C-Reactive Protein, Quantitative 11.60 MG/DL H 11/19/18 1018 Vital Signs Label Value Date Time Patient Temperature 101.3 degrees F 11/19/18 1422 Temperature Source Axillary 11/19/18 1422 Patient Temperature 100.4 degrees F 11/19/18 1435 Temperature Source Temporal 11/19/18 1435 Micro Microbiology 11/19/18 Blood Culture, Received Pending 11/19/18 Blood Culture, Received Pending 11/19/18 Gastrointestinal Tract Panel (PCR) - Final, Complete 11/19/18 Urine Culture, Received Pending Creatinine Clearance Date:11/19/18. Creatinine Clearance: [~31 ml/min]. Assessment and Plan Maintaining Current Dose?: Yes Reason for dose change: No Dose Change Pharmacist Note Pharmacist Note Date: 11/19/18. Pharmacist note: pt has been admitted for abdominal pain/sepsis. He was recently discharged from [facility] to a rehab facility prior to readmission. He received one dose of cipro and flagyl in the ER this afternoon and has been started on Cefepime and Vancomycin inpatient. His SCr is significantly elevated from his baseline. I have started him on vancomycin 1g IV today and will start 750mg q12h dosing tomorrow morning @09:00. I will reassess his renal function in the morning and make any necessary adjustments. Blood and urine cultures are pending. We will continue to monitor. Otis Santiago Pharm.D. Nov 19, 2018 15:29
[2018-11-19] MEDS ORDERED: VANCOMYCIN HCL 1,000 MG, VIAL MATE ADAPTER 1 EACH in D5W 250 ML IV ONE (16:00)
[2018-11-19] MEDS: NS 1,000 ML IV SCH (16:17)
[2018-11-19] MEDS: diphenhydrAMINE INJ 50MG/ML VIAL (J1200) IV PRN (16:18)
[2018-11-19 18:00] VITALS: BP 121/74
[2018-11-19] MEDS: CEFEPIME HCL 2 GM in D5W MINI-BAG PLUS 50 ML IV SCH (18:15)
[2018-11-19] MEDS ORDERED: ONDANSETRON 4MG/2ML VIAL (J2405) IV PRN (18:30)
[2018-11-19] MEDS ORDERED: NITROGLYCERIN 0.4 MG SUBL TABLET SL STA (18:51)
[2018-11-19] MEDS ORDERED: NITROGLYCERIN 0.4 MG SUBL TABLET As Ordered ONE (18:56)
[2018-11-19] MEDS ORDERED: ASPIRIN 325 MG TAB PO ONE (19:15)
[2018-11-19 19:20] LABS: TROPONIN I 0.03 NG/ML (< 0.10)
[2018-11-19] MEDS ORDERED: MORPHINE 4 MG/ML 1ML VIAL/SYRINGE (J2270) IV ONE ×2 (20:00→21:00)
[2018-11-19] MEDS ORDERED: NS 1,000 ML IV ONE ×3 (20:15→22:45)
[2018-11-19] MEDS ORDERED: SODIUM CHLORIDE HYPERTONIC 3% 15ML NEB SOL INH PRN (20:15)
[2018-11-19 20:22] LABS: ALBUMIN 1.9 GM/DL (3.2-5.2); BILIRUBIN,TOTAL 0.5 MG/DL (0.2-1.0); CALCIUM LEVEL 7.5 MG/DL (8.5-10.1); CK-MB VALUE MASS 2.8 NG/ML (<3.6); CREATININE FOR GFR 2.96 MG/DL (0.70-1.30); MB/CK RELATIVE INDEX 2.33 (< OR =4); TOTAL PROTEIN 5.2 GM/DL (6.4-8.2)
--- NOTE | 2018-11-19 20:27 | IPNPDOC ---
Subjective Date Seen The patient was seen on 11/19/18. Subjective Chief Complaint/HPI Chest pain with tachycardia General: Reports: Malaise Constitutional: Reports: Malaise Eyes: Denies: Pain, Vision change ENT: Denies: Head Aches, Ear Pain, Dysphagia Skin: Reports: Rash, Lesions, Itching Pulmonary: Reports: Cough Cardiovascular: Reports: Chest Pain Gastrointestinal: Reports: Diarrhea Musculoskeletal: Reports: Back Pain Objective Physical Examination General Exam: Positive: Alert, Cooperative, Moderate Distress Eye Exam: Positive: PERRLA ENT Exam: Positive: Atraumatic Neck Exam: Positive: Supple Chest Exam: Positive: Diminished Heart Exam: Positive: Tachycardic (148), Irregular Rhythm Telemetry: Positive: Tachycardia (EKG- Sinus Tachycardia 141 with possible Atrial Flutter) Abdomen Exam: Positive: Normal bowel sounds Skin Exam: Positive: Rash, Lesion, Pruritus, Other skin issue (right toe amputation) Neuro Exam: Positive: Other (decreased muscle tone with weakness left side of body) Psych Exam: Positive: Anxiety, Oriented x 3 Assessment /Plan Assessment Angina-Acute -Stat EKG, placed patient on Telemetry remote -Stat labs: CBC, CK-MB, Trops (trending q6h; Lactic Acid (LA); Mag, Phos, CMP, PT, INR -Nitro paste 1mg 1/2 inch -Morphine 1mg slow IV push now, will repeat if patient's pain continues after 15-20 minutes -Aspirin 325 mg po 1 now Anxiety-Acute -Trial Atarax 10 mg po- improved with medication Sinus Tachycardia-Acute -Nitro glycerin 0.4 mg stat -EKG repeat Personally reviewed patients EKG which shows Sinus Tachycardia with Atrial Flutter. Vent Rate 141; DC interval 127; QRS duration 74; QT/QTC 289/371; PRT axis 34 -22 29. Lab Results: LA: 9.4 WBC increased to 53.4-consulted with Dr. Luna who wanted Surgical consulted. Surgery consult/manage placed and spoke with David Eugeneo-General Surgery who will see patient in the morning. Patient order to transfer to PCU. CT Chest without IV contrast placed. Problems (1) Angina at rest Status: Acute Response to Treatment: Improving Discussed With: Patient Problem Specific Plan: Monitor Clinically, Repeat Labs, Repeat Tests (2) Sinus tachycardia by electrocardiogram Status: Acute Response to Treatment: Improving Discussed With: Patient Problem Specific Plan: Monitor Clinically, Repeat Labs Plan/VTE VTE Prophylaxis Ordered?: Yes Plan IVF: Continue VS, I&O, 24H, Fishbone Vital Signs/I&O Vital Signs Date Time Temp Pulse Resp B/P (MAP) Pulse Ox O2 Delivery O2 Flow Rate FiO2 11/19/18 19:22 22 11/19/18 18:00 98.7 110 121/74 (90) 100 11/19/18 14:22 Room Air Laboratory Data 24H LABS Laboratory Tests 2 11/19/18 09:40: Urine Appearance HAZY, Urine Color YELLOW, Urine pH 5.0, Urine Specific [place] 1.020, Urine Protein NEGATIVE, Urine Glucose (UA) NEGATIVE, Urine Ketones NEGATIVE, Urine Urobilinogen 0.2, Urine Bilirubin NEGATIVE, Urine Leukocyte Esterase 2+H, Urine Blood NEGATIVE, Urine Nitrite NEGATIVE, Urine WBC (Auto) 11H, Urine RBC (Auto) 5H, Urine Hyaline Casts (Auto) 9, Urine Bacteria (Auto) NEGATIVE, Urine Squamous Epithelial Cells 2, Urine Sperm (Auto) 11/19/18 10:18: Prothrombin Time 15.1H, Prothromb Time International Ratio 1.22, Activated Partial Thromboplast Time 30.6, Anion Gap 15, Glomerular Filtration Rate 27.8L, Lactic Acid Level 4.6*H, Calcium Level 8.0L, Aspartate Amino Transf (AST/SGOT) 20, Alanine Aminotransferase (ALT/SGPT) 18, Alkaline Phosphatase 89, Total Bilirubin 0.4, Direct Bilirubin 0.1, Troponin I 0.03, C-Reactive Protein, Qu antitative 11.60H, Total Protein 5.3L, Albumin 2.3L, Albumin/Globulin Ratio 0.77L, Lipase 69L 11/19/18 14:03: Nucleated Red Blood Cells % (auto) 0.0, Neutrophils 77H, Band Neutrophils 12H, Lymphocytes (Manual) 4L, Monocytes (Manual) 4, Eosinophils (Manual) 3, Platelet Estimate INCREASED, Polychromasia 1+, Anisocytosis 1+ 11/19/18 15:54: Lactic Acid Followup at 4 Hours 3.8*H 11/19/18 19:45: CBC/BMP Laboratory Tests 11/19/18 10:18 11/19/18 14:03 Red Blood Count 4.50, Mean Corpuscular Volume 79.8 L, Mean Corpuscular Hemoglobin 26.0 L, Mean Corpuscular Hemoglobin Concent 32.6, Red Cell Distribution Width 15.0 H Microbiology Microbiology 11/19/18 Blood Culture, Received Pending 11/19/18 Blood Culture, Received Pending 11/19/18 Gastrointestinal Tract Panel (PCR) - Final, Complete 11/19/18 Urine Culture, Received Pending MEERA CHAO [facility] Nov 19, 2018 20:06
[2018-11-19] MEDS ORDERED: hydrOXYzine 10 MG TAB PO ONE (20:30)
[2018-11-19 20:58] LABS: HEMATOCRIT 33.5 % (42.0-52.0); HEMOGLOBIN 10.9 g/dl (13.5-17.5); MEAN CORPUSCULAR HEMOGLOBIN 26.9 pg (27.0-33.0); MEAN CORPUSCULAR HGB CONC 32.5 g/dl (32.0-36.5); MEAN CORPUSCULAR VOLUME 82.7 fl (80.0-96.0); PLATELET COUNT, AUTOMATED 840 10^3/uL (150-450); RED BLOOD COUNT 4.05 10^6/uL (4.30-6.10)
[2018-11-19 21:00] VITALS: BP 90/53
[2018-11-19] MEDS ORDERED: NITROGLYCERIN 2% OINT 1 GM *U/D* PKT TOP ONE (21:00)
[2018-11-19 21:08] LABS: WHITE BLOOD COUNT 53.6 10^3/uL (4.0-10.0)
[2018-11-19 21:20] LABS: EOSINOPHILS 2 % (0-3); LYMPHOCYTES 2 % (16-44); MONOCYTES 4 % (0-5); NEUTROPHILS 82 % (28-66); PLATELET ESTIMATE INCREASED (NORMAL); TOXIC VACUOLATION 1+
[2018-11-19 21:22] LABS: ANISOCYTOSIS 1+; POLYCHROMASIA 1+
[2018-11-19 21:50] LABS: ABG BASE EXCESS -10.6 (-2.0-2.0); ABG HCO3 12.2 MEQ/L (22.0-26.0); ABG O2 SATURATION 98.1 % (95.0-99.0); ABG PARTIAL PRESSURE CO2 20.1 mmHg (35.0-45.0); ABG TOTAL CO2 12.8 MEQ/L (22.0-29.0); ABG pH (ARTERIAL) 7.402 UNITS (7.350-7.450)
[2018-11-19] MEDS ORDERED: NS 1,000 ML IV STA (22:42)
[2018-11-19] MEDS ORDERED: BISACODYL 10 MG SUPP PR PRN (22:45)
--- NOTE | 2018-11-19 22:50 | REPVR ---
EXAM: CT Chest Without Contrast EXAM DATE/TIME: 11/19/18 (10:08pm) CLINICAL HISTORY: 53 year old male with chest pain TECHNIQUE: Imaging protocol: Computed tomography of the chest without contrast. 3D rendering: MIP reconstructed images were created and reviewed. Radiation optimization: All CT scans at this facility use at least one of these dose optimization techniques: automated exposure control; mA and/or kV adjustment per patient size (includes targeted exams where dose is matched to clinical indication); or iterative reconstruction. COMPARISON: No relevant prior studies available FINDINGS: Lungs: Unremarkable. No consolidation. No masses. Pleural space: Unremarkable. No pneumothorax. No pleural effusions. Heart: Unremarkable. No cardiomegaly. No pericardial effusion. Aorta: Unremarkable. No aortic aneurysm. Lymph nodes: Unremarkable. No enlarged lymph nodes. Bones/joints: No acute fracture. Degenerative thoracic spine changes. Soft tissues: Unremarkable. Upper abdomen: Distended gallbladder. Probably small gallstones, layering dependently (the gallbladder is partially imaged). Non-obstructing right intrarenal stones (the kidneys are partially imaged). IMPRESSION: No acute findings. No focal infiltrates and no pleural effusions. Most likely small gallstones, in a distended gallbladder (the gallbladder is partially imaged). See additional comments above. Electronically signed by: Feli Mauricio On 11/19/2018 22:50:41 PM
[2018-11-19 23:00] VITALS: BP_SYST 74; BP_SYST 88; BP_DIAS 51; BP_DIAS 53
[2018-11-20] VITALS (22 sets, daily range): BP systolic 81–116; BP diastolic 44–63
[2018-11-20] MEDS ORDERED: metroNIDAZOLE 500 MG in IV 1 EA IV SCH ×2
[2018-11-20] MEDS ORDERED: EPINEPHrine INJ 1 MG/ML 1ML AMP IM STA (01:01)
[2018-11-20] MEDS: diphenhydrAMINE INJ 50MG/ML VIAL (J1200) IV PRN ×2 (01:13→14:50)
--- NOTE | 2018-11-20 02:28 | PHACANCOPD ---
PHARMACY VANCOMYCIN DOSING Pt Demographics Demographics Patient Age:53 , Weight:72.730 , Gender: male Adjusted Body Weight Date: 11/19/18, Adjusted Body Weight: Kg Events Past 24 Hours Events Past 24 Hours: NO: Dialysis, Diuretic Therapy, Change in CrCl, Fever, Elevation in WBC, Pending Diagnostics, Pending Procedures, Other Vancomycin Vancomycin indication: SEPSIS Vancomycin Target Ranges: 15-20 mcg/ml Vancomycin Load Y/N: Yes Load Dose Date Time Vancomycin Load Dose: 1000mg Date: 11/19 Time: ~16:00 Vancomycin Dose Date: 11/20/18. Current Vancomycin Dose: [750mg IV q24h @09] Intermittent Dosing?: No Labs Labs Item Value Date Time White Blood Count 53.6 10^3/uL *H 11/19/182050 Glomerular Filtration Rate 24.0 L 11/19/181944 Creatinine 2.96 MG/DL H 11/19/181944 Blood Urea Nitrogen 33 MG/DL H 11/19/181944 Vital Signs Label Value Date Time Patient Temperature 99.9 degrees F 11/20/18 0154 Temperature Source Rectal 11/20/18 0154 Micro Microbiology 11/20/18 Blood Culture, Received Pending 11/19/18 Blood Culture, Received Pending 11/19/18 Blood Culture, Received Pending 11/19/18 Gastrointestinal Tract Panel (PCR) - Final, Complete 11/19/18 Gram Stain, Received Pending 11/19/18 Sputum Culture, Received Pending 11/19/18 Urine Culture, Received Pending Creatinine Clearance Date:11/20/18. Creatinine Clearance: [~27 ml/min]. Pending Labs Trough 11-21 @0800 Assessment and Plan Maintaining Current Dose?: Yes Reason for dose change: No Dose Change Pharmacist Note Pharmacist Note Date: 11/20/18. Pharmacist note: Dr damian changed dose to 750mg q24h. Trough ordered for 11-21 @0800. Will monitor and make adjustments as needed. NICKY CHIU PHARMACY Nov 20, 2018 02:28
[2018-11-20] MEDS: CLINDAMYCIN 600 MG in IV 1 EA IV SCH ×4 (02:35→20:30)
[2018-11-20] MEDS: NS 1,000 ML IV SCH ×3 (02:36→20:00)
[2018-11-20] MEDS: HEPARIN SOD (PORCINE) 5000 UNITS/ML VIAL SQ SCH ×3 (05:30→22:26)
[2018-11-20] MEDS: CEFEPIME HCL 2 GM in D5W MINI-BAG PLUS 50 ML IV SCH ×2 (05:30→16:20)
--- NOTE | 2018-11-20 06:19 | ECGEPIP ---
[facility] Test Date: 2018-11-19 Pat Name: YARA ZAMBRANO Department: Room: [place] [address] Gender: Male [employer]ter Supervisor: : [id number] Requested By: ROXY Lopez Order Number: [id number] Reading MD: Liliya Harris Measurements Intervals [place] Rate: 141 P: 34 GA: 127 QRS: -22 QRSD: 74 T: 29 QT: 289 QTc: 444 Interpretive Statements SINUS TACHYCARDIA LEFT AXIS DEVIATION LOW QRS VOLTAGE IN PRECORDIAL LEADS NONSPECIFIC T-WAVE ABNORMALITY PRWP POSSIBLE OLD SEPTAL MS NO PRIOR Electronically Signed on 11-20-2018 6:18:56 EDT by Liliya Harris
[2018-11-20 06:34] LABS: HEMATOCRIT 28.2 % (42.0-52.0); HEMOGLOBIN 9.2 g/dl (13.5-17.5); MEAN CORPUSCULAR HEMOGLOBIN 26.7 pg (27.0-33.0); MEAN CORPUSCULAR HGB CONC 32.6 g/dl (32.0-36.5); RED BLOOD COUNT 3.44 10^6/uL (4.30-6.10)
[2018-11-20 06:37] LABS: WHITE BLOOD COUNT 34.1 10^3/uL (4.0-10.0)
[2018-11-20 06:38] LABS: PLATELET COUNT, AUTOMATED 617 10^3/uL (150-450)
[2018-11-20 07:01] LABS: CALCIUM LEVEL 6.4 MG/DL (8.5-10.1); CREATININE FOR GFR 2.44 MG/DL (0.70-1.30); POTASSIUM SERUM 3.9 MEQ/L (3.5-5.1); TROPONIN I 0.06 NG/ML (< 0.10)
--- NOTE | 2018-11-20 07:20 | IPNPDOC ---
Date Seen The patient was seen on 11/20/18. Progress Note SUBJECTIVE: Patient was noted to be in severe chest pain yesterday evening? suspect it was likely abdominal pain. No significant troponin elevation and EKG with no evidence of acute ischemia. Lactic acid increase to 9.4 last night but had trended down to 3.7 this morning with almost complete resolution of symptoms. OBJECTIVE PHYSICAL EXAMINATION: VITAL SIGNS: Please see below. General: No acute distress, Alert Eyes: Normal sclera, EOMI, DONNY HENT: Atraumatic, neck supple, moist mucous membranes Cardiovascular: Normal rate, normal rhythm. No murmurs appreciated. Pulmonary: Clear to auscultation b/l, no wheezing GI: Soft, nontender Skin: Warm and dry Neuro: CN grossly intact. No focal deficits. Strengths equal b/l. Psych: oriented x 3 LABORATORY DATA, IMAGING STUDIES, MICROBIOLOGY: Please see below. DVT prophylaxis ordered?: Lovenox ASSESSMENT AND PLAN: 1. Sepsis - Concern for intraabdominal infection/ischemia vs osteomyelitis as the source. - Suspecting C. diff given significant leukocytosis, however stool study is negative. - On presentation WBC 48, lactic acid 4.6, Tmax 101.3. - On broad spectrum Abx vancomycin, cefepime and clindamycin. - f/u blood and urine cultures. 2. Cerebral palsy - PT as tolerated. 3. R. foot osteomyelitis - Hold augmentin at this time due to suspected drug allergy. - Started on vancomycin, cefepime and clindamycin. - Wound culture from previous admission grew Proteus and Corynebacterium and was previously on vancomycin and Rocephin. - f/u blood cultures. - Difficult to palpate pulse in R. foot, Consult placed for Dr. Massey for evaluation. 4. Diffuse urticarial rash - Drug reaction/allergy vs. HSP/IgA vasculitis given abdominal pain and DEBORAH - Started on Benadryl IV as needed for itch/rash. - UA noted. Urine protein/cr ordered. 5. DEBORAH - dehydration with also consideration for possible vasculitis/nephropathy from antibiotics. - IVF hydration. Monitor kidney functions. - Kidney function improving. Consider nephrology consult if worsens. 6. Thrombocytosis - Platelets on presentation 917, suspect reactive thrombocytosis from infection. - Trending down. Patient is high risk given sepsis with significant leukocytosis. VS, I&O, 24H, Fishbone Vital Signs/I&O Vital Signs Date Time Temp Pulse Resp B/P (MAP) Pulse Ox O2 Delivery O2 Flow Rate FiO2 11/20/18 06:00 99.1 73 18 95/55 (68) 100 11/19/18 14:22 Room Air I&O- Last 24 Hours up to 6 AM 11/20/18 06:00 Intake Total 3140 ml Output Total 825 ml Balance 2315 ml Laboratory Data 24H LABS Laboratory Tests 2 11/19/18 09:40: Urine Appearance HAZY, Urine Color YELLOW, Urine pH 5.0, Urine Specific [place] 1.020, Urine Protein NEGATIVE, Urine Glucose (UA) NEGATIVE, Urine Ketones NEGATIVE, Urine Urobilinogen 0.2, Urine Bilirubin NEGATIVE, Urine Leukocyte Esterase 2+H, Urine Blood NEGATIVE, Urine Nitrite NEGATIVE, Urine WBC (Auto) 11H, Urine RBC (Auto) 5H, Urine Hyaline Casts (Auto) 9, Urine Bacteria (Auto) NEGATIVE, Urine Squamous Epithelial Cells 2, Urine Sperm (Auto) 11/19/18 10:18: Prothrombin Time 15.1H, Prothromb Time International Ratio 1.22, Activated Pa rtial Thromboplast Time 30.6, Anion Gap 15, Glomerular Filtration Rate 27.8L, Lactic Acid Level 4.6*H, Calcium Level 8.0L, Aspartate Amino Transf (AST/SGOT) 20, Alanine Aminotransferase (ALT/SGPT) 18, Alkaline Phosphatase 89, Total Bilirubin 0.4, Direct Bilirubin 0.1, Troponin I 0.03, C-Reactive Protein, Quantitative 11.60H, Total Protein 5.3L, Albumin 2.3L, Albumin/Globulin Ratio 0.77L, Lipase 69L 11/19/18 14:03: Nucleated Red Blood Cells % (auto) 0.0, Neutrophils 77H, Band Neutrophils 12H, Lymphocytes (Manual) 4L, Monocytes (Manual) 4, Eosinophils (Manual) 3, Platelet Estimate INCREASED, Polychromasia 1+, Anisocytosis 1+ 11/19/18 15:54: Lactic Acid Followup at 4 Hours 3.8*H 11/19/18 19:45: Anion Gap 17H, Glomerular Filtration Rate 24.0L, Lactic Acid Level 9.4*H, Blood Urea Nitrogen 33H, Creatinine 2.96H, Sodium Level 128L, Potassium Level 4.0, Chloride Level 94L, Carbon Dioxide Level 17L, Calcium Level 7.5L, Phosphorus Lev el 5.0H, Aspartate Amino Transf (AST/SGOT) 25, Alanine Aminotransferase (ALT/SGPT) 20, Total Creatine Kinase 120, Alkaline Phosphatase 84, Total Bilirubin 0.5, Total Protein 5.2L, Albumin 1.9L, Magnesium Level 2.0, Creatine Kinase MB 2.8, Creatine Kinase MB Relative Index 2.33, Troponin I 0.08#, Alb umin/Globulin Ratio 0.58L 11/19/18 20:51: Immature Granulocyte % (Auto) , White Blood Count 53.6*H, Red Blood Count 4.05L, Hemoglobin 10.9L, Hematocrit 33.5L, Mean Corpuscular Volume 82.7, Mean Corpuscular Hemoglobin 26.9L, Mean Corpuscular Hemoglobin Concent 32.5, Red Cell Distribution Width 15.0H, Platelet Count 840H, Neutrophils # (Auto) , Nucleated Red Blood Cells % (auto) 0.1H, Neutrophils 82H, Band Neutrophils 10, Lymphocytes (Manual) 2L, Monocytes (Manual) 4, Eosinophils (Manual) 2, Toxic Vacuolation 1+, Platelet Estimate INCREASED, Red Blood Cell Morphology , Polychromasia 1+, Anisocytosis 1+ 11/19/18 21:35: Blood Gas Bicarbonate Standard 16.0L, Arterial Blood pH 7.402, Arterial Blood Partial Pressure CO2 20.1L, Arterial Blood Partial Pressure O2 106.0H, Arterial Blood Total CO2 12.8L, Arterial Blood HCO3 12.2L, Arterial Blood Base Excess - 10.6L, Arterial Blood Oxygen Saturation 98.1 11/20/18 01:19: Troponin I 0.10#, Lactic Acid Followup at 4 Hours 3.7*H 11/20/18 06:17: Nucleated Red Blood Cells % (auto) 0.0, Anion Gap 9, Glomerular Filtration Rate 30.0L, Blood Urea Nitrogen 36H, Creatinine 2.44H, Sodium Level 130L, Potassium Level 3.9, Chloride Level 103, Carbon Dioxide Level 18L, Calcium Level 6.4L, Troponin I 0.06# CBC/BMP Laboratory Tests 11/19/18 10:18 11/19/18 14:03 Red Blood Count 4.50, Mean Corpuscular Volume 79.8 L, Mean Corpuscular Hemoglobin 26.0 L, Mean Corpuscular Hemoglobin Concent 32.6, Red Cell Distribution Width 15.0 H 11/19/18 19:45 Calcium Level 7.5 L, Phosphorus Level 5.0 H, Aspartate Amino Transf (AST/SGOT) 25, Alanine Aminotransferase (ALT/SGPT) 20, Total Creatine Kinase 120, Alkaline Phosphatase 84, Total Bilirubin 0.5, Total Protein 5.2 L, Albumin 1.9 L 11/19/18 20:51 Red Blood Count 4.05 L, Mean Corpuscular Volume 82.7, Mean Corpuscular Hemoglobin 26.9 L, Mean Corpuscular Hemoglobin Concent 32.5, Red Cell Distribution Width 15.0 H, Neutrophils # (Auto) 11/20/18 06:17 Red Blood Count 3.44 L, Mean Corpuscular Volume 82.0, Mean Corpuscular Hemoglobin 26.7 L, Mean Corpuscular Hemoglobin Concent 32.6, Red Cell Distribution Width 15.2 H, Calcium Level 6.4 L Microbiology Microbiology 11/20/18 Blood Culture, Received Pending 11/19/18 Blood Culture, Received Pending 11/19/18 Blood Culture, Received Pending 11/19/18 Gastrointestinal Tract Panel (PCR) - Final, Complete 11/19/18 Gram Stain, Received Pending 11/19/18 Sputum Culture, Received Pending 11/19/18 Urine Culture, Received Pending ROXY PALACIOS MD Nov 20, 2018 07:20
[2018-11-20] MEDS ORDERED: ENOXAPARIN 40 MG/0.4 ML SYRINGE (J1650) SC SCH (09:00)
[2018-11-20] MEDS ORDERED: VANCOMYCIN HCL 750 MG, VIAL MATE ADAPTER 1 EACH in D5W 250 ML IV SCH (09:00)
--- NOTE | 2018-11-20 09:08 | CR ---
DATE OF CONSULTATION: HISTORY OF PRESENT ILLNESS: The patient is a 53-year-old male with a past medical history of cerebral palsy with previous history of leg surgeries and a recent admission at [facility] for osteomyelitis in the right foot status post transmetatarsal amputation. The patient was sent to a rehab facility where he was continued on antibiotics with Augmentin for a wound culture which previously grew Proteus, Corynebacterium and coagulase-negative Staphylococcus. The patient was discharged a few days ago to the rehab. At this facility, the patient started developing worsening of a diffuse rash associated with pruritus as well as development of nausea and some abdominal pain. The patient also reported diarrhea but this has been since his previous admission and he does not feel that the diarrhea has changed. He denies any blood in the stool. He denies a previous history of rash or allergy to antibiotics and his only previously noted drug allergy was to naproxen where he reports shortness of breath and difficulty breathing. The patient also reported, around the same time a few days prior, some facial swelling in forehead and around his eyes after he had a haircut. The patient also reported some fevers and chills. He had denied any increased shortness of breath. No coughing or wheezing. The patient was re-admitted this afternoon and was found to have fever and significant leukocytosis and lactic acidosis. He was also found to have acute kidney injury (DEBORAH) on this admission. He was given broad-spectrum antibiotics with the vancomycin and cefepime as well as a dose of Flagyl. He was also given normal saline bolus of 30 mL/kg in the emergency department (ED) and continued on IV fluid for hydration. Overnight the patient was noted to be more hypotensive. He continued to deny any change in his symptoms besides some new chest pain radiating between his shoulder blades. He was still mentating appropriately, was not in respiratory distress. he was given nitro paste as well as morphine for the chest pain and transferred to the intensive care unit (ICU). In the ICU, the patient received additional bolus of IV fluids at least an additional 3 liters NS. He also had a Rdz placed. With the fluids, the patient's blood pressure improved. He currently denies any chest pain. No shortness of breath. No significant abdominal pain or nausea or vomiting. PAST MEDICAL HISTORY: Cerebral palsy, wheelchair bound. Has not seen physician in more than 5 years. PAST SURGICAL HISTORY: Hernia repair. Multiple leg surgeries. Eye surgery. SOCIAL HISTORY: Denies any tobacco use or alcohol use. FAMILY HISTORY: The patient is adopted. Unknown family history, HOME MEDICATIONS: - Tylenol as needed - bisacodyl suppository as needed - Milk of Magnesia as needed - Zofran as needed - Augmentin ALLERGIES: NAPROXEN and AUGMENTIN. PHYSICAL EXAMINATION: Temperature 100.6, maximum temperature (T-max) 102.6, pulse 104, respirations 18, blood pressure 97/52, O2 sat 100% on room air. GENERAL: The patient is lying in bed, does not appear to be in any acute distress. Is not using any accessory muscles for respiration and is able to speak in complete sentences. He appears contracted HEENT: Normocephalic, atraumatic. Mucous membranes are dry. There is no scleral icterus bilaterally. The pupils are equal and reactive to light. There is some mild periorbital edema bilaterally, which is new in the past few days. NECK: Supple. Trachea is midline. No palpable cervical adenopathy. CARDIOVASCULAR: Tachycardia, regular rate and rhythm. Normal S1,S2. Unable to appreciate any murmurs. PULMONARY: Diminished breath sounds bilaterally but clear to auscultation with no significant rhonchi or wheezing. ABDOMEN: Soft, obese. Mild tenderness in the epigastric region. LOWER EXTREMITIES: There is some muscle wasting chronically. Right foot is status post transmetatarsal amputation with a bandage overlying. SKIN: He has a diffuse maculopapular rash, which appears morbilliform mostly with some confluent areas. The rash is pruritic. LABORATORY DATA: WBC 53.6, hemoglobin 10.9, platelet 840. Chemistry: Sodium is 128, potassium 4.0, chloride 94, bicarbonate 17, BUN 33, creatinine 2.96, glucose is 129. Anion gap is 17, lactic acid increase to 9.4, phosphorus of 5.0, calcium 7.5. Troponins negative, AST, ALT within normal limits. Lipase was normal. Albumin is 1.9. ABG: pH of 7.402, pCO2 20.1, pO2 of 106.0. Microbiology: Cultures are pending. GI PCR panel was negative. IMAGING: CT abdomen and pelvis showed a nonobstructing intrarenal calculi in the right kidney and in the left kidney without any perinephric stranding or hydroureteronephrosis. There are some inguinal and pelvic side wall lymph nodes and some retroperitoneal lymph nodes which are enlarged but no ascites or other acute abdominal pathology on a noncontrast CT. There are most likely some small gallstones noted with a mildly distended gallbladder. CT chest showed no focal opacities or consolidation. No pleural effusions. There is some mild atelectasis in the bases but some also limited with motion artifact. There is no significant mediastinal adenopathy. ASSESSMENT/PLAN: Patient is a 53-year-old male with history of cerebral palsy and a recent admission for osteomyelitis in the right foot status post a transmetatarsal amputation. The patient was discharged to rehab with few days ago with Augmentin for his osteomyelitis as his previous wound cultures grew Corynebacterium, coagulase negative Staphylococcus Proteus. The patient presents now again to [facility] with complaints of worsening diffuse pruritic rash and abdominal pain with some associated nausea. The patient was noted to have significant fever on admission as well as leukocytosis and acute renal failure. The patient was started on broad-spectrum antibiotics and given IV fluid hydration. He was also noted to have lactic acidosis likely secondary to sepsis. His blood pressure was lower overnight and the patient had complained of some chest discomfort and he was given morphine and nitro paste which caused further lowering of his blood pressure. His blood pressure did respond to further fluid boluses with normal saline and symptomatically the patient appears to be awake and alert and denies any complaints currently besides some mild abdominal discomfort and itching from the rash. The patient with sepsis with increasing lactic acidosis, possibly secondary to worsening osteomyelitis and possible localized cellulitis. He does not have any significant lower extremity tenderness and no increased CPK to suggest a necrotizing infection currently. The patient did have some borderline hypotension and shock, likely secondary to his infection but he did respond to fluids. Also in the differential for his shock, especially with his likely drug induced rash and evidence of end-organ damage and abdominal complaints is anaphylactic reaction. - Would give the patient a dose of epinephrine IM for possible anaphylactic reaction. - Will continue with maintenance fluids with normal saline currently at 100 mL/h with additional IV fluid boluses as needed. The patient does not appear to have any evidence of fluid overload currently. He is saturating well on room air and is not in any respiratory distress and does not have any significant lower extremity edema or anasarca. - Continue to monitor blood pressures to maintain a MAP above 65 and will continue to trend lactic acid. - Would also check a procalcitonin and continue to trend to help monitor response to antibiotics. - Continue with vancomycin and cefepime. His GI panel was negative. Can discontinue the Flagyl. There is some possibility for a toxic shock syndrome given his possible localized skin infection and coagulase-negative Staphylococcus. Therefore, would start clindamycin while the cultures are pending. - The patient has a Rdz placed and he does have some urine output currently but is diminished. Will continue to monitor his urine output and his renal function. He does have acute renal failure likely prerenal. - Continue to monitor his electrolytes. He has mild hyponatremia and hypochloremia. Would check his urine lytes. The patient was given a one-time dose of aspirin 325 mg earlier in the evening. He does have an allergy to naproxen and there is some concern that he may have nonsteroidal antiinflammatory (NSAID) allergy. Would hold off on further NSAID. Can give Tylenol as needed for pain or fever. - Continue with Benadryl as needed. If patient has worsening rash. Would consider oral steroids. - Will followup surgery consult and vascular surgery consult and their recommendations. Deep venous thrombosis (DVT) prophylaxis: Will discontinue Lovenox and changed to heparin. FULL CODE. Total critical care time spent not including any procedures approximately 1 hour and 45 minutes. MTDD
[2018-11-20] MEDS: VANCOMYCIN HCL 750 MG, VIAL MATE ADAPTER 1 EACH in D5W 250 ML IV SCH (09:37)
[2018-11-20] MEDS ORDERED: CALCIUM GLUCONATE 1,000 MG in D5W MINI-BAG PLUS 100 ML IV ONE (10:00)
[2018-11-20] MEDS: ACETAMINOPHEN TAB 650MG DOSE (2X325MG) PO PRN ×2 (12:43→20:31)
[2018-11-21] VITALS (16 sets, daily range): BP systolic 81–108; BP diastolic 44–60
[2018-11-21 02:26] LABS: CREATININE,RANDOM URINE 60.6 MG/DL; POTASSIUM RANDOM URINE 23.4 MEQ/L
[2018-11-21] MEDS: CLINDAMYCIN 600 MG in IV 1 EA IV SCH ×4 (02:56→20:01)
[2018-11-21] MEDS: HEPARIN SOD (PORCINE) 5000 UNITS/ML VIAL SQ SCH ×3 (05:15→21:39)
[2018-11-21] MEDS: CEFEPIME HCL 2 GM in D5W MINI-BAG PLUS 50 ML IV SCH ×2 (05:15→15:55)
[2018-11-21 06:11] LABS: HEMATOCRIT 26.6 % (42.0-52.0); HEMOGLOBIN 8.8 g/dl (13.5-17.5); MEAN CORPUSCULAR HEMOGLOBIN 26.7 pg (27.0-33.0); MEAN CORPUSCULAR HGB CONC 33.1 g/dl (32.0-36.5); MEAN CORPUSCULAR VOLUME 80.9 fl (80.0-96.0); PLATELET COUNT, AUTOMATED 559 10^3/uL (150-450); RED BLOOD COUNT 3.29 10^6/uL (4.30-6.10); WHITE BLOOD COUNT 29.1 10^3/uL (4.0-10.0)
[2018-11-21] MEDS: NS 1,000 ML IV SCH (06:13)
[2018-11-21 06:40] LABS: CREATININE FOR GFR 1.82 MG/DL (0.70-1.30); POTASSIUM SERUM 3.8 MEQ/L (3.5-5.1)
--- NOTE | 2018-11-21 10:02 | IPNPDOC ---
Date Seen The patient was seen on 11/21/18. Progress Note SUBJECTIVE: Patient appear well without any pain or discomfort today. Tmax 101.6 at 8PM yesterday evening but had been afebrile since. Leukocytosis downtrending WBC 29 today. OBJECTIVE PHYSICAL EXAMINATION: VITAL SIGNS: Please see below. General: No acute distress, Alert Eyes: Normal sclera, EOMI, DONNY HENT: Atraumatic, neck supple, moist mucous membranes Cardiovascular: Normal rate, normal rhythm. No murmurs appreciated. Pulmonary: Clear to auscultation b/l, no wheezing GI: Soft, nontender Skin: Warm and dry. Diffuse uriticarial rash mostly in arms and legs with excoriations in forearms. Neuro: CN grossly intact. No focal deficits. Strengths equal b/l. Psych: oriented x 3 LABORATORY DATA, IMAGING STUDIES, MICROBIOLOGY: Please see below. DVT prophylaxis ordered?: Lovenox ASSESSMENT AND PLAN: 1. Sepsis - Concern for intraabdominal infection vs osteomyelitis as the source vs. toxic shock syndrome. - Suspecting C. diff given significant leukocytosis, however stool study is negative. - On presentation WBC 48, lactic acid 4.6, Tmax 101.3. - On broad spectrum Abx vancomycin, cefepime and clindamycin. - Blood and urine cultures negative to date. 2. Cerebral palsy - PT as tolerated. 3. R. foot osteomyelitis - Hold augmentin at this time due to drug allergy. - Started on vancomycin, cefepime and clindamycin. - Wound culture from previous admission grew Proteus and Corynebacterium and was previously on vancomycin and Rocephin. - f/u blood cultures. - Difficult to palpate pulse in R. foot, Consult placed for Dr. Massey for evaluation. 4. Diffuse urticarial rash - Drug reaction/allergy vs. HSP/IgA vasculitis given abdominal pain and DEBORAH - Started on Benadryl IV as needed for itch/rash. - UA noted. Urine protein/cr ordered. 5. DEBORAH - dehydration with also consideration for possible vasculitis/nephropathy from antibiotics. - IVF hydration. Monitor kidney functions. - Kidney function improving. 6. Thrombocytosis - Platelets on presentation 917, suspect reactive thrombocytosis from infection. - Trending down. Patient is high risk given sepsis with significant leukocytosis. VS, I&O, 24H, Fishbone Vital Signs/I&O Vital Signs Date Time Temp Pulse Resp B/P (MAP) Pulse Ox O2 Delivery O2 Flow Rate FiO2 11/21/18 07:49 97.4 85 18 94/60 (71) 98 11/19/18 14:22 Room Air l I&O- Last 24 Hours up to 6 AM 11/21/18 05:59 Intake Total 3180 ml Output Total 1935 ml Balance 1245 ml Laboratory Data 24H LABS Laboratory Tests 2 11/20/18 13:32: Troponin I 0.04# 11/20/18 21:39: Troponin I 0.05# 11/21/18 01:44: Urine Random Osmolality 379L, Urine Random Creatinine 60.6, Urine Random Sodium 60, Urine Random Potassium 23.4, Urine Random Chloride 83, Urine Random Urea Nitrogen 417 11/21/18 05:59: Troponin I 0.03#, Nucleated Red Blood Cells % (auto) 0.1H, Anion Gap 10, Glomerular Filtration Rate 42.0L, Blood Urea Nitrogen 33H, Creatinine 1.82H, Sodium Level 133L, Potassium Level 3.8, Chloride Level 105, Carbon Dioxide Level 18L, Calcium Level 7.0L 11/21/18 09:11: Vancomycin Level Trough 11.0 CBC/BMP Laboratory Tests 11/21/18 05:59 Red Blood Count 3.29 L, Mean Corpuscular Volume 80.9, Mean Corpuscular Hemoglobin 26.7 L, Mean Corpuscular Hemoglobin Concent 33.1, Red Cell Distribution Width 15.7 H, Calcium Level 7.0 L Microbiology Microbiology 11/20/18 Blood Culture - Preliminary, Resulted No growth after 24 hours . All specim... 11/19/18 Blood Culture - Preliminary, Resulted No growth after 24 hours . All specim... 11/19/18 Blood Culture - Preliminary, Resulted No growth after 24 hours . All specim... 11/19/18 Gastrointestinal Tract Panel (PCR) - Final, Complete 11/19/18 Gram Stain - Final, Resulted 11/19/18 Sputum Culture, Resulted Pending 11/19/18 Urine Culture - Final, Complete ROXY PALACIOS MD Nov 21, 2018 10:01
[2018-11-21] MEDS: VANCOMYCIN HCL 750 MG, VIAL MATE ADAPTER 1 EACH in D5W 250 ML IV SCH (10:03)
--- NOTE | 2018-11-21 10:30 | PHACANCOPD ---
PHARMACY VANCOMYCIN DOSING Pt Demographics Demographics Patient Age:53 , Weight:81.700 , Gender: male Adjusted Body Weight Date: 11/19/18, Adjusted Body Weight: Kg Events Past 24 Hours Events Past 24 Hours: YES: Change in CrCl; NO: Dialysis, Diuretic Therapy, Fever, Elevation in WBC, Pending Diagnostics, Pending Procedures, Other Vancomycin Vancomycin indication: SEPSIS Vancomycin Target Ranges: 15-20 mcg/ml Vancomycin Load Y/N: Yes Load Dose Date Time Vancomycin Load Dose: 1000mg Date: 11/19 Time: ~16:00 Vancomycin Dose Date: 11/21/18. Current Vancomycin Dose: [1G Q24H @09] Date: 11/20/18. Current Vancomycin Dose: [750mg IV q24h @09] Intermittent Dosing?: No Labs Labs Item Value Date Time White Blood Count 48.4 10^3/uL *H 11/19/18 1403 White Blood Count 53.6 10^3/uL *H 11/19/18 2051 White Blood Count 34.1 10^3/uL *H 11/20/18 0617 White Blood Count 29.1 10^3/uL H 11/21/18 0559 Creatinine 1.82 MG/DL H 11/21/18 0559 Vancomycin Level Trough 11.0 UG/ML 11/21/18 0911 Micro Microbiology 11/20/18 Blood Culture - Preliminary, Resulted No growth after 24 hours . All specim... 11/19/18 Blood Culture - Preliminary, Resulted No growth after 24 hours . All specim... 11/19/18 Blood Culture - Preliminary, Resulted No growth after 24 hours . All specim... 11/19/18 Gastrointestinal Tract Panel (PCR) - Final, Complete 11/19/18 Gram Stain - Final, Resulted 11/19/18 Sputum Culture, Resulted Pending 11/19/18 Urine Culture - Final, Complete Creatinine Clearance Date:11/21/18. Creatinine Clearance: [44 ml/min]. Date:11/20/18. Creatinine Clearance: [~27 ml/min]. Pending Labs vanco trough scheduled for 11/22 0800 Assessment and Plan Maintaining Current Dose?: No Reason for dose change: Trough too low Pharmacist Note Pharmacist Note Date: 11/21/18. Pharmacist note: vanco trough came back at 11, increased dose to 1G Q24H, trough ordered for 11/22 @0800. Will continue to monitor and make adjustment as needed. Date: 11/20/18. Pharmacist note: Dr damian changed dose to 750mg q24h. Trough ordered for 11-21 @0800. Will monitor and make adjustments as needed. Otis Santiago Pharm.D. Nov 21, 2018 10:30
--- NOTE | 2018-11-21 11:00 | CCN ---
DATE: 11/21/2018 The patient was seen, examined this morning during bedside rounds. The patient did have a fever overnight with a maximum temperature (t-max) of 101.6. This morning, he is afebrile. His blood pressures have remained stable overnight on maintenance fluids with normal saline at 100 mL an hour. He denies any significant complaints this morning. Has not had any chest pain. No coughing. No increased shortness of breath. He denies any abdominal pain. No nausea or vomiting. He has had some episodes of diarrhea overnight, at least three episodes of loose mucoid stool, which is not reported to be bloody and no melena. PHYSICAL EXAMINATION: Maximum temperature (t-max) 101.6, current temperature 98.6, pulse 84, respirations 20, blood pressure 108/55, oxygen saturation 98% on room air. Input 2.7 liters, output 1.6 liters, net positive 1.1 liters. General: The patient is lying in bed, does not appear to be in any acute distress. He is not using any accessory muscles for respirations. HEENT: Normocephalic, atraumatic. Moist mucous membranes. There is no scleral icterus bilaterally. The patient has some flaky dry skin on his face and neck. Pupils are equal and reactive to light bilaterally. Neck is supple. Trachea is midline. No palpable cervical adenopathy. Cardiovascular: Regular rate and rhythm. Normal S1, S2. Unable to appreciate any murmurs. Pulmonary: Diminished breath sounds bilaterally but no significant rhonchi, wheezing or rales. Abdomen is soft, obese. There is no tenderness to palpation bilaterally. Bowel sounds are present. Extremities: There is some muscle wasting in the lower extremities, which appears chronic. His right lower extremity has some mild edema and the right foot is status post transmetatarsal amputation with a bandage overlying. In his upper extremities. There is some pitting edema bilaterally. On the skin he continues to have a diffuse rash, which is erythematous but appears less raised than previously. He does have some increased erythema and discoloration in his right lower extremity compared to the left. LABORATORY DATA: WBC 29.1, hemoglobin 8.8, platelets 559. Chemistry: Sodium is 133, potassium 3.8, chloride is 105, bicarbonate 18, BUN 33, creatinine 1.82, glucose is 92, procalcitonin was 9.96, urine osm 379. Urine creatinine 60.6. Urine sodium is 60. Urine potassium is 23, urine chloride 83, urine urea is 417. ASSESSMENT/PLAN: The patient is a 53-year-old male with a past medical history of cerebral palsy and a recent admission for osteomyelitis in the right foot status post transmetatarsal amputation. The patient's wound cultures had grown Corynebacterium, Proteus, coagulase-negative Staphylococcus. He was initially treated with the vancomycin and ceftriaxone and discharged to rehab with Augmentin. While at rehab facility, he had worsening diffuse rash, as well as some nausea and abdominal pain. The patient was readmitted to [facility] and was noted to have fevers, leukocytosis and acute renal failure. The patient also had significant lactic acidosis, likely secondary to sepsis, as well as some episodes of hypotension. He was given IV fluids with improvement in his blood pressure, as well as a dose of epinephrine IM for possible anaphylactoid reaction. Sepsis with lactic acidosis, likely secondary to osteomyelitis with possible localized cellulitis. The patient also had some abdominal plain initially and nausea but a CT abdomen and pelvis did not show any significant findings and his gastrointestinal panel was negative for any infectious etiology, including Clostridium (C.) difficile. Suspect some of his abdominal pain and nausea and may have been due to some anaphylactic reaction, especially given his drug rash and evidence of other end organ damage. - The patient's leukocytosis has improved with broad-spectrum antibiotics. His procalcitonin was significantly elevated suggesting an acute bacterial infection. - We will continue with vancomycin and cefepime, as well as clindamycin as his previous culture did grow coagulase-negative Staphylococcus. will followup with results of his blood culture and if negative would consider discontinuing clindamycin and continue with the vancomycin and cefepime only. - Would continue to trend a repeat procalcitonin to continue to monitor response to antibiotics and aid in eventual de-escalation and discontinuation - Would discontinue the maintenance fluids of normal saline as the patient does appear to have some increased edema in his upper extremities. He does also have some hypoalbuminemia, likely due to protein malnourishment. - Continue to monitor his blood pressure and urine output. If the patient becomes hypotensive, would give boluses of normal saline as needed. - Appreciate surgery recommendations. Can consider imaging of his right lower extremity for further evaluation for possible osteomyelitis Acute kidney injury with evidence of hyponatremia. The patient's urine studies suggest intrinsic DEBORAH, which may be interstitial nephritis secondary to the antibiotic reaction, as well as a component of a possible prerenal leading to ATN. His renal function appears to be improving. Would continue to monitor his renal function and urine output. - Continue to monitor his electrolytes and his sodium. - Would continue to avoid nephrotoxins as possible. Deep vein thrombosis (DVT) prophylaxis. Heparin. FULL CODE. Total critical care time spent, not including procedures, approximately 35 minutes. Please do not hesitate to call if any further questions or concerns. MTDD
[2018-11-21] MEDS: VANCOMYCIN HCL 1,000 MG, VIAL MATE ADAPTER 1 EACH in D5W 250 ML IV SCH (11:05)
[2018-11-21] MEDS ORDERED: SLF 3 ML SYR IV PRN (16:30)
[2018-11-21] MEDS: ACETAMINOPHEN TAB 650MG DOSE (2X325MG) PO PRN ×2 (18:26→21:38)
[2018-11-21] MEDS: SLF 3 ML SYR IV SCH (21:39)
[2018-11-22] MEDS: CLINDAMYCIN 600 MG in IV 1 EA IV SCH ×4 (02:00→21:06)
[2018-11-22 04:00] VITALS: BP 128/62
[2018-11-22] MEDS: SLF 3 ML SYR IV SCH ×3 (05:08→21:08)
[2018-11-22] MEDS: HEPARIN SOD (PORCINE) 5000 UNITS/ML VIAL SQ SCH ×3 (05:08→21:08)
[2018-11-22] MEDS: CEFEPIME HCL 2 GM in D5W MINI-BAG PLUS 50 ML IV SCH ×2 (05:08→16:06)
--- NOTE | 2018-11-22 06:23 | CR.PDOC ---
General Surgery Consultation Date of Consultation 11/20/18 History and Physical CONSULT REPORT FOR: hospitalist service REASON FOR CONSULTATION: abdominal pain, sepsis HISTORY OF PRESENT ILLNESS: Was asked to see the patient hepatic artery to help with the patient's diagnosis. He is currently admitted to the ICU. He was recently admitted in our institution for osteomyelitis in the right foot and had transmetatarsal amputation performed. He still has the sutures in place. This appears swollen. He was discharged a few days ago to rehabilitation. While there he started developing nausea and severe abdominal pain and discomfort. Patient also reports some diarrhea. He was admitted overnight with severe abdominal pain, highly hypotensive. He was found to have highly elevated white cell count to 41,000. At the time so the patient patient reports his abdominal pain is much improved. He is now fairly hemodynamically stable. He is not on any pressors. PAST MEDICAL HISTORY: 1. Cerebral palsy 2. Osteomyelitis of the right foot status post transmetatarsal amputation by Dr. Massey. PAST SURGICAL HISTORY: INCLUDES: 1. Right lower extremity transmetatarsal amputation No abdominal surgeries. ALLERGIES: Please see below. . HOME MEDICATIONS: Please see below. REVIEW OF SYSTEMS: GENERAL: Patient reports having intermittent fevers and chills. HEENT: [Denies blurred vision and double vision. Denies ear symptoms. Denies hoarseness]. NECK: Denies any neck pain CARDIOVASCULAR: [Denies chest pain and palpitations]. MUSCULOSKELETAL: Recent transmetatarsal amputation. Reports swelling at the site but no drainage. SKIN: Has recently developed some skin rash widely disseminated. NEUROLOGIC: [Denies headache, stroke and transient ischemic attack]. HEMATOLOGY/ONCOLOGY: [Denies bleeding or clotting disorder]. HEART: [Denies any chest pains, palpitations, paroxysmal dyspnea, orthopnea]. PULMONARY: [Denies chronic cough, dyspnea and wheezing]. GASTROINTESTINAL: See HPI. GENITOURINARY: [Denies dysuria, frequency, hematuria and nocturia]. ENDOCRINE: [Denies polydipsia, polyphagia, polyuria, heat or cold intolerance]. INFECTIOUS: Patient has been on antibiotics for osteomyelitis. NUTRITION: Reports feeling hungry.. PHYSICAL EXAMINATION: VITALS SIGNS: Please see below. GENERAL APPEARANCE: Patient now comfortable. SKIN: [Warm and moist]. HEENT: [Normocephalic, atraumatic. [place] palpebral conjunctiva, anicteric sclerae. Lips and mucosa appear moist]. NECK: [Supple, no thyromegaly. No obvious jugular venous distention]. LUNGS: [Clear to auscultation bilaterally. No wheezing appreciated]. HEART: [No chest wall abnormalities. Regular rate and rhythm with no murmurs appreciated]. ABDOMEN: Abdomen is round, soft, minimally distended. Minimally tender over the epigastric area no rebound or guarding. EXTREMITIES: Right foot transmetatarsal amputation. Sutures still in place. No gross drainage or erythema of the foot itself appears swollen ANCILLARIES: . LABORATORY DATA: Please see below. IMAGING STUDIES: CT abdomen and pelvis 1. Nonobstructing intrarenal calculi. 2. Few moderately prominent inguinal and pelvic sidewall (right greater than left) lymph nodes of uncertain etiology or significance. 3. No further acute abdominopelvic pathology appreciated. No ascites. No focal inflammatory stranding. No mass identified. IMPRESSION AND PLAN: Sepsis Abdominal pain Right foot With possible osteomyelitis. The tenderness on the patient is no longer having any abdominal discomfort. He denies any nausea or vomiting. Patient reports this came all of a sudden. He did come with significant leukocytosis consistent with him being in sepsis this is gone back down but not normal yet. His abdominal exam is pain benign. His CT scan does not show any acute abdominopelvic pathology though he might have some gallbladder sludge without secondary signs of gallbladder inflammation so he might have had biliary colic attack. Unclear why he has the significant leukocytosis. He is negative for C. difficile colitis on GI panel though he was complaining of diarrhea prior to the episode of the abdominal pain. He also has some mild swelling on the right foot status post TMA. This was done by Dr. Massey in September. The sutures are still present. This is not overly warm or cellulitic in appearance. I did not see any drainage at the incision line. Suggest contacting Dr. Massey to further evaluate this. I usually do not see that significant leukocytosis with some chronic osteomyelitis. Nevertheless it seems to be improving with him. Antibiotics and IV fluid hydration. I'm not sure if there is anything I could offer for her for surgical input for evaluation at this point is his abdominal pain seems to have gotten better. Vital Signs Vital Signs Date Time Temp Pulse Resp B/P (MAP) Pulse Ox O2 Delivery O2 Flow Rate FiO2 9/3/19 04:00 99.3 80 20 128/62 (84) 98 11/19/18 14:22 Room Air I&Os I&O- Last 24 Hours up to 6 AM 11/22/18 06:00 Intake Total 1160 ml Output Total 1450 ml Balance -290 ml Laboratory Data Labs 24H Laboratory Tests 2 11/21/18 09:11: Vancomycin Level Trough 11.0 Microbiology Microbiology 11/20/18 Blood Culture - Preliminary, Resulted No Growth after 48 hours. All Specime... 11/19/18 Blood Culture - Preliminary, Resulted No Growth after 48 hours. All Specime... 11/19/18 Blood Culture - Preliminary, Resulted No Growth after 48 hours. All Specime... 11/19/18 Gastrointestinal Tract Panel (PCR) - Final, Complete 11/19/18 Gram Stain - Final, Resulted 11/19/18 Sputum Culture, Resulted Pending 11/19/18 Urine Culture - Final, Complete Home Medications Scheduled Doxycycline Hyclate (Doxycycline Hyclate) 100 Mg Tablet, 100 MG PO BID L.acidoph/L.bulg/B.bif/S.therm (Nina-Bid Caplet) 1 Each Tablet, 1 EA PO BIDWM Scheduled PRN Acetaminophen (Acetaminophen) 325 Mg Tablet, 650 MG PO Q4H PRN for PAIN, (Reported) Bisacodyl (Bisacodyl) 10 Mg Supp.rect, 10 MG IN DAILY PRN for CONSTIPATION, (Re ported) Diphenhydramine HCl (Benadryl) 25 Mg Capsule, 25 MG PO Q6HP PRN for ITCHING Magnesium Hydroxide (Milk of Magnesia) 400 Mg/5 Ml Oral.susp, 2,400 MG PO DAILY PRN for CONSTIPATION, (Reported) Ondansetron HCl (Ondansetron HCl) 4 Mg Tablet, 4 MG PO QID PRN for NAUSEA OR VOMITING, (Reported) Sodium Phosphate,Lewis-Dibasic (Fleet Enema) 133 Ml Enema, 1 NILSON IN DAILY PRN for CONSTIPATION, (Reported) Allergies Coded Allergies: amoxicillin (Verified Allergy, Intermediate, rash, 11/19/18) clavulanic acid (Verified Allergy, Intermediate, rash, 11/19/18) naproxen (Verified Allergy, Unknown, SOB, 11/19/18) DEREK WILL MD Nov 22, 2018 06:20
[2018-11-22 08:00] VITALS: BP 113/58
[2018-11-22 09:10] LABS: HEMATOCRIT 29.4 % (42.0-52.0); HEMOGLOBIN 9.6 g/dl (13.5-17.5); MEAN CORPUSCULAR HEMOGLOBIN 26.5 pg (27.0-33.0); MEAN CORPUSCULAR HGB CONC 32.7 g/dl (32.0-36.5); MEAN CORPUSCULAR VOLUME 81.2 fl (80.0-96.0); PLATELET COUNT, AUTOMATED 505 10^3/uL (150-450); RED BLOOD COUNT 3.62 10^6/uL (4.30-6.10); WHITE BLOOD COUNT 22.3 10^3/uL (4.0-10.0)
[2018-11-22 09:37] LABS: CALCIUM LEVEL 7.2 MG/DL (8.5-10.1); CREATININE FOR GFR 1.64 MG/DL (0.70-1.30); GLOMERULAR FILTRATION RATE 47.4 (>56)
[2018-11-22] MEDS: VANCOMYCIN HCL 1,000 MG, VIAL MATE ADAPTER 1 EACH in D5W 250 ML IV SCH (09:43)
--- NOTE | 2018-11-22 11:47 | IPNPDOC ---
Date Seen The patient was seen on 11/22/18. Progress Note Vascular Surgery Dr Massey. HPI: 53year oldM S/P Rt TMA as per Dr Massey 11/14/18. Dr Massey was consulted 11/19/18 regarding recent amputation. Vascular Surgery continues to follow the pt's Rt TMA wound. PE: GEN: 53yoM. No acute distress. Alert and oriented x 3, interactive. HEENT: Normocephalic, atraumatic. Moist mucous membranes. CHEST: Regular rate and rhythm, +S1, +S2 LUNGS: Clear to auscultation bilaterally. No wheezes, rales, or rhonchi. ABD: Round, soft, non-tender, non-distended. EXT: Rt TMA wound with sutures and trey intact. Diffuse mild erythema of the Rt foot area is noted. There appears to be yellowish drainage on the bandage from around the Rt ankle area where the skin appears to be macerated. No open lesions are noted. A&P: 1. Rt foot wound. RLE angiogram 11/03/[address] Massey no intervention necessary. S/P Rt foot debridement as per Dr Massey 11/03/18. S/P Rt TMA 11/04/[address] Massey. S/P TMA revision and flap closure 11/14/18. No reports available at this time. The pt has been evaluated and followed by Dr Massey. The pt's wound examined as per Dr Massey. Plan as per Dr Massey. IV antibiotics as per Hospitalist service. Plan for sutu res and trey to remain in place another 14 days. Dressing changes with Xeroform over surgical site with dry dressing. Continue to keep the area clean and dry. Monitor. VS, I&O, 24H, [facility] Vital Signs/I&O Vital Signs Date Time Temp Pulse Resp B/P (MAP) Pulse Ox O2 Delivery O2 Flow Rate FiO2 11/22/18 08:00 98.6 93 20 113/58 (76) 99 11/19/18 14:22 Room Air I&O- Last 24 Hours up to 6 AM 11/22/18 05:59 Intake Total 1360 ml Output Total 1600 ml Balance -240 ml Laboratory Data 24H LABS Laboratory Tests 2 11/22/18 08:59: Nucleated Red Blood Cells % (auto) 0.1H, Anion Gap 9, Glomerular Filtration Rate 47.4L, Blood Urea Nitrogen 29H, Creatinine 1.64H, Sodium Level 135L, Potassium Level 3.0#L, Chloride Level 105, Carbon Dioxide Level 21, Calcium Level 7.2L, Random Vancomycin Level 15.6 CBC/BMP Laboratory Tests 11/22/18 08:59 Red Blood Count 3.62 L, Mean Corpuscular Volume 81.2, Mean Corpuscular Hemogl obin 26.5 L, Mean Corpuscular Hemoglobin Concent 32.7, Red Cell Distribution Width 16.7 H, Calcium Level 7.2 L Microbiology Microbiology 11/20/18 Blood Culture - Preliminary, Resulted No Growth after 48 hours. All Specime... 11/19/18 Blood Culture - Preliminary, Resulted No Growth after 48 hours. All Specime... 11/19/18 Blood Culture - Preliminary, Resulted No Growth after 72 hours. All specime... 11/19/18 Gastrointestinal Tract Panel (PCR) - Final, Complete 11/19/18 Gram Stain - Final, Complete 11/19/18 Sputum Culture - Final, Complete 11/19/18 Urine Culture - Final, Complete Attending Note Attending Note VASCULAR SURGICAL ATTENDING NOTE: Dr. Alicja Massey M.D. ASSESSMENT: Patient is a 53-year-old male status post right transmetatarsal amputation secondary to gangrene of the toes and osteomyelitis of the fifth toe. Patient has been admitted with abdominal pain, diarrhea and elevated white count. Patient's right transmetatarsal amputation wound is stable and is healing well albeit slowly. PLAN: No intervention is required for the right transmetatarsal amputation wound and the patient will continue with Vaseline gauze dressing with dry dressing over the Vaseline gauze daily. The trey and nylon sutures will remain in place until patient is seen as an out patient in 1-2 weeks. Marcell Garland was the attending vascular surgeon for this patient encounter. The patient was seen, examined, interviewed and evaluated independently by Dr. Mi Massey M.D. was fully available during the consultation evaluation. All aspects of the patient interview, examination, medical decision making process, and medical care plan development were reviewed and approved by Dr. J Moorahat Massey M.D. is aware and concurs with the plan as stated in the body of this note and will attest to such by his/her cosignature. Nidia Lee Nov 22, 2018 11:47 Alejandro Massey MD Nov 22, 2018 15:23
[2018-11-22 12:00] VITALS: BP 119/55
[2018-11-22] MEDS: ACETAMINOPHEN TAB 650MG DOSE (2X325MG) PO PRN (12:00)
[2018-11-22 16:00] VITALS: BP 113/60
[2018-11-22 20:00] VITALS: BP 102/52
--- NOTE | 2018-11-22 20:07 | IPNPDOC ---
Text Note Date of Service The patient was seen on 11/22/18. NOTE Mr. Whitehead generally continues to do well. His abdominal pain is resolved. He had had some intermittent diarrhea but this appears to have resolved. He continues with leukocytosis. Patient apparently developed reported reinfection at the site of his transmetatarsal amputation. Objective: Physical exam General: The patient is awake and alert and conversant. 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 He relates he redeveloped difficulty after his outpatient oral antibiotics were stopped. HENT: Neck remains supple with no adenopathy or thyromegaly. Cardiovascular: Regular rate and rhythm with a normal S1 and S2 and no appreciable murmur or bruit. Respiratory: Clear to auscultation with no rhonchi, rales, wheezes or cough. Abdomen: Soft, nontender, nondistended. Extremities: Transmetatarsal site remains intact with no excessive drainage to the dressing. There is no remarkable erythema or swelling. Neuro: There is otherwise no gross neuromotor or sensory deficit; patient does have cerebral palsy Assessment/Plan: 1. Sepsis. Concerns had been for intra-abdominal infection, an infectious colitis, osteomyelitis. Potential sources appear negative. Patient is gradually defervescing. Cultures remain negative to date. Leukocytosis persists. Patient continues on empiric broad-spectrum antibiotic therapy inclusive of vancomycin, cefepime and clindamycin. Patient has had intermittent diarrhea that appears to stop for now; clindamycin can be irritating to the GI tract. 2. Right foot osteomyelitis. Patient had positive wound cultures from this site on his last hospital stay; Proteus and Corynebacteria were isolated. Patient continues on his antibiotic regimen; he had previously been transitioned to oral Augmentin but appears to have redeveloped worsening of his operative site when it was stopped. 3. Rash. The patient appears to have had a drug rash. It has been described as urticarial. I do not note hive-like lesions currently. I do note coarseness with excoriations. Benadryl has been as effective for his symptoms. VS,Fishbone, I+O VS, Fishbone, I+O Laboratory Tests 11/22/18 08:59 Red Blood Count 3.62 L, Mean Corpuscular Volume 81.2, Mean Corpuscular Hemoglobin 26.5 L, Mean Corpuscular Hemoglobin Concent 32.7, Red Cell Distribution Width 16.7 H, Calcium Level 7.2 L Vital Signs Date Time Temp Pulse Resp B/P (MAP) Pulse Ox O2 Delivery O2 Flow Rate FiO2 11/22/18 16:00 98.0 76 18 113/60 (77) 98 11/19/18 14:22 Room Air I&O- Last 24 Hours up to 6 AM 11/22/18 06:00 Intake Total 1460 ml Output Total 1950 ml Balance -490 ml AUGIE REGALADO MD Nov 22, 2018 20:07
[2018-11-22 23:59] VITALS: BP 90/54
[2018-11-23] MEDS: CLINDAMYCIN 600 MG in IV 1 EA IV SCH ×4 (01:56→20:53)
[2018-11-23 04:00] VITALS: BP 96/56
[2018-11-23] MEDS: SLF 3 ML SYR IV SCH ×3 (05:54→20:53)
[2018-11-23] MEDS: HEPARIN SOD (PORCINE) 5000 UNITS/ML VIAL SQ SCH ×3 (05:54→20:53)
[2018-11-23] MEDS: CEFEPIME HCL 2 GM in D5W MINI-BAG PLUS 50 ML IV SCH ×2 (05:56→17:20)
[2018-11-23 06:59] LABS: HEMATOCRIT 29.1 % (42.0-52.0); HEMOGLOBIN 9.6 g/dl (13.5-17.5); MEAN CORPUSCULAR HEMOGLOBIN 27.4 pg (27.0-33.0); MEAN CORPUSCULAR VOLUME 83.1 fl (80.0-96.0); PLATELET COUNT, AUTOMATED 462 10^3/uL (150-450); WHITE BLOOD COUNT 22.7 10^3/uL (4.0-10.0)
[2018-11-23 07:30] LABS: BLOOD UREA NITROGEN 25 MG/DL (7-18); CALCIUM LEVEL 7.1 MG/DL (8.5-10.1); CARBON DIOXIDE LEVEL 23 MEQ/L (21-32); CHLORIDE LEVEL 105 MEQ/L (98-107); CREATININE FOR GFR 1.26 MG/DL (0.70-1.30); GLOMERULAR FILTRATION RATE > 60.0 (>56); GLUCOSE, FASTING 91 MG/DL (70-100); SODIUM LEVEL 139 MEQ/L (136-145)
[2018-11-23 08:00] VITALS: BP 118/55
[2018-11-23] MEDS ORDERED: POTASSIUM CHLORIDE 10 MEQ SR TABLET PO ONE (08:00)
[2018-11-23] MEDS: VANCOMYCIN HCL 1,000 MG, VIAL MATE ADAPTER 1 EACH in D5W 250 ML IV SCH (10:03)
[2018-11-23] MEDS ORDERED: POTASSIUM CHLORIDE 10% LIQ 20 MEQ/15 ML UDC PO ONE (10:30)
--- NOTE | 2018-11-23 11:40 | IPNPDOC ---
Date Seen The patient was seen on 11/23/18. Progress Note Vascular Surgery Dr Massey. HPI: 53year oldM S/P Rt TMA as per Dr Massey 11/14/18. Dr Massey was consulted 11/19/18 regarding recent amputation. Vascular Surgery continues to follow the pt's Rt TMA wound. PE: GEN: 53yoM. No acute distress. Alert and oriented x 3. HEENT: Normocephalic, atraumatic. Moist mucous membranes. CHEST: Regular rate and rhythm, +S1, +S2 LUNGS: Clear to auscultation bilaterally. No wheezes, rales, or rhonchi. ABD: Round, soft, non-tender, non-distended. EXT: Rt TMA wound with sutures and trey intact. Diffuse mild erythema of the Rt foot area extending tp the ankle area is noted. There appears to be yellowish drainage on the bandage from around the Rt /foot ankle area. Clean dressing applied. A&P: 1. Rt foot wound. RLE angiogram 11/03/[address] Massey no intervention necessary per preliminary verbal report. S/P Rt foot debridement as per Dr Massey 11/03/18. S/P Rt TMA 11/04/[address] Massey. S/P TMA revision and flap closure 11/14/18. No reports available at this time. The pt has been evaluated and followed by Dr Massey. The pt's wound examined as per Dr Massey. The pt is afebrile. Leukocytosis downtrending. BC x 3 neg. Plan as per Dr Massey. IV antibiotics as per Hospitalist service. Plan for sutures and trey to remain in place another 14 days. Dressing changes with Xeroform over surgical site with dry dressing. Continue to keep the area clean and dry. D/W Dr Massey, If concerns for cont'd OM, recommend MRI foot. Monitor. VS, I&O, 24H, Fishbone Vital Signs/I&O Vital Signs Date Time Temp Pulse Resp B/P (MAP) Pulse Ox O2 Delivery O2 Flow Rate FiO2 11/23/18 08:00 97.5 91 22 118/55 (76) 100 11/19/18 14:22 Room Air I&O- Last 24 Hours up to 6 AM 11/23/18 06:00 Intake Total 1586 ml Output Total 2985 ml Balance -1399 ml Laboratory Data 24H LABS Laboratory Tests 2 11/23/18 06:47: Nucleated Red Blood Cells % (auto) 0.1H, Anion Gap 11, Glomerular Filtration Rate > 60.0, Lactic Acid Level 2.3*H, Blood Urea Nitrogen 25H, Creatinine 1.26, Sodium Level 139, Potassium Level 3.0L, Chloride Level 105, Carbon Dioxide Level 23, Calcium Level 7.1L 11/23/18 11:17: CBC/BMP Laboratory Tests 11/23/18 06:47 Red Blood Count 3.50 L, Mean Corpuscular Volume 83.1, Mean Corpuscular Hemoglobin 27.4, Mean Corpuscular Hemoglobin Concent 33.0, Red Cell Distribution Width 17.5 H, Calcium Level 7.1 L Microbiology Microbiology 11/20/18 Blood Culture - Preliminary, Resulted No Growth after 72 hours. All specime... 11/19/18 Blood Culture - Preliminary, Resulted No Growth after 72 hours. All specime... 11/19/18 Blood Culture - Preliminary, Resulted No Growth after 72 hours. All specime... 11/19/18 Gastrointestinal Tract Panel (PCR) - Final, Complete 11/19/18 Gram Stain - Final, Complete 11/19/18 Sputum Culture - Final, Complete 11/19/18 Urine Culture - Final, Complete Nidia Lee Nov 23, 2018 11:40
[2018-11-23 12:00] VITALS: BP 112/58
[2018-11-23 16:00] VITALS: BP 110/71
--- NOTE | 2018-11-23 17:49 | IPNPDOC ---
Text Note Date of Service The patient was seen on 11/23/18. NOTE Mr. Whitehead overall continues well. There had been concern for advancing infect ion to the side of his transmetatarsal amputation. He has remained remarkably stable. Objective: Physical exam: HENT: Neck remains supple with no adenopathy or thyromegaly. Cardiovascular: Regular rate and rhythm with a normal S1 and S2 and no appreciable murmur or bruit. Respiratory: Clear to auscultation with no rhonchi, rales, wheezes or cough. Abdomen: Soft, nontender, nondistended. Extremities: Transmetatarsal site remains intact with no excessive drainage to the dressing. There is no remarkable erythema or swelling. Neuro: There is otherwise no gross neuromotor or sensory deficit; patient does have cerebral palsy. Skin: Patient has a resolving drug exanthem involving primarily his right upper extremity. ASSESSMENT/PLAN: 1. Sepsis. Concerns had been for intra-abdominal infection, an infectious colitis, osteomyelitis. Cultures are negative for growth on 3 occasions. Patient has been afebrile. Leukocytosis persists, but shows downward trend. Patient continues on empiric broad-spectrum antibiotic therapy inclusive of vancomycin, cefepime and clindamycin. Patient has had intermittent diarrhea that appears to have stopped for now-patient has been again ruled out for C. difficile colitis. Consider that Clindamycin can be irritating to the GI tract. Sepsis is otherwise resolved and we can likely transition this patient to an oral antibiotic regimen. 2. Right foot osteomyelitis. Patient had positive wound cultures from this site on his last hospital stay; Proteus and Corynebacteria were isolated. Patient continues on his antibiotic regimen; he had previously been transitioned to oral Augmentin but appears to have redeveloped worsening of his operative site when it was stopped. If there is residual concern for foot osteomyelitis. We will recheck a sedimentation rate and C-reactive protein. If there is a change in his overall trend we will evaluate by MRI. Treatment regimen will be determined from there. 3. Rash. The patient appears to have had a drug rash. It has been described as urticarial. I do not note hive-like lesions currently. I do note coarseness with excoriations. Benadryl has been effective for his symptoms. VS,Fishbone, I+O VS, Fishbone, I+O Laboratory Tests 11/23/18 06:47 Red Blood Count 3.50 L, Mean Corpuscular Volume 83.1, Mean Corpuscular Hemoglobin 27.4, Mean Corpuscular Hemoglobin Concent 33.0, Red Cell Distribution Width 17.5 H, Calcium Level 7.1 L Vital Signs Date Time Temp Pulse Resp B/P (MAP) Pulse Ox O2 Delivery O2 Flow Rate FiO2 11/23/18 16:00 97.0 90 20 110/71 (84) 95 11/19/18 14:22 Room Air I&O- Last 24 Hours up to 6 AM 11/23/18 06:00 Intake Total 1586 ml Output Total 2985 ml Balance -1399 ml AUGIE REGALADO MD Nov 23, 2018 17:49
[2018-11-23 20:00] VITALS: BP 104/54
[2018-11-23 23:59] VITALS: BP 102/56
[2018-11-24] MEDS: CLINDAMYCIN 600 MG in IV 1 EA IV SCH ×3 (02:06→14:07)
[2018-11-24 04:00] VITALS: BP 119/63
[2018-11-24] MEDS: CEFEPIME HCL 2 GM in D5W MINI-BAG PLUS 50 ML IV SCH (05:58)
[2018-11-24] MEDS: SLF 3 ML SYR IV SCH ×3 (05:59→21:16)
[2018-11-24] MEDS: HEPARIN SOD (PORCINE) 5000 UNITS/ML VIAL SQ SCH ×3 (05:59→21:16)
[2018-11-24 08:00] VITALS: BP 107/70
[2018-11-24 09:16] LABS: BLOOD UREA NITROGEN 21 MG/DL (7-18); C REACTIVE PROTEIN QUANTITATIV 2.55 MG/DL (0.00-0.30); CALCIUM LEVEL 7.8 MG/DL (8.5-10.1); CARBON DIOXIDE LEVEL 23 MEQ/L (21-32); CHLORIDE LEVEL 108 MEQ/L (98-107); CREATININE FOR GFR 1.06 MG/DL (0.70-1.30); GLOMERULAR FILTRATION RATE > 60.0 (>56); GLUCOSE, FASTING 88 MG/DL (70-100); POTASSIUM SERUM 3.8 MEQ/L (3.5-5.1); SODIUM LEVEL 139 MEQ/L (136-145); VANCOMYCIN LEVEL TROUGH 16.3 UG/ML (10.0-20.0)
--- NOTE | 2018-11-24 09:22 | PHACANCOPD ---
PHARMACY VANCOMYCIN DOSING Pt Demographics Demographics Patient Age:53 , Weight:75.400 , Gender: male Adjusted Body Weight Date: 11/19/18, Adjusted Body Weight: Kg Events Past 24 Hours Events Past 24 Hours: YES: Change in CrCl; NO: Dialysis, Diuretic Therapy, Fever, Elevation in WBC, Pending Diagnostics, Pending Procedures, Other Vancomycin Vancomycin indication: SEPSIS Vancomycin Target Ranges: 15-20 mcg/ml Vancomycin Load Y/N: Yes Load Dose Date Time Vancomycin Load Dose: 1000mg Date: 11/19 Time: ~16:00 Vancomycin Dose Date: 11/21/18. Current Vancomycin Dose: [1G Q24H @09] Date: 11/20/18. Current Vancomycin Dose: [750mg IV q24h @09] Intermittent Dosing?: No Labs Labs Item Value Date Time Red Blood Count 5.21 10^6/uL 10/30/18 0932 Creatinine 1.06 MG/DL 11/24/18 0804 Creatinine 1.26 MG/DL 11/23/18 0647 Creatinine 1.64 MG/DL H 11/22/18 0859 Vancomycin Level Trough 16.3 UG/ML 11/24/18 0804 Random Vancomycin Level 15.6 UG/ML 11/22/18 0859 White Blood Count 22.7 10^3/uL H 11/23/18 0647 White Blood Count 22.3 10^3/uL H 11/22/18 0859 White Blood Count 29.1 10^3/uL H 11/21/18 0559 White Blood Count 34.1 10^3/uL *H 11/20/18 0617 Vital Signs Label Value Date Time Patient Temperature 97.1 degrees F 11/24/18 0800 Temperature Source Temporal 11/24/18 0800 Patient Temperature 97.3 degrees F 11/24/18 0400 Temperature Source Temporal 11/24/18 0400 Patient Temperature 97.7 degrees F 11/23/18 2359 Temperature Source Temporal 11/23/18 2359 Micro Microbiology 11/20/18 Blood Culture - Preliminary, Resulted No Growth after 72 hours. All specime... 11/19/18 Blood Culture - Preliminary, Resulted No Growth after 72 hours. All specime... 11/19/18 Blood Culture - Preliminary, Resulted No Growth after 72 hours. All specime... 11/19/18 Gastrointestinal Tract Panel (PCR) - Final, Complete 11/19/18 Gram Stain - Final, Complete 11/19/18 Sputum Culture - Final, Complete 11/19/18 Urine Culture - Final, Complete Creatinine Clearance Date:11/21/18. Creatinine Clearance: [44 ml/min]. Date:11/20/18. Creatinine Clearance: [~27 ml/min]. Pending Labs vanco trough scheduled for 11/22 0800 Assessment and Plan Maintaining Current Dose?: Yes Reason for dose change: No Dose Change Pharmacist Note Pharmacist Note 11/24/18: Trough this AM drawn @0804 before next dose at 0900 resulted at 16.3mcg/ml. This level is within our goal of 15-20mcg/ml. Pt is at steady state. At this time I will continue the current dose of Vanco 1G IV Q24H@0900. We will continue to monitor and adjust dose as needed. Date: 11/21/18. Pharmacist note: vanco trough came back at 11, increased dose to 1G Q24H, trough ordered for 11/22 @0800. Will continue to monitor and make adjustment as needed. Date: 11/20/18. Pharmacist note: Dr damian changed dose to 750mg q24h. Trough ordered for 11-21 @0800. Will monitor and make adjustments as needed. GIOVANA MAY PHARMACY Nov 24, 2018 09:22
[2018-11-24 09:32] LABS: HEMATOCRIT 28.7 % (42.0-52.0); MEAN CORPUSCULAR HEMOGLOBIN 26.1 pg (27.0-33.0); MEAN CORPUSCULAR HGB CONC 31.4 g/dl (32.0-36.5); MEAN CORPUSCULAR VOLUME 83.2 fl (80.0-96.0); PLATELET COUNT, AUTOMATED 423 10^3/uL (150-450); RED BLOOD COUNT 3.45 10^6/uL (4.30-6.10); WHITE BLOOD COUNT 19.5 10^3/uL (4.0-10.0)
[2018-11-24] MEDS: VANCOMYCIN HCL 1,000 MG, VIAL MATE ADAPTER 1 EACH in D5W 250 ML IV SCH (09:44)
[2018-11-24 09:55] LABS: ERYTHROCYTE SEDIMENTATION RATE 17 mm/hr (0-20)
[2018-11-24 12:00] VITALS: BP 118/70
[2018-11-24 15:20] VITALS: BP 115/78
--- NOTE | 2018-11-24 17:54 | IPNPDOC ---
Text Note Date of Service The patient was seen on 11/24/18. NOTE Mr. Whitehead overall continues well. There had been concern for advancing infect ion to the side of his transmetatarsal amputation , but this is not clinically evident. He has remained remarkably stable. Objective: Physical exam: HENT: Neck remains supple with no adenopathy or thyromegaly. Cardiovascular: Regular rate and rhythm with a normal S1 and S2 and no appreciable murmur or bruit. Respiratory: Clear to auscultation with no rhonchi, rales, wheezes or cough. Abdomen: Soft, nontender, nondistended. Extremities: Transmetatarsal site remains intact with no excessive drainage to the dressing. There is no remarkable erythema or swelling. Neuro: There is otherwise no gross neuromotor or sensory deficit; patient does have cerebral palsy. Skin: Patient has a resolving drug exanthem involving primarily his right upper extremity, there is some excoriation ASSESSMENT/PLAN: 1. Sepsis. Concerns had been for intra-abdominal infection, an infectious colitis, osteomyelitis. Cultures are negative for growth on 3 occasions. Patient has been afebrile. Leukocytosis persists, but shows downward trend; white blood cell count has come down from 53.6 at admission to 19. Patient has been on empiric broad-spectrum antibiotic therapy inclusive of vancomycin, cefepime and cli ndamycin. Patient has had intermittent diarrhea that appears to have stopped for now-patient has been again ruled out for C. difficile colitis. Consider that Clindamycin can be irritating to the GI tract. Sepsis is otherwise resolved and we can transition this patient to oral antibiotics. We will need to avoid adverse reactions. 2. Right foot osteomyelitis. Patient had positive wound cultures from this site on his last hospital stay; Proteus and Corynebacteria were isolated. Patient continues on his antibiotic regimen; he had previously been transitioned to oral Augmentin but appeared to have redeveloped worsening of his operative site when it was stopped. It has looked quite good during this hospital stay. Sedimentation rate is 17 with a C- reactive protein of 2.55; osteomyelitis is unlikely. 3. Rash. The patient appears to have had a drug rash. It has been described as urticarial. I do not note hive-like lesions currently. I do note coarseness with excoriations. Benadryl has been effective for his symptoms. Disposition: The patient could return to [facility] on oral antibiotics and ongoing wound care. VS,Fishbone, I+O VS, Fishbone, I+O Laboratory Tests 11/24/18 08:04 Calcium Level 7.8 L 11/24/18 08:56 Red Blood Count 3.45 L, Mean Corpuscular Volume 83.2, Mean Corpuscular Hemoglobin 26.1 L, Mean Corpuscular Hemoglobin Concent 31.4 L, Red Cell Distribution Width 18.2 H Vital Signs Date Time Temp Pulse Resp B/P (MAP) Pulse Ox O2 Delivery O2 Flow Rate FiO2 11/24/18 15:20 97.0 93 17 115/78 (90) 97 11/19/18 14:22 Room Air I&O- Last 24 Hours up to 6 AM 11/24/18 06:00 Intake Total 1492 ml Output Total 2025 ml Balance -533 ml AUGIE REGALADO MD Nov 24, 2018 17:54
[2018-11-24 18:00] VITALS: BP 98/48
[2018-11-24] MEDS: LACTOBACILLUS ACIDOPHILUS CAP (BACID) PO SCH (18:30)
[2018-11-24 19:00] VITALS: BP 102/62
[2018-11-25 05:15] VITALS: BP 101/62
[2018-11-25] MEDS: SLF 3 ML SYR IV SCH (06:20)
[2018-11-25] MEDS: HEPARIN SOD (PORCINE) 5000 UNITS/ML VIAL SQ SCH (06:20)
[2018-11-25] MEDS: LACTOBACILLUS ACIDOPHILUS CAP (BACID) PO SCH (08:14)
[2018-11-25 08:42] LABS: HEMATOCRIT 28.3 % (42.0-52.0); MEAN CORPUSCULAR HEMOGLOBIN 27.4 pg (27.0-33.0); MEAN CORPUSCULAR HGB CONC 31.8 g/dl (32.0-36.5); MEAN CORPUSCULAR VOLUME 86.3 fl (80.0-96.0); PLATELET COUNT, AUTOMATED 370 10^3/uL (150-450); RED BLOOD COUNT 3.28 10^6/uL (4.30-6.10); WHITE BLOOD COUNT 16.6 10^3/uL (4.0-10.0)
[2018-11-25] MEDS ORDERED: DOXYCYCLINE HYCLATE 100 MG TAB PO SCH (09:00)
[2018-11-25 09:10] LABS: BLOOD UREA NITROGEN 18 MG/DL (7-18); CALCIUM LEVEL 7.8 MG/DL (8.5-10.1); CARBON DIOXIDE LEVEL 27 MEQ/L (21-32); CHLORIDE LEVEL 108 MEQ/L (98-107); GLOMERULAR FILTRATION RATE > 60.0 (>56); GLUCOSE, FASTING 89 MG/DL (70-100); POTASSIUM SERUM 3.7 MEQ/L (3.5-5.1); SODIUM LEVEL 142 MEQ/L (136-145)
[2018-11-25 10:00] VITALS: BP 100/63
[2018-11-25] MEDS ORDERED: BENA25CA4 PO (10:39)
[2018-11-25] MEDS ORDERED: RISATAB3 PO (10:39)
[2018-11-25] MEDS ORDERED: DOXY100T PO (10:39)
--- NOTE | 2018-12-20 14:39 | DS.PDOC ---
Discharge Summary General Date of Admission Nov 19, 2018 at 11:52 Date of Discharge November 25, 2018 Specialist/Consultants Involve: CHARLEEN GARCIA MD Discharge Summary PROCEDURES PERFORMED DURING STAY: [None]. ADMITTING DIAGNOSES: 1. [Sepsis]. DISCHARGE DIAGNOSES: 1. [Sepsis resolved, resolving drug exanthem, resolving leukocytosis, resolving osteomyelitis, cerebral palsy]. COMPLICATIONS/CHIEF COMPLAINT: Abd Pain Osetomyelitis Of Fifth Toe Rt Foot. HISTORY OF PRESENT ILLNESS/HOSPITAL COURSE: [53 year old male with cerebral palsy with history of recent Right transmetatarsal amputation for osteomyelitis. Has been on antibiotic therapy; was sent over from his facility due to leukocytosis, intermittent diarrhea and a drug rash; concerned was raised for recurrent osteomyelitis. Patient was initially placed in the ICU for fluid resuscitation. He was placed on empiric IV antibiotics. Blood cultures were negative and inflammatory indicators were negative--he was ruled out for active osteomyelitis. Leukocytosis continued to decrease. His drug exanthem from his prior oral antibiotic(Augmentin) was resolving. He did not have any episodes of diarrhea.]. DISCHARGE MEDICATIONS: Please see below. ALLERGIES: Please see below. PHYSICAL EXAMINATION ON DISCHARGE: HENT: Neck remains supple with no adenopathy or thyromegaly. Cardiovascular: Regular rate and rhythm with a normal S1 and S2 and no appreciable murmur or bruit. Respiratory: Clear to auscultation with no rhonchi, rales, wheezes or cough. Abdomen: Soft, nontender, nondistended. Extremities: Transmetatarsal site remains intact with no excessive drainage to the dressing. There is no remarkable erythema or swelling. Neuro: There is otherwise no gross neuromotor or sensory deficit; patient does have cerebral palsy. Skin: Patient has a resolving drug exanthem involving primarily his right upper extremity, there is some excoriation LABORATORY DATA: Please see below. IMAGING: PROGNOSIS: ACTIVITY: [As tolerated; wheelchair]. DIET: [Regular as tolerated] DISCHARGE PLAN: [Patient stable for return to [facility] on oral antibiotics (doxycycline). He will continue to follow with Dr. Massey as arranged regarding his foot.] DISPOSITION: [facility]. DISCHARGE CONDITION: [Stable]. TIME SPENT ON DISCHARGE: Greater than [40] minutes. Discharge Medications Scheduled Doxycycline Hyclate (Doxycycline Hyclate) 100 Mg Tablet, 100 MG PO BID L.acidoph/L.bulg/B.bif/S.therm (Nina-Bid Caplet) 1 Each Tablet, 1 EA PO BIDWM Scheduled PRN Acetaminophen (Acetaminophen) 325 Mg Tablet, 650 MG PO Q4H PRN for PAIN, (Reported) Bisacodyl (Bisacodyl) 10 Mg Supp.rect, 10 MG DE DAILY PRN for CONSTIPATION, (Reported) Diphenhydramine HCl (Benadryl) 25 Mg Capsule, 25 MG PO Q6HP PRN for ITCHING Magnesium Hydroxide (Milk of Magnesia) 400 Mg/5 Ml Oral.susp, 2,400 MG PO DAILY PRN for CONSTIPATION, (Reported) Ondansetron HCl (Ondansetron HCl) 4 Mg Tablet, 4 MG PO QID PRN for NAUSEA OR VOMITING, (Reported) Sodium Phosphate,Montrose-Dibasic (Fleet Enema) 133 Ml Enema, 1 NILSON DE DAILY PRN for CONSTIPATION, (Reported) Allergies Coded Allergies: amoxicillin (Verified Allergy, Intermediate, rash, 11/19/18) clavulanic acid (Verified Allergy, Intermediate, rash, 11/19/18) naproxen (Verified Allergy, Unknown, SOB, 11/19/18) AUGIE REGALADO MD Dec 20, 2018 14:39
== END 2018-11-25 12:17 | DRG 872 ==
LOC: M ED 09:02 → M ED INP 11:52 → M MSPAV 14:30 → M ICU 22:17 → M PCU 11-21 15:45 → M MSPAV 11-24 15:13
PROVIDERS: ADMIT Student in an Organized Health Care Education/Training Program; ATTEND Internal Medicine
DX: A41.9 Sepsis, unspecified organism (principal); M86.171 Other acute osteomyelitis, right ankle and foot; N17.9 Acute kidney failure, unspecified; E87.2 Acidosis; L03.115 Cellulitis of right lower limb; T88.6XXA Anaphylactic reaction due to adverse effect of correct drug or medicament properly administered, initial encounter; E87.1 Hypo-osmolality and hyponatremia; G80.9 Cerebral palsy, unspecified; F41.9 Anxiety disorder, unspecified; I20.9 Angina pectoris, unspecified; L50.9 Urticaria, unspecified; R19.7 Diarrhea, unspecified; D47.3 Essential (hemorrhagic) thrombocythemia; E86.0 Dehydration; Z79.899 Other long term (current) drug therapy; Z99.3 Dependence on wheelchair; Z88.0 Allergy status to penicillin; Z88.5 Allergy status to narcotic agent; Z88.8 Allergy status to other drugs, medicaments and biological substances; Z89.421 Acquired absence of other right toe(s)

== ENCOUNTER → 2018-11-19 | Outpatient (REF) | payer MEDICAID, MEDICARE ==
[2018-11-19 06:48] LABS: HEMOGLOBIN 11.8 g/dl (13.5-17.5); MEAN CORPUSCULAR HEMOGLOBIN 26.6 pg (27.0-33.0); MEAN CORPUSCULAR HGB CONC 32.8 g/dl (32.0-36.5); MEAN CORPUSCULAR VOLUME 81.3 fl (80.0-96.0); PLATELET COUNT, AUTOMATED 791 10^3/uL (150-450); RED BLOOD COUNT 4.43 10^6/uL (4.30-6.10)
[2018-11-19 07:46] LABS: WHITE BLOOD COUNT 41.2 10^3/uL (4.0-10.0)
== END ==
LOC: SKLAB7 07:00
DX: R19.7 Diarrhea, unspecified (principal)

== ENCOUNTER → 2018-11-28 | Outpatient (REF) ==
[~2018-11-28] MED LIST changes: +ACET1TAB55 PO; +BENA25CA4 PO; +BISA10SU27 PR; +DOXY100T PO; +FLEEENE12 PR; +MAGN400O50 PO; +ONDA-83 PO; +RISATAB3 PO
[2018-11-28 08:00] LABS: HEMATOCRIT 31.1 % (42.0-52.0); HEMOGLOBIN 9.5 g/dl (13.5-17.5); MEAN CORPUSCULAR HEMOGLOBIN 26.5 pg (27.0-33.0); MEAN CORPUSCULAR HGB CONC 30.5 g/dl (32.0-36.5); MEAN CORPUSCULAR VOLUME 86.9 fl (80.0-96.0); PLATELET COUNT, AUTOMATED 373 10^3/uL (150-450); RED BLOOD COUNT 3.58 10^6/uL (4.30-6.10)
[2018-11-28 09:21] LABS: ERYTHROCYTE SEDIMENTATION RATE 22 mm/hr (0-20)
== END ==
LOC: SKLAB7 07:00
DX: M86.9 Osteomyelitis, unspecified (principal)

== ENCOUNTER → 2018-12-08 | Outpatient (REF) ==
[2018-12-08 10:04] LABS: HEMATOCRIT 34.1 % (42.0-52.0); HEMOGLOBIN 10.7 g/dl (13.5-17.5); MEAN CORPUSCULAR HEMOGLOBIN 27.2 pg (27.0-33.0); MEAN CORPUSCULAR HGB CONC 31.4 g/dl (32.0-36.5); MEAN CORPUSCULAR VOLUME 86.8 fl (80.0-96.0); PLATELET COUNT, AUTOMATED 324 10^3/uL (150-450); RED BLOOD COUNT 3.93 10^6/uL (4.30-6.10); WHITE BLOOD COUNT 11.1 10^3/uL (4.0-10.0)
[2018-12-08 10:56] LABS: ERYTHROCYTE SEDIMENTATION RATE 35 mm/hr (0-20)
== END ==
LOC: SKLAB7 07:00
DX: M86.9 Osteomyelitis, unspecified (principal)

== ENCOUNTER → 2018-12-15 | Outpatient (REF) ==
[~2018-12-15] MED LIST changes: -MAGN400O50 PO; +MILKSUS9 PO; -ONDA-83 PO; +ONDA4TAB5 PO
[2018-12-15 08:57] LABS: HEMATOCRIT 36.1 % (42.0-52.0); HEMOGLOBIN 11.1 g/dl (13.5-17.5); MEAN CORPUSCULAR HEMOGLOBIN 26.5 pg (27.0-33.0); MEAN CORPUSCULAR HGB CONC 30.7 g/dl (32.0-36.5); MEAN CORPUSCULAR VOLUME 86.2 fl (80.0-96.0); PLATELET COUNT, AUTOMATED 448 10^3/uL (150-450); RED BLOOD COUNT 4.19 10^6/uL (4.30-6.10)
[2018-12-15 09:14] LABS: ERYTHROCYTE SEDIMENTATION RATE 43 mm/hr (0-20)
== END ==
LOC: SKLAB7 08:43
DX: M86.9 Osteomyelitis, unspecified (principal)

== ENCOUNTER → 2018-12-16 | Outpatient (REF) | payer MEDICARE, MEDICAID ==
[2018-12-16 08:01] LABS: HEMATOCRIT 35.2 % (42.0-52.0); MEAN CORPUSCULAR HEMOGLOBIN 26.8 pg (27.0-33.0); MEAN CORPUSCULAR HGB CONC 31.3 g/dl (32.0-36.5); MEAN CORPUSCULAR VOLUME 85.6 fl (80.0-96.0); PLATELET COUNT, AUTOMATED 399 10^3/uL (150-450); RED BLOOD COUNT 4.11 10^6/uL (4.30-6.10); WHITE BLOOD COUNT 12.2 10^3/uL (4.0-10.0)
== END ==
LOC: SKLAB7 07:00
PROVIDERS: ATTEND Family Medicine
DX: M86.9 Osteomyelitis, unspecified (principal)

== ENCOUNTER → 2018-12-22 | Outpatient (REF) ==
[2018-12-22 11:54] LABS: HEMATOCRIT 36.3 % (42.0-52.0); HEMOGLOBIN 11.4 g/dl (13.5-17.5); MEAN CORPUSCULAR HEMOGLOBIN 27.1 pg (27.0-33.0); MEAN CORPUSCULAR HGB CONC 31.4 g/dl (32.0-36.5); MEAN CORPUSCULAR VOLUME 86.4 fl (80.0-96.0); PLATELET COUNT, AUTOMATED 385 10^3/uL (150-450); WHITE BLOOD COUNT 11.7 10^3/uL (4.0-10.0)
[2018-12-22 12:23] LABS: ERYTHROCYTE SEDIMENTATION RATE 63 mm/hr (0-20)
== END ==
LOC: SKLAB7 07:00
DX: M86.9 Osteomyelitis, unspecified (principal)

== ENCOUNTER → 2018-12-29 | Outpatient (REF) ==
[2018-12-29 12:40] LABS: HEMATOCRIT 37.4 % (42.0-52.0); HEMOGLOBIN 11.4 g/dl (13.5-17.5); MEAN CORPUSCULAR HEMOGLOBIN 26.1 pg (27.0-33.0); MEAN CORPUSCULAR HGB CONC 30.5 g/dl (32.0-36.5); MEAN CORPUSCULAR VOLUME 85.8 fl (80.0-96.0); PLATELET COUNT, AUTOMATED 365 10^3/uL (150-450); RED BLOOD COUNT 4.36 10^6/uL (4.30-6.10); WHITE BLOOD COUNT 9.7 10^3/uL (4.0-10.0)
[2018-12-29 13:06] LABS: ERYTHROCYTE SEDIMENTATION RATE 60 mm/hr (0-20)
== END ==
LOC: SKLAB7 07:00
PROVIDERS: ATTEND Internal Medicine
DX: M86.9 Osteomyelitis, unspecified (principal)

== ENCOUNTER → 2019-01-31 | Outpatient (REF) | payer MEDICARE, MEDICAID ==
[2019-01-31 15:50] LABS: HEMATOCRIT 41.4 % (42.0-52.0); HEMOGLOBIN 12.7 g/dl (13.5-17.5); MEAN CORPUSCULAR HEMOGLOBIN 24.7 pg (27.0-33.0); MEAN CORPUSCULAR HGB CONC 30.7 g/dl (32.0-36.5); MEAN CORPUSCULAR VOLUME 80.4 fl (80.0-96.0); PLATELET COUNT, AUTOMATED 314 10^3/uL (150-450); RED BLOOD COUNT 5.15 10^6/uL (4.30-6.10); WHITE BLOOD COUNT 7.7 10^3/uL (4.0-10.0)
== END ==
LOC: M SFHCPLAZ 12:55
PROVIDERS: ATTEND Family Medicine
DX: D64.9 Anemia, unspecified (principal)
CPT/HCPCS: 36415; 85027; G0463

== ENCOUNTER → 2019-04-11 | Outpatient (CLI) | payer MEDICARE, MEDICAID ==
[~2019-04-11] MED LIST changes: +MAGN400O50 PO; -MILKSUS9 PO; +ONDA-83 PO; -ONDA4TAB5 PO
--- NOTE | 2019-04-11 14:12 | REPPI ---
Left shoulder: Four views. History: Pain in the left shoulder. Findings: The left glenohumeral and acromioclavicular joints are normally aligned. The radiographic projection is atypical suggesting lordotic tube angle. The acromioclavicular joint is normally aligned. No fracture is seen. There is diffuse osteopenia. Impression: Diffuse osteopenia. No fracture or subluxation seen. Electronically Signed by Lucas Clarke MD 04/11/2019 02:03 P
== END ==
LOC: M PLAIMG 13:12
PROVIDERS: ATTEND Family Medicine
DX: M25.512 Pain in left shoulder (principal)

== ENCOUNTER → 2019-05-22 | Outpatient (CLI) | payer MEDICARE, MEDICAID | LOC: M PT 11:27 | PROVIDERS: ATTEND Family Medicine | DX: G80.9 Cerebral palsy, unspecified (principal) ==

== ENCOUNTER 2019-12-08 12:36 | Emergency (ER) | payer MEDICARE, MEDICAID ==
[~2019-12-08] VITALS: Ht 170.2 cm; Wt 77.3 kg
[2019-12-08 12:38] VITALS: BP 139/74
[2019-12-08] MEDS ORDERED: PRED20TA PO (13:27)
== END 2019-12-08 13:37 | disposition home or self-care (01) ==
LOC: M ED 12:36
DX: L20.9 Atopic dermatitis, unspecified (principal)

== ENCOUNTER 2020-01-13 12:16 | Inpatient (IN) | payer MEDICARE, MEDICAID ==
[~2020-01-13] VITALS: Ht 170.2 cm; Wt 85.0 kg
[~2020-01-13 12:16] MED LIST changes: +PRED20TA PO
--- NOTE | 2020-01-13 13:04 | REP ---
INDICATION: leg swelling COMPARISON: None. TECHNIQUE: Portable AP view of the chest FINDINGS: The mediastinum and cardiac silhouette are stable and within normal limits for portable technique. The lung hull are clear without acute consolidation, effusion, or pneumothorax. Skeletal structures are intact. IMPRESSION: No acute cardiopulmonary process appreciated. <Electronically signed by Zay Rendon > 01/13/20 1300
[2020-01-13 13:22] LABS: BASO # 0.1 10^3/uL (0.0-0.2); BASO % 0.7 % (0.0-1.0); EOS # 0.2 10^3/uL (0.0-0.5); EOS % 1.7 % (0.0-3.0); HEMATOCRIT 43.1 % (42.0-52.0); HEMOGLOBIN 13.4 g/dl (13.5-17.5); LYMPH # 0.9 10^3/uL (1.5-5.0); LYMPH % 10.5 % (24.0-44.0); MEAN CORPUSCULAR HEMOGLOBIN 26.4 pg (27.0-33.0); MEAN CORPUSCULAR HGB CONC 31.1 g/dl (32.0-36.5); MONO # 0.9 10^3/uL (0.0-0.8); MONO % 10.4 % (0.0-5.0); NEUTROPHILS # 6.5 10^3/uL (1.5-8.5); NEUTROPHILS % 75.4 % (36.0-66.0); PLATELET COUNT, AUTOMATED 251 10^3/uL (150-450); RED BLOOD COUNT 5.07 10^6/uL (4.30-6.10); WHITE BLOOD COUNT 8.7 10^3/uL (4.0-10.0)
[2020-01-13 13:50] LABS: ERYTHROCYTE SEDIMENTATION RATE 51 mm/hr (0-20)
--- NOTE | 2020-01-13 13:50 | REP ---
INDICATION: lower leg swelling COMPARISON: None. TECHNIQUE: Goldsmith scale and color Doppler evaluation of the right and left lower extremities using linear high frequency transducer. FINDINGS: Ultrasound examination of the right and left lower extremity deep venous structures from the common femoral vein to the popliteal vein demonstrates normal compressibility flow and wave patterns in response to respiration and augmentation. There is no evidence for deep venous thrombosis. Subcutaneous swelling noted. IMPRESSION: No evidence for deep venous thrombosis. <Electronically signed by Zay Rendon > 01/13/20 [id number]
[2020-01-13 14:02] LABS: ALT/SGPT 17 U/L (12-78); BILIRUBIN,TOTAL 0.9 MG/DL (0.2-1.0); BLOOD UREA NITROGEN 12 MG/DL (7-18); C REACTIVE PROTEIN QUANTITATIV 8.61 MG/DL (0.00-0.30); CALCIUM LEVEL 8.3 MG/DL (8.5-10.1); CARBON DIOXIDE LEVEL 26 MEQ/L (21-32); CHLORIDE LEVEL 107 MEQ/L (98-107); CK-MB VALUE MASS 1.9 NG/ML (<3.6); CPK CREATINE PHOSPHOKINASE 205 U/L (39-308); CREATININE FOR GFR 1.07 MG/DL (0.70-1.30); GLOMERULAR FILTRATION RATE > 60.0 (>56); GLUCOSE, FASTING 89 MG/DL (70-100); MB/CK RELATIVE INDEX 0.93 (< OR =4); NT-PRO BNP 29 PG/ML (<125); POTASSIUM SERUM 2.8 MEQ/L (3.5-5.1); SODIUM LEVEL 140 MEQ/L (136-145); TOTAL PROTEIN 6.7 GM/DL (6.4-8.2); TROPONIN I < 0.02 NG/ML (< 0.10)
[2020-01-13] MEDS ORDERED: POTASSIUM CHLORIDE 10 MEQ SR TABLET PO ONE (14:15)
[2020-01-13] MEDS ORDERED: KCL 10MEQ/100ML SWI (KRUN) 10 MEQ in IV 1 EA IV ONE (14:15)
--- NOTE | 2020-01-13 16:18 | ECGEPIP ---
[facility] - ED Test Date: 2020-01-13 Pat Name: YARA ZAMBRANO Department: Room: - Gender: Male Speech Clinician: MICHELLE : 1965 Requested By: ALEA PINA Order Number: [id number] Reading MD: Marietta Garcia Measurements Intervals [place] Rate: 86 P: 22 NE: 156 QRS: -35 QRSD: 101 T: 19 QT: 362 QTc: 434 Interpretive Statements SINUS RHYTHM MARKED LEFT AXIS DEVIATION MODERATE VOLTAGE CRITERIA FOR LVH, CONSIDER NORMAL VARIANT NONSPECIFIC ST T WAVE CHANGES SEPTAL WALL WA AGE UNDETERMINED CW 11/19/[address] T WAVE CHANGES Electronically Signed on 01-13-2020 16:17:52 EDT by Marietta Garcia
[2020-01-13] MEDS ORDERED: POTASSIUM CHLORIDE 10% LIQ 20 MEQ/15 ML UDC PO ONE (17:00)
[2020-01-13 17:34] VITALS: BP 142/80
--- NOTE | 2020-01-13 17:43 | HPEPDOC ---
General Date of Admission Jan 13, 2020 at 16:03 Date of Service: Jan 13, 2020 Primary Care Physician: INES MASCORRO DO Attending Physician: GONZÁLEZ PRIETO MD Chief Complaint The patient is a 54-year-old male admitted with a reason for visit of Hypokalemia,Venous Stasis Ulcer. Source: Patient History of Present Illness Presenting compliant: Swelling in his legs History of present illness: Mr. Whitehead is a 54-year-old male patient with a past medical history of cerebral palsy, osteomyelitis of right foot s/p amputation of his toes who presented to the emergency department with complaints of swelling in his legs. Swelling first started in the right leg on 01/11/2020 with the pain intensity of 5/10, dull pain, no radiation, no aggravating or relieving factors. He thought leg elevation during the sleep Will decrease the swelling. On Wednesday his swelling has increased and now his left foot is also swollen, but he reports his pain has actually decreased. He reports no trauma, denies being started any new medication or [id number]-vurgoix medication. He reports no pain today in the emergency department. Off note: Patient was on prednisone taper since last admission and his last dose of prednisone was one week prior to starting of the symptoms (01/04/2020). Patient was prescribed prednisone for contact dermatitis and rash which he developed during the prior admission after starting an antibiotic. Past medical history: Cerebral palsy osteomyelitis of the foot Past Surgical history: - Rotation of right toes. - Hernia repair - Eye surgery Social history: Denies smoking, alcohol occasionally last drink September, no illicit drug use, no recreational drug use. Family History: Adopted, parents not known. REVIEW OF SYSTEMS: Constitutional: Denies having fever, chills, night sweats, weight loss, headaches. Eyes: Denies any blurry vision or double vision. ENT: Denies any dysphagia, odynophagia, ear discharge. Reports having difficulty in swallowing pills. Cardiovascular: Denies any chest pain or palpitations. Respiratory: Denies shortness of breath and cough. Gastrointestinal (GI): Denies any nausea or vomiting. Genitourinary: Denies dysuria, hematuria. Musculoskeletal: Denies any muscle aches and pains. Skin: Reports having a rash in his right arm. Hematology/Oncology: Denies any easy bleeding or bruising. Endocrine: Denies cold intolerance, heat intolerance, polydipsia, polyphagia, polyuria All other review of systems is negative. PHYSICAL EXAMINATION: Vital Signs: Temperature: 98.9 oral Pulse: 84 RR: 18 BP: 142/78 mmHg Oxygen saturation %: 98 on room air General: Patient is awake, alert, oriented times three, laying in bed , no apparent distress. Eyes: Conjunctiva clear, pupils equal round and reactive to light and accommodat ion. ENT: Hearing Bilateral normal. No nasal deviation, oropharynx clear with no lesions/erythema. Neck: Short neck, no masses, trachea midline, no thyroid nodules, masses, tenderness or enlargement. Cardiovascular: S1, S2, normal rhythm, grade 2 systolic murmur, rub, or gallop. Respiratory: Chest is clear to auscultation bilaterally. No rhonchi, wheezes or rubs. Abdomen: Soft, bowel sounds positive, no bruits. Nontender on palpation. Liver edge, spleen, kidney not felt, no masses. Extremities: Right toes amputated in October 2018. Bilateral Redness and swelling extending from ankle to up to 5 cm below knee on right leg, leg circumference and the maximum point of swelling was 40 cm. Swelling in the left leg extending from foot to 13 cm above ankle, and the circumference of the left leg max point of swelling is 30 cm. Noted a small open wound on his left medial malleolus, no discharge. Spine: No kyphosis, no paraspinal tenderness, no costovertebral tenderness. Central nervous system (BRAID PATTERN SETTER): Awake, alert and fully oriented. Motor: Strength normal 5/5 in upper extremity, lower extremity Limited examination because of the swelling. Skin: Redness noted in the bilateral upper extremity up to mid forearm from his prior contact dermatitis or side effect of medication. Pertinent Diagnostic tests: LABS: His potassium level is low at 2.8 Assessment: 54-year-old male patient with past medical history of cerebral palsy, osteomyelitis of right foot s/p amputation of right toes presented to the emergency department with redness and swelling in his bilateral legs and concerning for cellulitis vs stasis pedal edema. Plan: 1. Stasis pedal edema, possible cellulitis Patient is wheelchair bound as likely cause for his pedal edema. consider wound care. 3. Possible Cellulitis: Redness and swelling present in bilateral lower extremities. Less likely infection as WBC is 8.7. Will start him on doxycycline for now. Probiotics by mouth twice a day. 2. Hypokalemia: Most likely secondary to prednisone use in the recent past. Will replace potassium orally. Continue to monitor BMP. 4. DVT prophylaxis: Lovenox 40 MG subcutaneous Home Medications No Active Prescriptions or Reported Meds Allergies Coded Allergies: amoxicillin (Verified Allergy, Intermediate, rash, 11/19/18) clavulanic acid (Verified Allergy, Intermediate, rash, 11/19/18) naproxen (Verified Allergy, Unknown, SOB, 11/19/18) A-FIB/CHADSVASC A-FIB History Current/History of A-Fib/PAF?: No Vital Signs Vital Signs Date Time Temp Pulse Resp B/P (MAP) Pulse Ox O2 Delivery O2 Flow Rate FiO2 01/13/20 15:28 98.9 84 18 142/78 (99) 98 Room Air Laboratory Data Labs 24H Laboratory Tests 2 01/13/20 13:09: Immature Granulocyte % (Auto) 1.3, Neutrophils (%) (Auto) 75.4H, Lymphocytes (%) (Auto) 10.5L, Monocytes (%) (Auto) 10.4H, Eosinophils (%) (Auto) 1.7, Basophils (%) (Auto) 0.7, Neutrophils # (Auto) 6.5, Lymphocytes # (Auto) 0.9L, Monocytes # (Auto) 0.9H, Eosinophils # (Auto) 0.2, Basophils # (Auto) 0.1, Nucleated Red Blood Cells % (auto) 0.0, Erythrocyte Sedimentation Rate 51H, Anion Gap 7L, Glomerular Filtration Rate > 60.0, Lactic Acid Level 2.0, Calcium Level 8.3L, Total Bilirubin 0.9, Aspartate Amino Transf (AST/SGOT) 17, Alanine Aminotransferase (ALT/SGPT) 17, Alkaline Phosphatase 80, Total Creatine Kinase 205, Creatine Kinase MB 1.9, Creatine Kinase MB Relative Index 0.93, Troponin I < 0.02, C-Reactive Protein, Quantitative 8.61H, SP-Wtv-D-Type Natriuretic Peptide 29, Total Protein 6.7, Albumin 3.0L, Albumin/Globulin Ratio 0.8 CBC/BMP Laboratory Tests 01/13/20 13:09 Microbiology Microbiology 01/13/20 Blood Culture, Received Pending 01/13/20 Blood Culture, Received Pending Plan / VTE VTE Prophylaxis Ordered?: Yes GME ATTESTATION GME ATTESTATION My faculty preceptor for this patient encounter was physically present during the encounter and was fully available. All aspects of the patient interview, examination, medical decision making process, and medical care plan development were reviewed and approved by the faculty preceptor. The faculty preceptor is aware and concurs with the plan as stated in the body of this note and will attest to such by his/her cosignature. ATTENDING NOTE I, González Prieto, have independently examined this patient and performed my own physical exam, as well as reviewed the documentation and edited where necessary. I have discussed in detail with the resident / student the findings and plan of treatment as documented by the resident / student and edited their note. I agree with their findings and treatment plan and have edited their documentation. I will continue to follow the patient during this hospital stay. Zoe Jimenez MD Jan 13, 2020 16:29 GONZÁLEZ PRIETO MD Jan 14, 2020 09:19
[2020-01-13] MEDS: DOXYCYCLINE HYCLATE 100MG TABLET PO SCH (18:24)
[2020-01-13 22:00] VITALS: BP 128/87
[2020-01-13] MEDS ORDERED: HEPARIN SOD (PORCINE) 5000UNITS/ML 1ML VIAL/SYRINGE SC SCH (22:00)
[2020-01-13] MEDS: LACTOBACILLUS ACIDOPHILUS CAP (BACID) PO SCH (23:02)
[2020-01-13] MEDS: ENOXAPARIN 40MG/0.4ML SYRINGE (J1650 PER 10MG) SC SCH (23:03)
[2020-01-14] MEDS: DOXYCYCLINE HYCLATE 100MG TABLET PO SCH ×2 (06:06→18:33)
[2020-01-14 06:11] VITALS: BP 120/69
[2020-01-14 06:44] LABS: HEMOGLOBIN 12.5 g/dl (13.5-17.5); MEAN CORPUSCULAR HEMOGLOBIN 27.5 pg (27.0-33.0); MEAN CORPUSCULAR HGB CONC 32.1 g/dl (32.0-36.5); MEAN CORPUSCULAR VOLUME 85.7 fl (80.0-96.0); PLATELET COUNT, AUTOMATED 232 10^3/uL (150-450); RED BLOOD COUNT 4.55 10^6/uL (4.30-6.10); WHITE BLOOD COUNT 7.8 10^3/uL (4.0-10.0)
[2020-01-14 07:12] LABS: BLOOD UREA NITROGEN 13 MG/DL (7-18); CARBON DIOXIDE LEVEL 27 MEQ/L (21-32); CHLORIDE LEVEL 111 MEQ/L (98-107); CREATININE FOR GFR 1.08 MG/DL (0.70-1.30); GLOMERULAR FILTRATION RATE > 60.0 (>56); GLUCOSE, FASTING 85 MG/DL (70-100); MAGNESIUM LEVEL 2.1 MG/DL (1.8-2.4); POTASSIUM SERUM 4.1 MEQ/L (3.5-5.1); SODIUM LEVEL 143 MEQ/L (136-145)
[2020-01-14 07:58] LABS: C REACTIVE PROTEIN QUANTITATIV 8.16 MG/DL (0.00-0.30)
[2020-01-14] MEDS: LACTOBACILLUS ACIDOPHILUS CAP (BACID) PO SCH ×2 (09:09→22:34)
--- NOTE | 2020-01-14 09:28 | IPNPDOC ---
Text Note Date of Service The patient was seen on 01/14/20. NOTE Subjective: Patient is a 54-year-old male with a PMHx of Cerebral Palsy and Hx of Osteomyelitis of R foot (s/p amputation of toes), who presented to the hospital with worsening redness, warmth and swelling of both his legs. Patient recently has a history of cellulitis and was treated with doxycycline clinically had been better and then developed a rash that improved with prednisone. Patient was admitted to the hospital service for chronic stasis ulcers and hypokalemia. Patient was seen and examined at the bedside. Currently patient reports that he is doing well. Denies any nausea, vomiting, chest pain, shortness breath, palpitations, abdominal pain, constipation, diarrhea, or urinary discomfort. Objective: Vitals (See below) General: Lying in bed, no acute distress, comfortable, AAOx3 HEENT: NC, AT CVS: RRR, +S1S2 Lungs: Fair air entry b/l, -w/r/r Abdomen: Soft, ND, NT Extremities: R foot with all toes amputated, Bilateral redness / warmth / tenderness improved, - Calf tenderness Assessment and plan: Bilateral redness / warmth / tenderness / swelling - possibly 2/2 chronic dermatitis, possibly 2/2 cellulitis, no evidence of systemic fluid overload - Patient was noted to have bedbugs after admission - Patient uses wheelchair at baseline - Clinically patient has had significant improvement compared to yesterday - Hemodynamically stable and afebrile - No leukocytosis or lactic acidosis / CRP stable - Duplex US 01/12: No evidence for deep venous thrombosis. - ECHO pending - Will have wound care from PT evaluate bilateral legs - Likely will require outpatient follow up with Dr. Queen - c/w Doxycycline PO (Day #2) Normocytic anemia - Hg remains stable s/p Hypokalemia - possibly 2/2 prednisone - s/p Supplementation DVT prophylaxis - c/w Lovenox VS,Fishbone, I+O VS, Fishbone, I+O Laboratory Tests 01/13/20 13:09 01/14/20 06:06 Vital Signs Date Time Temp Pulse Resp B/P (MAP) Pulse Ox O2 Delivery O2 Flow Rate FiO2 01/14/20 06:11 97.8 82 17 120/69 (86) 95 Room Air I&O- Last 24 Hours up to 6 AM 01/14/20 05:59 Intake Total 995 ml Output Total 200 ml Balance 795 ml LOW CHI MD Jan 14, 2020 09:27
[2020-01-14 14:00] VITALS: BP 156/80
[2020-01-14 22:34] VITALS: BP 120/74
[2020-01-14] MEDS: ENOXAPARIN 40MG/0.4ML SYRINGE (J1650 PER 10MG) SC SCH (22:35)
[2020-01-15 05:24] VITALS: BP 118/70
[2020-01-15] MEDS: DOXYCYCLINE HYCLATE 100MG TABLET PO SCH ×2 (05:24→18:18)
[2020-01-15 07:39] LABS: HEMATOCRIT 40.9 % (42.0-52.0); HEMOGLOBIN 12.7 g/dl (13.5-17.5); MEAN CORPUSCULAR HEMOGLOBIN 26.5 pg (27.0-33.0); MEAN CORPUSCULAR HGB CONC 31.1 g/dl (32.0-36.5); MEAN CORPUSCULAR VOLUME 85.2 fl (80.0-96.0); PLATELET COUNT, AUTOMATED 274 10^3/uL (150-450); WHITE BLOOD COUNT 8.3 10^3/uL (4.0-10.0)
[2020-01-15 08:00] LABS: BLOOD UREA NITROGEN 15 MG/DL (7-18); CALCIUM LEVEL 8.1 MG/DL (8.5-10.1); CARBON DIOXIDE LEVEL 27 MEQ/L (21-32); CHLORIDE LEVEL 111 MEQ/L (98-107); CREATININE FOR GFR 0.95 MG/DL (0.70-1.30); GLOMERULAR FILTRATION RATE > 60.0 (>56); GLUCOSE, FASTING 91 MG/DL (70-100); MAGNESIUM LEVEL 2.1 MG/DL (1.8-2.4); POTASSIUM SERUM 3.8 MEQ/L (3.5-5.1); SODIUM LEVEL 143 MEQ/L (136-145)
[2020-01-15] MEDS: LACTOBACILLUS ACIDOPHILUS CAP (BACID) PO SCH ×2 (10:39→20:31)
[2020-01-15 14:00] VITALS: BP 110/70
--- NOTE | 2020-01-15 15:27 | IPNPDOC ---
Text Note Date of Service The patient was seen on 01/15/20. NOTE Subjective: Patient is a 54-year-old male with a PMHx of Cerebral Palsy and Hx of Osteomyelitis of R foot (s/p amputation of toes), who presented to the hospital with worsening redness, warmth and swelling of both his legs. Patient recently has a history of cellulitis and was treated with doxycycline clinically had been better and then developed a rash that improved with prednisone. Patient was admitted to the hospital service for chronic stasis ulcers and hypokalemia. Patient was seen and examined at the bedside. Currently reports that he is doing fine. Denies any CP, SOB, palpitations, abdominal pain, C/D or dysuria. Patient reports that his legs are improved. Objective: Vitals (See below) General: Lying in bed, appears comfortable, AAOx3 HEENT: NC, AT CVS: RRR, +S1S2 Lungs: Fair air entry b/l, no wheezing / rhonchi / rales Abdomen: Soft, non-distended, non-tender Extremities: R foot with all toes amputated, LE have improved erythema / swelling, - Calf tenderness Assessment and plan: Bilateral redness / warmth / tenderness / swelling - possibly 2/2 stasis dermatitis, possibly 2/2 cellulitis, no evidence of systemic fluid overload - Patient was noted to have bedbugs after admission - all clothes isolated; wheelchair will be terminally cleaned - Patient uses wheelchair at baseline - Clinically improved; improved erythema / swelling - Hemodynamically stable and afebrile - No leukocytosis or lactic acidosis / CRP stable - Duplex US 01/12: No evidence for deep venous thrombosis. - ECHO complete; report pending - Wound care from PT - not yet evaluated - Likely will require outpatient follow up with Dr. Queen - c/w Doxycycline PO (Day #3) Normocytic anemia - Hg remains stable s/p Hypokalemia - possibly 2/2 prednisone - s/p Supplementation DVT prophylaxis - c/w Lovenox Disposition: - Cleared PT - Awaiting wound care evaluation VS,Antonina, I+O VS, Antonina, I+O Laboratory Tests 01/15/20 07:30 Vital Signs Date Time Temp Pulse Resp B/P (MAP) Pulse Ox O2 Delivery O2 Flow Rate FiO2 01/15/20 14:00 97.8 74 17 110/70 (83) 98 Room Air I&O- Last 24 Hours up to 6 AM 01/15/20 06:00 Intake Total 1040 ml Output Total 1240 ml Balance -200 ml LOW CHI MD Jan 15, 2020 15:27
[2020-01-15] MEDS: ENOXAPARIN 40MG/0.4ML SYRINGE (J1650 PER 10MG) SC SCH (20:31)
[2020-01-15 22:00] VITALS: BP 132/95
[2020-01-16] MEDS: DOXYCYCLINE HYCLATE 100MG TABLET PO SCH (05:18)
[2020-01-16 06:00] VITALS: BP 129/79
[2020-01-16 06:59] LABS: BASO # 0.1 10^3/uL (0.0-0.2); BASO % 0.7 % (0.0-1.0); EOS # 0.5 10^3/uL (0.0-0.5); EOS % 6.6 % (0.0-3.0); HEMATOCRIT 39.7 % (42.0-52.0); HEMOGLOBIN 12.6 g/dl (13.5-17.5); LYMPH # 1.4 10^3/uL (1.5-5.0); MEAN CORPUSCULAR HEMOGLOBIN 27.1 pg (27.0-33.0); MEAN CORPUSCULAR HGB CONC 31.7 g/dl (32.0-36.5); MEAN CORPUSCULAR VOLUME 85.4 fl (80.0-96.0); MONO # 0.7 10^3/uL (0.0-0.8); MONO % 9.6 % (0.0-5.0); NEUTROPHILS # 4.1 10^3/uL (1.5-8.5); NEUTROPHILS % 60.1 % (36.0-66.0); PLATELET COUNT, AUTOMATED 281 10^3/uL (150-450); RED BLOOD COUNT 4.65 10^6/uL (4.30-6.10); WHITE BLOOD COUNT 6.9 10^3/uL (4.0-10.0)
[2020-01-16 07:31] LABS: BLOOD UREA NITROGEN 13 MG/DL (7-18); CALCIUM LEVEL 8.3 MG/DL (8.5-10.1); CARBON DIOXIDE LEVEL 26 MEQ/L (21-32); CHLORIDE LEVEL 110 MEQ/L (98-107); CREATININE FOR GFR 0.98 MG/DL (0.70-1.30); GLOMERULAR FILTRATION RATE > 60.0 (>56); GLUCOSE, FASTING 92 MG/DL (70-100); POTASSIUM SERUM 3.4 MEQ/L (3.5-5.1); SODIUM LEVEL 142 MEQ/L (136-145)
[2020-01-16] MEDS ORDERED: POTASSIUM CHLORIDE 10 MEQ SR TABLET PO ONE (08:00)
[2020-01-16] MEDS: LACTOBACILLUS ACIDOPHILUS CAP (BACID) PO SCH (08:01)
[2020-01-16] MEDS ORDERED: RISATAB3 PO (08:27)
[2020-01-16] MEDS ORDERED: VANI1CRE5 TOP (08:27)
[2020-01-16] MEDS ORDERED: DOXY100T PO (08:27)
[2020-01-16] MEDS ORDERED: VANICREAM MOISTURIZING SKIN CREAM 113GM TUBE TOP SCH (09:00)
--- NOTE | 2020-01-16 10:17 | DS.PDOC ---
Discharge Summary General Date of Admission Jan 13, 2020 at 16:03 Date of Discharge 01/16/2020 Discharge Summary PROCEDURES PERFORMED DURING STAY: [None]. ADMITTING DIAGNOSES / DISCHARGE DIAGNOSES: s/p Bilateral redness / warmth / tenderness / swelling - possibly 2/2 stasis dermatitis, possibly 2/2 cellulitis, no evidence of systemic fluid overload Normocytic anemia s/p Hypokalemia - possibly 2/2 prednisone DVT prophylaxis COMPLICATIONS/CHIEF COMPLAINT: Leg pain HISTORY OF PRESENT ILLNESS: Patient is a 54-year-old male with a PMHx of Cerebral Palsy and Hx of Osteomyelitis of R foot (s/p amputation of toes), who presented to the hospital with worsening redness, warmth and swelling of both his legs. Patient recently has a history of cellulitis and was treated with doxycycline clinically had been better and then developed a rash that improved with prednisone. Patient was admitted to the hospital service for chronic stasis ulcers and hypokalemia. HOSPITAL COURSE: s/p Bilateral redness / warmth / tenderness / swelling - possibly 2/2 stasis dermatitis, possibly 2/2 cellulitis, no evidence of systemic fluid overload - Patient was noted to have bedbugs after admission - all clothes isolated; wheelchair will be terminally cleaned - Patient uses wheelchair at baseline - Patient is clinically improved - near resolution of erythema / swelling - Hemodynamically stable and afebrile - No leukocytosis or lactic acidosis / CRP stable - Duplex US 01/12: No evidence for deep venous thrombosis. - ECHO complete - will have outpatient follow up with Dr. Ponce - Wound care from PT has provided wound care instructions; will continue on discharge - c/w Doxycycline PO (Day #4) - will complete antibiotics as an outpatient - Will have outpatient follow up with PCP within 7 days Normocytic anemia - Hg remains stable s/p Hypokalemia - possibly 2/2 prednisone - s/p Supplementation DVT prophylaxis - c/w Lovenox DISCHARGE MEDICATIONS: Please see below. ALLERGIES: Please see below. PHYSICAL EXAMINATION ON DISCHARGE: Vitals (See below) General: Sitting up in chair, appears comfortable, in no acute distress, AAOx3 HEENT: NC, AT CVS: +S1S2 Lungs: Fair air entry b/l, patient without any rhonchi, wheezing or rales Abdomen: Abdomen remains soft and nontender/, nondistended Extremities: R foot with toes amputated, improved erythema / swelling, - Calf tenderness LABORATORY DATA: Please see below. ACTIVITY: [As tolerated]. DISCHARGE PLAN: Follow-up with primary care provider within the next 7 days Remain compliant with treatment plan and medications Return to the ER if you experience any problems DISPOSITION: Home DISCHARGE CONDITION: [Stable]. TIME SPENT ON DISCHARGE: 35 minutes. Vital Signs/I&Os Vital Signs Date Time Temp Pulse Resp B/P (MAP) Pulse Ox O2 Delivery O2 Flow Rate FiO2 01/16/20 06:00 98.4 75 18 129/79 (96) 95 Room Air I&O- Last 24 Hours up to 6 AM 01/16/20 06:00 Intake Total 1440 ml Output Total 900 ml Balance 540 ml Laboratory Data Labs 24H Laboratory Tests 2 01/16/20 06:35: Immature Granulocyte % (Auto) 2.0, Neutrophils (%) (Auto) 60.1, Lymphocytes (%) (Auto) 21.0L, Monocytes (%) (Auto) 9.6H, Eosinophils (%) (Auto) 6.6H, Basophils (%) (Auto) 0.7, Neutrophils # (Auto) 4.1, Lymphocytes # (Auto) 1.4L, Monocytes # (Auto) 0.7, Eosinophils # (Auto) 0.5, Basophils # (Auto) 0.1, Nucleated Red Blood Cells % (auto) 0.0, Anion Gap 6L, Glomerular Filtration Rate > 60.0, Calcium Level 8.3L, Magnesium Level 2.0 CBC/BMP Laboratory Tests 01/16/20 06:35 Microbiology Microbiology 01/13/20 Blood Culture - Preliminary, Resulted No Growth after 48 hours. All Specime... 01/13/20 Blood Culture - Preliminary, Resulted No Growth after 48 hours. All Specime... Discharge Medications Scheduled Doxycycline Hyclate (Doxycycline Hyclate) 100 Mg Tablet, 100 MG PO BID Emollient Base (Vanicream) 453 Gm Cream..g., 0 DOSE TOP DAILY L.acidoph/L.bulg/B.bif/S.therm (Nina-Bid Caplet) 1 Each Tablet, 1 EA PO BID Allergies Coded Allergies: amoxicillin (Verified Allergy, Intermediate, rash, 11/19/18) clavulanic acid (Verified Allergy, Intermediate, rash, 11/19/18) naproxen (Verified Allergy, Unknown, SOB, 11/19/18) LOW CHI MD Jan 16, 2020 10:17
--- NOTE | 2020-01-16 14:27 | ECHO ---
DATE OF PROCEDURE: 01/15/2020 Age: 54 Gender: Male Height: 170 cm Weight: 80 kg REFERRING PHYSICIAN: INDICATION: Abnormal EKG. MEASUREMENTS: IVS 0.6 cm LV 3.4 cm LVPW 0.9 cm LA 3.5 cm Aorta 2.3 cm Mitral E wave velocity 76 Mitral A wave velocity 76 E prime septal 10.7 E prime lateral 10.6 This study is of very limited technical quality with difficult visualization. Patient is in sinus rhythm. Normal left ventricular (LV) size with overall likely normal left ventricular (LV) systolic function. Based on limited nature of images, I certainly cannot rule out wall motion abnormalities, but it seems unlikely. Right ventricle also appears to be normal size and systolic function. Both atria appear grossly normal. No obvious abnormalities are seen based on limited visualization of aortic, mitral, and tricuspid valves. Pulmonic valve was not seen at all. No pericardial effusion is noted. Inferior vena cava was not visualized. The aortic root is normal. Aortic arch and abdominal aorta were not well seen. Doppler interrogation reveals mildly increased gradient across the aortic valve, mean gradient was 8 mmHg. No insufficiency was present. Mitral and tricuspid valves are functionally competent. Mitral inflow pattern and tissue Doppler imaging of the mitral annulus revealed normal diastolic function. CONCLUSIONS: 1. Study is of limited technical quality with difficult visualization. The patient is in sinus rhythm. 2. Normal left ventricular (LV) size with preserved left ventricular (LV) systolic function and preserved diastolic function. 3. No hemodynamically significant valvular disease. 4. Unable to estimate central venous pressure and pulmonary artery pressure. COMMENTS: Very limited echocardiogram, but no obvious explanation for abnormal EKG. [facility]
== END 2020-01-16 12:05 | disposition home or self-care (01) | DRG 300 ==
LOC: M ED 12:16 → M ED INP 16:03 → ENRESERV 16:36 → M MSPAV 17:39
PROVIDERS: ADMIT Internal Medicine; ATTEND Internal Medicine
DX: I87.2 Venous insufficiency (chronic) (peripheral) (principal); L03.116 Cellulitis of left lower limb; L03.115 Cellulitis of right lower limb; E87.6 Hypokalemia; L25.9 Unspecified contact dermatitis, unspecified cause; G80.9 Cerebral palsy, unspecified; D64.9 Anemia, unspecified; Z89.421 Acquired absence of other right toe(s); Z88.0 Allergy status to penicillin; Z88.6 Allergy status to analgesic agent; Z88.8 Allergy status to other drugs, medicaments and biological substances

== ENCOUNTER 2024-07-13 08:42 | Inpatient (IN) | payer MEDICARE, MEDICAID ==
[~2024-07-13] VITALS: Ht 167.6 cm; Wt 70.0 kg
[~2024-07-13 08:42] MED LIST changes: +AMMO12LO EXT; -MAGN400O50 PO; +PROC1CRE5 TOP; +SFHMOMUDC PO; +VANI1CRE5 TOP
[2024-07-13 09:23] VITALS: BP 100/62; TEMP 100.2; O2SAT 99
[2024-07-13 09:25] LABS: VENOUS BASE EXCESS 0.2 (-2.0-2.0); VENOUS HCO3 26.6 MMOL/L (23.0-27.0); VENOUS O2 SATURATION 47.5 % (60.0-80.0); VENOUS PARTIAL PRESSURE CO2 49.7 mmHg (38.0-50.0); VENOUS PH 7.346 UNITS (7.330-7.430); VENOUS STANDARD HCO3 23.4 MMOL/L; VENOUS TOTAL CO2 28.1 MMOL/L (24.0-28.0)
[2024-07-13 09:30] LABS: BASO # 0.1 10^3/uL (0.0-0.2); BASO % 0.9 % (0.0-1.0); EOS # 0.1 10^3/uL (0.0-0.5); EOS % 0.5 % (0.0-3.0); HEMATOCRIT 46.1 % (42.0-52.0); HEMOGLOBIN 14.2 g/dl (13.5-17.5); LYMPH # 2.1 10^3/uL (1.5-5.0); LYMPH % 19.2 % (24.0-44.0); MEAN CORPUSCULAR HEMOGLOBIN 25.6 pg (27.0-33.0); MEAN CORPUSCULAR HGB CONC 30.8 g/dl (32.0-36.5); MEAN CORPUSCULAR VOLUME 83.2 fl (80.0-96.0); MONO # 0.9 10^3/uL (0.0-0.8); MONO % 8.4 % (2.0-8.0); NEUTROPHILS # 7.5 10^3/uL (1.5-8.5); NEUTROPHILS % 70.4 % (36.0-66.0); PLATELET COUNT, AUTOMATED 390 10^3/uL (150-450); RED BLOOD COUNT 5.54 10^6/uL (4.30-6.10); WHITE BLOOD COUNT 10.7 10^3/uL (4.0-10.0)
[2024-07-13] MEDS: ACETAMINOPHEN *IV* 1,000 MG in IV 1 EA IV ONE (09:35)
[2024-07-13 09:44] LABS: INR 1.07; PARTIAL THROMBOPLASTIN TIME 32.5 SECONDS (24.8-34.2); PROTHROMBIN TIME 14.2 SECONDS (12.5-14.5)
[2024-07-13] MEDS ORDERED: ISOVUE-370 76% 100ML VIAL As Ordered ONE (09:49)
[2024-07-13 10:03] LABS: THYROID STIMULATING HORMONE 1.406 uIU/ML (0.55-4.78)
[2024-07-13 10:07] LABS: ALBUMIN 3.7 G/DL (3.2-5.2); ALKALINE PHOSPHATASE 120 U/L (40-129); ALT/SGPT 13 U/L (7.0-40); AST/SGOT 26 U/L (<34); BILIRUBIN,DIRECT 0.2 MG/DL (<0.4); BILIRUBIN,TOTAL 0.7 MG/DL (0.3-1.2); BLOOD UREA NITROGEN 15 MG/DL (9-23); CALCIUM LEVEL 9.7 MG/DL (8.5-10.1); CARBON DIOXIDE LEVEL 26 MMOL/L (20-31); CHLORIDE LEVEL 104 MMOL/L (98-107); CREATININE FOR GFR 0.68 MG/DL (0.70-1.30); GLOMERULAR FILTRATION RATE > 90.0 (>56); GLUCOSE, FASTING 86 MG/DL (60-100); POTASSIUM SERUM 3.9 MMOL/L (3.5-5.1); SODIUM LEVEL 142 MMOL/L (136-145); TOTAL PROTEIN 8.5 G/DL (5.7-8.2)
[2024-07-13 10:42] LABS: KETONE, URINE AUTO RFX 1+ mg/dL (NEGATIVE); LEUKOCYTE ESTERASE UR AUTO RFX NEGATIVE (NEGATIVE); MUCUS, URINE RFX SMALL (NEGATIVE); NITRITE, URINE AUTO RFX NEGATIVE (NEGATIVE); RBC, URINE AUTO RFX 0 /HPF (0-3); SQUAM EPITHELIAL CELL UR AURFX 0 /HPF (0-6); WBC, URINE AUTO RFX 1 /HPF (0-3)
[2024-07-13 11:02] LABS: CK-MB VALUE MASS < 1.0 NG/ML (<3.6)
[2024-07-13 11:04] LABS: CPK CREATINE PHOSPHOKINASE 66 U/L (46-171); MB/CK RELATIVE INDEX 1.51 (< OR =4)
[2024-07-13 11:15] LABS: CK-MB VALUE MASS < 1.0 NG/ML (<3.6); ETHYL ALCOHOL (ETHANOL) < 0.003 % (0.000-0.010)
[2024-07-13 11:17] LABS: SALICYLATE LEVEL < 3.0 MG/DL (<30)
[2024-07-13 11:29] LABS: PROCALCITONIN 0.05 ng/ml
[2024-07-13 11:35] LABS: CPK CREATINE PHOSPHOKINASE 72 U/L (46-171); MB/CK RELATIVE INDEX 1.38 (< OR =4)
[2024-07-13] MEDS: LevoFLOXacin IV 750 MG in IV 1 EA IV ONE (12:25)
[2024-07-13] MEDS: NS 500 ML IV ONE (12:25)
[2024-07-13 12:28] LABS: BARBITURATES URINE NEGATIVE (NEGATIVE); CANNABINOIDS URINE NEGATIVE (NEGATIVE); COCAINE METABOLITE URINE NEGATIVE (NEGATIVE); METHADONE URINE NEGATIVE (NEGATIVE); OPIATES URINE NEGATIVE (NEGATIVE); PHENCYCLIDINE URINE NEGATIVE (NEGATIVE)
[2024-07-13 12:29] LABS: AMPHETAMINES LEVEL URINE NEGATIVE (NEGATIVE); BENZODIAZEPINES URINE NEGATIVE (NEGATIVE)
[2024-07-13] MEDS ORDERED: NYST15OI4 TOP (12:30)
[2024-07-13] MEDS ORDERED: AMMO12CR7 TOP (12:30)
[2024-07-13] MEDS ORDERED: SENN1TAB85 PO (12:30)
[2024-07-13] MEDS ORDERED: VANI1CRE5 TOP (12:30)
[2024-07-13] MEDS ORDERED: HOME MED LIST COMPLETE! XX SCH (12:30)
[2024-07-13] MEDS ORDERED: MILKSUS3 PO (12:30)
[2024-07-13] MEDS ORDERED: FLUT15.820 (12:30)
[2024-07-13] MEDS ORDERED: GUAI100L6 PO (12:30)
[2024-07-13] MEDS ORDERED: PERCOCET PO (12:30)
[2024-07-13] MEDS ORDERED: SANT250O8 TOP (12:30)
[2024-07-13] MEDS ORDERED: MOM 30ML SUSPENSION UDC PO PRN (12:50)
[2024-07-13] MEDS ORDERED: guaiFENesin SYRUP 200MG 10ML UDC PO PRN (12:50)
[2024-07-13 13:28] LABS: HEMATOCRIT 41.7 % (42.0-52.0); HEMOGLOBIN 12.7 g/dl (13.5-17.5); MEAN CORPUSCULAR HEMOGLOBIN 25.6 pg (27.0-33.0); MEAN CORPUSCULAR HGB CONC 30.5 g/dl (32.0-36.5); MEAN CORPUSCULAR VOLUME 83.9 fl (80.0-96.0); PLATELET COUNT, AUTOMATED 403 10^3/uL (150-450); RED BLOOD COUNT 4.97 10^6/uL (4.30-6.10); WHITE BLOOD COUNT 10.7 10^3/uL (4.0-10.0)
[2024-07-13 13:41] LABS: INR 1.13; PROTHROMBIN TIME 14.8 SECONDS (12.5-14.5)
[2024-07-13] MEDS: LORazepam 2 MG/ML 1ML VIAL IV ONE (13:42)
[2024-07-13] MEDS: NS (Normal Saline) 0.9% 1,000 ML IV SCH (13:42)
[2024-07-13] MEDS ORDERED: ASPIRIN 81MG ENTERIC TABLET PO SCH (13:50)
[2024-07-13 14:02] LABS: C REACTIVE PROTEIN QUANTITATIV 2.54 MG/DL (<1.0)
[2024-07-13 14:14] LABS: ALBUMIN 3.1 G/DL (3.2-5.2); ALKALINE PHOSPHATASE 102 U/L (40-129); ALT/SGPT 15 U/L (7.0-40); AST/SGOT 15 U/L (<34); BILIRUBIN,TOTAL 0.6 MG/DL (0.3-1.2); BLOOD UREA NITROGEN 14 MG/DL (9-23); CALCIUM LEVEL 8.9 MG/DL (8.5-10.1); CARBON DIOXIDE LEVEL 28 MMOL/L (20-31); CHLORIDE LEVEL 104 MMOL/L (98-107); CHOLESTEROL LEVEL 115 MG/DL (<200); CHOLESTEROL RISK RATIO 4.37 (<5); CREATININE FOR GFR 0.62 MG/DL (0.70-1.30); GLOMERULAR FILTRATION RATE > 90.0 (>56); GLUCOSE, FASTING 84 MG/DL (60-100); HDL CHOLESTEROL 26.3 MG/DL (>40); LDL CHOLESTEROL 72.3 MG/DL (<100); NON-HDL-C 88.7 MG/DL; POTASSIUM SERUM 3.3 MMOL/L (3.5-5.1); PROCALCITONIN 0.05 ng/ml; SODIUM LEVEL 141 MMOL/L (136-145); TOTAL PROTEIN 7.2 G/DL (5.7-8.2); TRIGLYCERIDES LEVEL 82 MG/DL (<150)
[2024-07-13 15:10] VITALS: BP 134/99; TEMP 97.7; O2SAT 97
[2024-07-13 15:15] LABS: HEMOGLOBIN A1c 4.8 % (4.0-6.0)
[2024-07-13] MEDS: ceFAZolin SODIUM 2 GM in DEXTROSE 5% (D5W) ADV/MINI-BAG 50 ML IV SCH (16:10)
[2024-07-13] MEDS: ACETAMINOPHEN 325 MG TAB PO PRN (18:33)
[2024-07-13 20:13] VITALS: BP 113/62; TEMP 100.4
[2024-07-13 20:21] VITALS: O2SAT 95
[2024-07-13] MEDS: methylPREDNISolone 125MG 2ML VIAL IV ONE (20:32)
[2024-07-13] MEDS: diphenhydrAMINE 50MG/ML VIAL IV PRN (20:33)
[2024-07-13] MEDS: FAMOTIDINE IV BAG 20 MG in IV 1 EA IV ONE (21:00)
[2024-07-13] MEDS ORDERED: SIMVASTATIN 40 MG TAB PO SCH (21:00)
[2024-07-13] MEDS: ATORVASTATIN 20 MG TAB PO SCH (21:00)
[2024-07-13] MEDS: MYCOLOG CREAM 15GM (NYSTATIN/TRIAMCINOLONE) TOP SCH (21:00)
[2024-07-13] MEDS: SENOKOT S TAB PO SCH (21:00)
[2024-07-13] MEDS ORDERED: MYCOLOG CREAM 15GM (NYSTATIN/TRIAMCINOLONE) TOP SCH (21:00)
[2024-07-13 21:09] LABS: BASO % 0.2 % (0.0-1.0); EOS # 0.2 10^3/uL (0.0-0.5); HEMATOCRIT 42.1 % (42.0-52.0); HEMOGLOBIN 13.1 g/dl (13.5-17.5); LYMPH # 1.7 10^3/uL (1.5-5.0); LYMPH % 11.5 % (24.0-44.0); MEAN CORPUSCULAR HEMOGLOBIN 25.9 pg (27.0-33.0); MEAN CORPUSCULAR HGB CONC 31.1 g/dl (32.0-36.5); MEAN CORPUSCULAR VOLUME 83.4 fl (80.0-96.0); MONO # 0.6 10^3/uL (0.0-0.8); MONO % 4.2 % (2.0-8.0); NEUTROPHILS # 11.9 10^3/uL (1.5-8.5); NEUTROPHILS % 82.5 % (36.0-66.0); PLATELET COUNT, AUTOMATED 388 10^3/uL (150-450); RED BLOOD COUNT 5.05 10^6/uL (4.30-6.10); WHITE BLOOD COUNT 14.4 10^3/uL (4.0-10.0)
[2024-07-13 21:32] LABS: ALKALINE PHOSPHATASE 102 U/L (40-129); ALT/SGPT 11 U/L (7.0-40); AST/SGOT 18 U/L (<34); BILIRUBIN,TOTAL 0.5 MG/DL (0.3-1.2); BLOOD UREA NITROGEN 13 MG/DL (9-23); CALCIUM LEVEL 9.2 MG/DL (8.5-10.1); CARBON DIOXIDE LEVEL 27 MMOL/L (20-31); CHLORIDE LEVEL 106 MMOL/L (98-107); CREATININE FOR GFR 0.64 MG/DL (0.70-1.30); GLOMERULAR FILTRATION RATE > 90.0 (>56); GLUCOSE, FASTING 81 MG/DL (60-100); POTASSIUM SERUM 3.8 MMOL/L (3.5-5.1); SODIUM LEVEL 142 MMOL/L (136-145); TOTAL PROTEIN 7.2 G/DL (5.7-8.2)
[2024-07-14] VITALS (12 sets, daily range): BP systolic 88–118; BP diastolic 54–68; TEMP 98.1–102.3; O2SAT 92–96
[2024-07-14] MEDS: CLINDAMYCIN 600 MG in IV 1 EA IV SCH (00:39)
[2024-07-14] MEDS: methylPREDNISolone 125MG 2ML VIAL IV SCH (05:50)
[2024-07-14 06:36] LABS: HEMATOCRIT 40.7 % (42.0-52.0); HEMOGLOBIN 12.3 g/dl (13.5-17.5); MEAN CORPUSCULAR HEMOGLOBIN 25.3 pg (27.0-33.0); MEAN CORPUSCULAR HGB CONC 30.2 g/dl (32.0-36.5); MEAN CORPUSCULAR VOLUME 83.6 fl (80.0-96.0); PLATELET COUNT, AUTOMATED 374 10^3/uL (150-450); RED BLOOD COUNT 4.87 10^6/uL (4.30-6.10); WHITE BLOOD COUNT 19.4 10^3/uL (4.0-10.0)
[2024-07-14 07:03] LABS: ALBUMIN 2.8 G/DL (3.2-5.2); ALKALINE PHOSPHATASE 92 U/L (40-129); ALT/SGPT 9 U/L (7.0-40); AST/SGOT 16 U/L (<34); BILIRUBIN,TOTAL 0.5 MG/DL (0.3-1.2); BLOOD UREA NITROGEN 16 MG/DL (9-23); CARBON DIOXIDE LEVEL 21 MMOL/L (20-31); CHLORIDE LEVEL 108 MMOL/L (98-107); CREATININE FOR GFR 0.72 MG/DL (0.70-1.30); GLOMERULAR FILTRATION RATE > 90.0 (>56); GLUCOSE, FASTING 106 MG/DL (60-100); POTASSIUM SERUM 3.9 MMOL/L (3.5-5.1); SODIUM LEVEL 143 MMOL/L (136-145); TOTAL PROTEIN 6.8 G/DL (5.7-8.2)
[2024-07-14 07:59] LABS: C REACTIVE PROTEIN QUANTITATIV 3.43 MG/DL (<1.0)
[2024-07-14] MEDS: CETIRIZINE (ZyrTEC) 10 MG TAB PO SCH (08:22)
[2024-07-14] MEDS: ENOXAPARIN 40MG/0.4ML SYRINGE (J1650 PER 10MG) SC SCH (08:23)
[2024-07-14] MEDS: FLUTICASONE PROP 0.05% NASAL SPRAY 16 GM (FLONASE) NARES SCH (08:24)
[2024-07-14] MEDS: VANICREAM MOISTURIZING SKIN CREAM 113GM TUBE TOP SCH (08:24)
[2024-07-14] MEDS: LACTIC ACID 12% LOTION 225 GM BTL TOP SCH (08:24)
[2024-07-14] MEDS: SANTYL OINT 30GM TOP SCH (08:25)
[2024-07-14] MEDS ORDERED: LACTIC ACID 12% LOTION 225 GM BTL TOP SCH (09:00)
[2024-07-14] MEDS ORDERED: VANCOMYCIN HCL 1,000 MG, VIAL MATE ADAPTER 1 EACH in NS 250 ML IV SCH (10:50)
[2024-07-14] MEDS: CLOPIDOGREL 75 MG TAB PO SCH (11:46)
[2024-07-14] MEDS ORDERED: VANCOMYCIN HCL 1,500 MG, VIAL MATE ADAPTER 1 EACH in NS 500 ML IV ONE (12:00)
[2024-07-14] MEDS: VANCOMYCIN HCL 1,500 MG, VIAL MATE ADAPTER 1 EACH in NS 500 ML IV ONE (15:34)
[2024-07-14] MEDS: NS (Normal Saline) 0.9% 1,000 ML IV ONE (17:22)
[2024-07-14] MEDS: LevoFLOXacin IV 750 MG in IV 1 EA IV SCH (18:16)
[2024-07-14] MEDS: LINEZOLID 600 MG in IV 1 EA IV SCH (20:54)
[2024-07-14] MEDS: LR 1,000 ML IV ONE (22:24)
[2024-07-15] VITALS (10 sets, daily range): BP systolic 84–98; BP diastolic 44–64; TEMP 98.5–100.6; O2SAT 92–100
[2024-07-15] MEDS ORDERED: VANCOMYCIN HCL 750 MG, VIAL MATE ADAPTER 1 EACH in NS 250 ML IV SCH
[2024-07-15] MEDS: ACETAMINOPHEN *IV* 500 MG in IV 1 EA IV ONE (00:16)
[2024-07-15 06:33] LABS: BASO # 0.1 10^3/uL (0.0-0.2); BASO % 0.2 % (0.0-1.0); EOS # 0.1 10^3/uL (0.0-0.5); EOS % 0.2 % (0.0-3.0); HEMATOCRIT 35.5 % (42.0-52.0); LYMPH # 0.3 10^3/uL (1.5-5.0); MEAN CORPUSCULAR HEMOGLOBIN 25.6 pg (27.0-33.0); MEAN CORPUSCULAR VOLUME 82.8 fl (80.0-96.0); MONO # 0.4 10^3/uL (0.0-0.8); MONO % 1.4 % (2.0-8.0); NEUTROPHILS # 28.2 10^3/uL (1.5-8.5); NEUTROPHILS % 95.8 % (36.0-66.0); PLATELET COUNT, AUTOMATED 335 10^3/uL (150-450); RED BLOOD COUNT 4.29 10^6/uL (4.30-6.10); WHITE BLOOD COUNT 29.4 10^3/uL (4.0-10.0)
[2024-07-15 07:23] LABS: ALBUMIN 2.2 G/DL (3.2-5.2); ALKALINE PHOSPHATASE 66 U/L (40-129); ALT/SGPT < 9 U/L (7.0-40); AST/SGOT 13 U/L (<34); BILIRUBIN,TOTAL 0.4 MG/DL (0.3-1.2); BLOOD UREA NITROGEN 22 MG/DL (9-23); C REACTIVE PROTEIN QUANTITATIV 11.72 MG/DL (<1.0); CALCIUM LEVEL 8.4 MG/DL (8.5-10.1); CARBON DIOXIDE LEVEL 22 MMOL/L (20-31); CHLORIDE LEVEL 109 MMOL/L (98-107); CREATININE FOR GFR 0.73 MG/DL (0.70-1.30); GLOMERULAR FILTRATION RATE > 90.0 (>56); GLUCOSE, FASTING 124 MG/DL (60-100); MAGNESIUM LEVEL 1.5 MG/DL (1.8-2.4); POTASSIUM SERUM 3.4 MMOL/L (3.5-5.1); SODIUM LEVEL 142 MMOL/L (136-145); TOTAL PROTEIN 5.5 G/DL (5.7-8.2)
[2024-07-15] MEDS: NS (Normal Saline) 0.9% 1,000 ML IV ONE ×3 (08:26→10:44)
[2024-07-15] MEDS: POTASSIUM CHLORIDE 10MEQ SR TABLET PO ONE (08:32)
[2024-07-15] MEDS: MAG SULF 1GM/100ML (MAG RUN) 1 GM in IV 1 EA IV SCH (10:34)
[2024-07-16 03:35] VITALS: BP 98/71; TEMP 97.9; O2SAT 99
[2024-07-16 06:44] LABS: BASO % 0.1 % (0.0-1.0); EOS % 0.1 % (0.0-3.0); HEMATOCRIT 36.2 % (42.0-52.0); HEMOGLOBIN 11.3 g/dl (13.5-17.5); LYMPH # 0.5 10^3/uL (1.5-5.0); LYMPH % 2.3 % (24.0-44.0); MEAN CORPUSCULAR HEMOGLOBIN 25.7 pg (27.0-33.0); MEAN CORPUSCULAR HGB CONC 31.2 g/dl (32.0-36.5); MEAN CORPUSCULAR VOLUME 82.3 fl (80.0-96.0); MONO # 0.4 10^3/uL (0.0-0.8); NEUTROPHILS # 18.9 10^3/uL (1.5-8.5); NEUTROPHILS % 94.4 % (36.0-66.0); PLATELET COUNT, AUTOMATED 292 10^3/uL (150-450)
[2024-07-16 07:09] LABS: ALBUMIN 2.1 G/DL (3.2-5.2); ALKALINE PHOSPHATASE 57 U/L (40-129); ALT/SGPT 13 U/L (7.0-40); AST/SGOT 8 U/L (<34); BILIRUBIN,TOTAL 0.3 MG/DL (0.3-1.2); BLOOD UREA NITROGEN 17 MG/DL (9-23); C REACTIVE PROTEIN QUANTITATIV 6.51 MG/DL (<1.0); CALCIUM LEVEL 8.1 MG/DL (8.5-10.1); CARBON DIOXIDE LEVEL 23 MMOL/L (20-31); CHLORIDE LEVEL 109 MMOL/L (98-107); CREATININE FOR GFR 0.64 MG/DL (0.70-1.30); GLOMERULAR FILTRATION RATE > 90.0 (>56); GLUCOSE, FASTING 130 MG/DL (60-100); MAGNESIUM LEVEL 1.8 MG/DL (1.8-2.4); POTASSIUM SERUM 3.7 MMOL/L (3.5-5.1); SODIUM LEVEL 142 MMOL/L (136-145); TOTAL PROTEIN 5.3 G/DL (5.7-8.2)
[2024-07-16 12:00] VITALS: BP 96/55; TEMP 97.7; O2SAT 96
[2024-07-16] MEDS: methylPREDNISolone 40MG 1ML VIAL IV SCH (16:07)
[2024-07-16 20:30] VITALS: BP 108/58; TEMP 98.2; O2SAT 95
[2024-07-16] MEDS: LINEZOLID 600MG TABLET (ZYVOX) PO SCH (20:35)
[2024-07-17 04:25] VITALS: BP 97/55; TEMP 97.7; O2SAT 96
[2024-07-17 05:05] LABS: BASO % 0.2 % (0.0-1.0); EOS % 0.2 % (0.0-3.0); HEMATOCRIT 35.7 % (42.0-52.0); HEMOGLOBIN 11.3 g/dl (13.5-17.5); LYMPH # 0.9 10^3/uL (1.5-5.0); LYMPH % 7.3 % (24.0-44.0); MEAN CORPUSCULAR HEMOGLOBIN 25.9 pg (27.0-33.0); MEAN CORPUSCULAR HGB CONC 31.7 g/dl (32.0-36.5); MEAN CORPUSCULAR VOLUME 81.7 fl (80.0-96.0); MONO # 0.6 10^3/uL (0.0-0.8); MONO % 4.8 % (2.0-8.0); NEUTROPHILS % 86.7 % (36.0-66.0); PLATELET COUNT, AUTOMATED 291 10^3/uL (150-450); RED BLOOD COUNT 4.37 10^6/uL (4.30-6.10); WHITE BLOOD COUNT 11.6 10^3/uL (4.0-10.0)
[2024-07-17 05:27] LABS: C REACTIVE PROTEIN QUANTITATIV 2.84 MG/DL (<1.0)
[2024-07-17 05:28] LABS: ALBUMIN 2.1 G/DL (3.2-5.2); ALKALINE PHOSPHATASE 56 U/L (40-129); ALT/SGPT 12 U/L (7.0-40); AST/SGOT < 8 U/L (<34); BILIRUBIN,TOTAL 0.3 MG/DL (0.3-1.2); BLOOD UREA NITROGEN 21 MG/DL (9-23); CALCIUM LEVEL 8.1 MG/DL (8.5-10.1); CARBON DIOXIDE LEVEL 24 MMOL/L (20-31); CHLORIDE LEVEL 110 MMOL/L (98-107); CREATININE FOR GFR 0.69 MG/DL (0.70-1.30); GLOMERULAR FILTRATION RATE > 90.0 (>56); GLUCOSE, FASTING 113 MG/DL (60-100); MAGNESIUM LEVEL 1.8 MG/DL (1.8-2.4); POTASSIUM SERUM 3.7 MMOL/L (3.5-5.1); SODIUM LEVEL 143 MMOL/L (136-145); TOTAL PROTEIN 5.2 G/DL (5.7-8.2)
[2024-07-17 12:00] VITALS: BP 88/44; TEMP 97.5; O2SAT 95
[2024-07-17 13:10] VITALS: BP 82/50
[2024-07-17] MEDS: MIDODRINE 2.5 MG TAB PO SCH (13:30)
[2024-07-17] MEDS: NS (Normal Saline) 0.9% 1,000 ML IV ONE (17:05)
[2024-07-17 20:59] VITALS: BP 88/60; TEMP 97.5; TEMP 98.1; O2SAT 97
[2024-07-18 05:19] LABS: ALBUMIN 2.2 G/DL (3.2-5.2); ALKALINE PHOSPHATASE 58 U/L (40-129); ALT/SGPT 25 U/L (7.0-40); AST/SGOT 18 U/L (<34); BILIRUBIN,TOTAL 0.3 MG/DL (0.3-1.2); BLOOD UREA NITROGEN 21 MG/DL (9-23); CALCIUM LEVEL 7.8 MG/DL (8.5-10.1); CARBON DIOXIDE LEVEL 25 MMOL/L (20-31); CHLORIDE LEVEL 108 MMOL/L (98-107); CREATININE FOR GFR 0.67 MG/DL (0.70-1.30); GLOMERULAR FILTRATION RATE > 90.0 (>56); GLUCOSE, FASTING 89 MG/DL (60-100); MAGNESIUM LEVEL 1.8 MG/DL (1.8-2.4); POTASSIUM SERUM 3.8 MMOL/L (3.5-5.1); SODIUM LEVEL 143 MMOL/L (136-145); TOTAL PROTEIN 5.3 G/DL (5.7-8.2)
[2024-07-18 05:24] VITALS: BP 92/57; TEMP 97.5; O2SAT 97
[2024-07-18 05:27] LABS: HEMATOCRIT 38.5 % (42.0-52.0); HEMOGLOBIN 11.9 g/dl (13.5-17.5); MEAN CORPUSCULAR HEMOGLOBIN 25.3 pg (27.0-33.0); MEAN CORPUSCULAR HGB CONC 30.9 g/dl (32.0-36.5); MEAN CORPUSCULAR VOLUME 81.9 fl (80.0-96.0); PLATELET COUNT, AUTOMATED 333 10^3/uL (150-450); WHITE BLOOD COUNT 11.6 10^3/uL (4.0-10.0)
[2024-07-18 06:47] LABS: ATYPICAL LYMPH 3 % (0-5); EOSINOPHILS 2 % (0-3); LYMPHOCYTES 25 % (16-44); MONOCYTES 3 % (0-5); NEUTROPHILS 67 % (28-66)
[2024-07-18 06:49] LABS: ANISOCYTOSIS 1+
[2024-07-18 06:50] LABS: OVALOCYTES 1+; PLATELET ESTIMATE NORMAL (NORMAL)
[2024-07-18] MEDS: predniSONE 10MG TAB PO SCH (08:22)
[2024-07-18] MEDS ORDERED: MIDO2.5T3 PO (10:57)
[2024-07-18] MEDS ORDERED: ATOR1TAB21 PO (10:57)
[2024-07-18] MEDS ORDERED: LINE1TAB6 PO (10:57)
[2024-07-18] MEDS ORDERED: CLOP75TA2 PO (10:57)
[2024-07-18] MEDS ORDERED: PRED10TA2 PO (10:57)
== END 2024-07-18 11:44 | DRG 64 ==
LOC: EDBD 08:42 → M ED 08:42 → EEVIPCON 12:49 → M ED INP 12:49 → M MSPAV 15:09
PROVIDERS: ADMIT Internal Medicine; ATTEND Internal Medicine
PROC: B246ZZZ Ultrasonography of Right and Left Heart (ICD-10-PCS; principal; 2024-07-15)
DX: I63.9 Cerebral infarction, unspecified (principal); G93.41 Metabolic encephalopathy; L03.115 Cellulitis of right lower limb; G80.9 Cerebral palsy, unspecified; G43.909 Migraine, unspecified, not intractable, without status migrainosus; I73.9 Peripheral vascular disease, unspecified; D64.9 Anemia, unspecified; I87.2 Venous insufficiency (chronic) (peripheral); L40.9 Psoriasis, unspecified; L82.1 Other seborrheic keratosis; B97.81 Human metapneumovirus as the cause of diseases classified elsewhere; G89.29 Other chronic pain; Z89.421 Acquired absence of other right toe(s); Z79.899 Other long term (current) drug therapy; Z88.0 Allergy status to penicillin; Z88.1 Allergy status to other antibiotic agents; Z88.8 Allergy status to other drugs, medicaments and biological substances; L27.0 Generalized skin eruption due to drugs and medicaments taken internally; T36.8X5A Adverse effect of other systemic antibiotics, initial encounter; T36.1X5A Adverse effect of cephalosporins and other beta-lactam antibiotics, initial encounter; Z93.1 Gastrostomy status

== ENCOUNTER 2025-01-25 04:36 | Inpatient (IN) | payer MEDICARE, MEDICAID ==
[2025-01-25] VITALS (8 sets, daily range): BP systolic 94–120; BP diastolic 50–60; TEMP 97.1–103; O2SAT 91–98
[~2025-01-25] VITALS: Ht 170.2 cm; Wt 73.0 kg
[~2025-01-25 04:36] MED LIST changes: +AMMO12CR4 TOP; +ATOR1TAB21 PO; +CLOP75TA2 PO; +FLUT15.820; +GUAI100L6 PO; +LINE1TAB6 PO; +MIDO2.5T3 PO; +MILKSUS3 PO; +NYST15OI4 TOP; +PRED10TA2 PO; +SANT250O8 TOP; +SENN1TAB85 PO
[2025-01-25] MEDS: NS (Normal Saline) 0.9% 1,000 ML IV ONE ×2 (05:13→14:07)
[2025-01-25 05:55] LABS: BASO # 0.1 10^3/uL (0.0-0.2); BASO % 0.5 % (0.0-1.0); EOS # 0.2 10^3/uL (0.0-0.5); EOS % 0.8 % (0.0-3.0); LYMPH # 0.7 10^3/uL (1.5-5.0); LYMPH % 3.4 % (24.0-44.0); MONO # 1.3 10^3/uL (0.0-0.8); MONO % 5.9 % (2.0-8.0); NEUTROPHILS # 18.9 10^3/uL (1.5-8.5); NEUTROPHILS % 88.3 % (36.0-66.0); PLATELET COUNT, AUTOMATED 320 10^3/uL (150-450)
[2025-01-25 05:56] LABS: C REACTIVE PROTEIN QUANTITATIV 6.51 MG/DL (<1.0)
[2025-01-25 06:08] LABS: ALT/SGPT 21.0 U/L (7.0-40); AST/SGOT 48.0 U/L (<34); CALCIUM LEVEL 8.8 MG/DL (8.5-10.1); CARBON DIOXIDE LEVEL 20.0 MMOL/L (20-31); CHLORIDE LEVEL 104.0 MMOL/L (98-107); CREATININE FOR GFR 1.04 MG/DL (0.70-1.30); GLOMERULAR FILTRATION RATE 83.8 (>56); POTASSIUM SERUM 3.8 MMOL/L (3.5-5.1); SODIUM LEVEL 138.0 MMOL/L (136-145)
[2025-01-25] MEDS: LevoFLOXacin IV 750 MG in IV 1 EA IV ONE (06:41)
[2025-01-25] MEDS: LINEZOLID 600 MG TABLET PO ONE (07:18)
[2025-01-25] MEDS: PANTOPRAZOLE 40MG VIAL IV ONE (07:18)
[2025-01-25] MEDS: NS (Normal Saline) 0.9% 1,000 ML IV STA (07:40)
[2025-01-25] MEDS ORDERED: IBUP200T46 PO (08:09)
[2025-01-25] MEDS ORDERED: ECOT81TA5 PO (08:09)
[2025-01-25] MEDS ORDERED: VIT B COMPLEX PO (08:09)
[2025-01-25] MEDS ORDERED: HOME MED LIST COMPLETE! XX SCH (08:10)
[2025-01-25 08:13] LABS: KETONE, URINE AUTO RFX NEGATIVE (NEGATIVE); LEUKOCYTE ESTERASE UR AUTO RFX NEGATIVE (NEGATIVE); MUCUS, URINE RFX SMALL (NEGATIVE); NITRITE, URINE AUTO RFX NEGATIVE (NEGATIVE); RBC, URINE AUTO RFX 0 /HPF (0-3); SQUAM EPITHELIAL CELL UR AURFX 0 /HPF (0-6); WBC, URINE AUTO RFX 1 /HPF (0-3)
[2025-01-25] MEDS ORDERED: MAALOX 30 ML SUSP *UDC PO PRN (08:45)
[2025-01-25] MEDS ORDERED: MOM 30 ML SUSPENSION UDC PO PRN (08:45)
[2025-01-25] MEDS ORDERED: cefTRIAXone SOD 2 GM in DEXTROSE 5% (D5W) ADV/MINI-BAG 50 ML IV SCH (09:00)
[2025-01-25] MEDS ORDERED: PANTOPRAZOLE 40MG VIAL IV SCH (09:00)
[2025-01-25] MEDS: ENOXAPARIN 40 MG/0.4 ML SYRINGE (J1650 PER 10MG) SC SCH (09:51)
[2025-01-25] MEDS: ASPIRIN 81 MG ENTERIC TABLET PO SCH (09:51)
[2025-01-25] MEDS: NS (Normal Saline) 0.9% 1,000 ML IV SCH (09:52)
[2025-01-25] MEDS: ACETAMINOPHEN 325 MG TAB PO PRN (14:08)
[2025-01-25] MEDS ORDERED: NS 500 ML IV ONE (18:20)
[2025-01-25] MEDS ORDERED: PILL CUTTER 1 EACH XX PRN (18:30)
[2025-01-25] MEDS: MIDODRINE 5 MG TAB PO SCH (18:34)
[2025-01-25] MEDS: LINEZOLID 600 MG TABLET PO SCH (21:19)
[2025-01-26] VITALS (8 sets, daily range): BP systolic 110–138; BP diastolic 56–78; TEMP 97–101.6; O2SAT 91–95
[2025-01-26] MEDS: LevoFLOXacin IV 750 MG in IV 1 EA IV SCH (05:45)
[2025-01-26 08:05] LABS: BASO # 0.1 10^3/uL (0.0-0.2); BASO % 0.8 % (0.0-1.0); EOS # 0.1 10^3/uL (0.0-0.5); EOS % 0.5 % (0.0-3.0); LYMPH # 1.1 10^3/uL (1.5-5.0); LYMPH % 9.8 % (24.0-44.0); MONO # 0.7 10^3/uL (0.0-0.8); MONO % 6.2 % (2.0-8.0); NEUTROPHILS # 9.4 10^3/uL (1.5-8.5); NEUTROPHILS % 82.3 % (36.0-66.0); PLATELET COUNT, AUTOMATED 196 10^3/uL (150-450)
[2025-01-26] MEDS: PANTOPRAZOLE 40MG TAB PO SCH (08:16)
[2025-01-26 08:50] LABS: ALT/SGPT 11.0 U/L (7.0-40); AST/SGOT 25.0 U/L (<34); CALCIUM LEVEL 7.8 MG/DL (8.5-10.1); CARBON DIOXIDE LEVEL 20.0 MMOL/L (20-31); CHLORIDE LEVEL 110.0 MMOL/L (98-107); CREATININE FOR GFR 1.13 MG/DL (0.70-1.30); GLOMERULAR FILTRATION RATE 75.8 (>56); MAGNESIUM LEVEL 1.6 MG/DL (1.8-2.4); POTASSIUM SERUM 3.2 MMOL/L (3.5-5.1); SODIUM LEVEL 141.0 MMOL/L (136-145)
[2025-01-26] MEDS: VANICREAM MOISTURIZING SKIN CREAM 113GM TUBE TOP SCH (12:10)
[2025-01-26] MEDS: TRIAMCINOLONE ACET 0.1% CREAM 80GM TOP SCH (12:11)
[2025-01-26] MEDS: NYSTATIN 100,000 UNITS/GM TOPICAL PWD 15 GM TOP SCH (17:00)
[2025-01-26] MEDS: MORPHINE 4 MG/ML 1 ML VIAL IV ONE (19:01)
[2025-01-26] MEDS: LINEZOLID 600 MG in IV 1 EA IV SCH (21:42)
[2025-01-27] VITALS (7 sets, daily range): BP systolic 108–140; BP diastolic 58–80; TEMP 97.8–99.8; O2SAT 90–96
[2025-01-27 05:48] LABS: BASO # 0.1 10^3/uL (0.0-0.2); BASO % 0.7 % (0.0-1.0); EOS # 0.4 10^3/uL (0.0-0.5); EOS % 3.2 % (0.0-3.0); LYMPH # 1.5 10^3/uL (1.5-5.0); LYMPH % 12.2 % (24.0-44.0); MONO # 0.9 10^3/uL (0.0-0.8); MONO % 6.8 % (2.0-8.0); NEUTROPHILS # 9.5 10^3/uL (1.5-8.5); NEUTROPHILS % 76.3 % (36.0-66.0); PLATELET COUNT, AUTOMATED 145 10^3/uL (150-450)
[2025-01-27 06:18] LABS: CALCIUM LEVEL 7.7 MG/DL (8.5-10.1); CARBON DIOXIDE LEVEL 21.0 MMOL/L (20-31); CHLORIDE LEVEL 107.0 MMOL/L (98-107); CREATININE FOR GFR 1.03 MG/DL (0.70-1.30); GLOMERULAR FILTRATION RATE 84.7 (>56); MAGNESIUM LEVEL 1.7 MG/DL (1.8-2.4); POTASSIUM SERUM 3.3 MMOL/L (3.5-5.1); SODIUM LEVEL 139.0 MMOL/L (136-145)
[2025-01-27] MEDS: MAG SULF 1GM/100ML (MAG RUN) 1 GM in IV 1 EA IV SCH (08:33)
[2025-01-27] MEDS: MAGNESIUM OXIDE 400 MG TAB PO SCH (08:35)
[2025-01-27] MEDS: POTASSIUM CHLORIDE 10MEQ SR TABLET PO ONE (10:05)
[2025-01-27] MEDS: KCL 10MEQ/100ML SWI (KRUN) 10 MEQ in IV 1 EA IV SCH ×2 (10:54→14:48)
[2025-01-27 13:52] LABS: CALCIUM LEVEL 7.6 MG/DL (8.5-10.1); CARBON DIOXIDE LEVEL 23.0 MMOL/L (20-31); CHLORIDE LEVEL 105.0 MMOL/L (98-107); CREATININE FOR GFR 0.98 MG/DL (0.70-1.30); GLOMERULAR FILTRATION RATE 89.9 (>56); MAGNESIUM LEVEL 2.1 MG/DL (1.8-2.4); POTASSIUM SERUM 3.3 MMOL/L (3.5-5.1); SODIUM LEVEL 139.0 MMOL/L (136-145)
[2025-01-27] MEDS: SENNOSIDES/DOCUSATE SODIUM 8.6 MG/50MG TAB PO SCH (14:48)
[2025-01-27] MEDS: BISACODYL 10 MG SUPP PR SCH (21:00)
[2025-01-28 04:17] VITALS: BP 104/80; TEMP 98.1; O2SAT 92
[2025-01-28 07:14] LABS: BASO # 0.1 10^3/uL (0.0-0.2); BASO % 0.9 % (0.0-1.0); EOS # 0.7 10^3/uL (0.0-0.5); EOS % 7.3 % (0.0-3.0); LYMPH # 1.7 10^3/uL (1.5-5.0); LYMPH % 17.1 % (24.0-44.0); MONO # 0.8 10^3/uL (0.0-0.8); MONO % 7.7 % (2.0-8.0); NEUTROPHILS # 6.6 10^3/uL (1.5-8.5); NEUTROPHILS % 66.2 % (36.0-66.0); PLATELET COUNT, AUTOMATED 179 10^3/uL (150-450)
[2025-01-28 07:40] LABS: CALCIUM LEVEL 7.8 MG/DL (8.5-10.1); CARBON DIOXIDE LEVEL 22.0 MMOL/L (20-31); CHLORIDE LEVEL 109.0 MMOL/L (98-107); CREATININE FOR GFR 1.0 MG/DL (0.70-1.30); GLOMERULAR FILTRATION RATE 87.8 (>56); MAGNESIUM LEVEL 2.0 MG/DL (1.8-2.4); POTASSIUM SERUM 3.9 MMOL/L (3.5-5.1); SODIUM LEVEL 142.0 MMOL/L (136-145)
[2025-01-28 08:33] VITALS: BP 110/66; TEMP 98.5; O2SAT 95
[2025-01-28 13:28] VITALS: BP 108/58; TEMP 98.8; O2SAT 97
[2025-01-28 19:42] VITALS: BP 120/65; TEMP 97.8; O2SAT 90
[2025-01-28 23:56] VITALS: BP 110/56
[2025-01-29 00:39] VITALS: TEMP 98.4; O2SAT 93
[2025-01-29 05:08] VITALS: BP 130/70; TEMP 97.5; O2SAT 93
[2025-01-29 05:30] LABS: BASO # 0.2 10^3/uL (0.0-0.2); BASO % 1.4 % (0.0-1.0); EOS # 0.9 10^3/uL (0.0-0.5); EOS % 8.5 % (0.0-3.0); LYMPH # 2.1 10^3/uL (1.5-5.0); LYMPH % 20.1 % (24.0-44.0); MONO # 0.9 10^3/uL (0.0-0.8); MONO % 8.3 % (2.0-8.0); NEUTROPHILS # 6.4 10^3/uL (1.5-8.5); NEUTROPHILS % 60.3 % (36.0-66.0); PLATELET COUNT, AUTOMATED 213 10^3/uL (150-450)
[2025-01-29 05:51] LABS: CALCIUM LEVEL 7.9 MG/DL (8.5-10.1); CARBON DIOXIDE LEVEL 23.0 MMOL/L (20-31); CHLORIDE LEVEL 107.0 MMOL/L (98-107); CREATININE FOR GFR 1.07 MG/DL (0.70-1.30); GLOMERULAR FILTRATION RATE 80.9 (>56); MAGNESIUM LEVEL 2.1 MG/DL (1.8-2.4); POTASSIUM SERUM 4.0 MMOL/L (3.5-5.1); SODIUM LEVEL 141.0 MMOL/L (136-145)
[2025-01-29 08:00] VITALS: BP 132/76; TEMP 97.1; O2SAT 95
[2025-01-29] MEDS: LINEZOLID 600 MG TABLET PO SCH (10:11)
[2025-01-29 12:21] VITALS: BP 122/62; TEMP 97.2; O2SAT 93
[2025-01-29 16:58] VITALS: BP 128/64; TEMP 98.2; O2SAT 96
[2025-01-29 17:30] LABS: C REACTIVE PROTEIN QUANTITATIV 5.97 MG/DL (<1.0)
[2025-01-29 19:48] VITALS: BP 118/62; TEMP 98.8; O2SAT 96
[2025-01-30 03:54] VITALS: BP 122/82; TEMP 97; O2SAT 95
[2025-01-30 05:36] LABS: BASO # 0.2 10^3/uL (0.0-0.2); BASO % 1.3 % (0.0-1.0); EOS # 0.8 10^3/uL (0.0-0.5); EOS % 7.1 % (0.0-3.0); LYMPH # 2.1 10^3/uL (1.5-5.0); LYMPH % 18.6 % (24.0-44.0); MONO # 1.1 10^3/uL (0.0-0.8); MONO % 9.5 % (2.0-8.0); NEUTROPHILS # 6.9 10^3/uL (1.5-8.5); NEUTROPHILS % 61.0 % (36.0-66.0); PLATELET COUNT, AUTOMATED 255 10^3/uL (150-450)
[2025-01-30 05:58] LABS: CALCIUM LEVEL 7.9 MG/DL (8.5-10.1); CARBON DIOXIDE LEVEL 22 MMOL/L (20-31); CHLORIDE LEVEL 106 MMOL/L (98-107); CREATININE FOR GFR 0.96 MG/DL (0.70-1.30); GLOMERULAR FILTRATION RATE > 90.0 (>56); MAGNESIUM LEVEL 2.2 MG/DL (1.8-2.4); POTASSIUM SERUM 4.2 MMOL/L (3.5-5.1); SODIUM LEVEL 140 MMOL/L (136-145)
[2025-01-30 07:27] VITALS: BP 119/70; TEMP 97.1; O2SAT 94
[2025-01-30 12:00] VITALS: BP 119/70; TEMP 98.3; O2SAT 97
[2025-01-30 16:00] VITALS: BP 123/78; TEMP 99.8; O2SAT 98
[2025-01-30 20:00] VITALS: BP 129/65; TEMP 98.3; O2SAT 98
[2025-01-31 04:00] VITALS: BP 124/79; TEMP 96.8; O2SAT 99
[2025-01-31 06:26] LABS: BASO # 0.2 10^3/uL (0.0-0.2); BASO % 1.5 % (0.0-1.0); EOS # 0.8 10^3/uL (0.0-0.5); EOS % 6.6 % (0.0-3.0); LYMPH # 2.0 10^3/uL (1.5-5.0); LYMPH % 16.4 % (24.0-44.0); MONO # 1.1 10^3/uL (0.0-0.8); MONO % 9.0 % (2.0-8.0); NEUTROPHILS # 7.7 10^3/uL (1.5-8.5); NEUTROPHILS % 62.2 % (36.0-66.0); PLATELET COUNT, AUTOMATED 289 10^3/uL (150-450)
[2025-01-31 07:03] LABS: CALCIUM LEVEL 7.8 MG/DL (8.5-10.1); CARBON DIOXIDE LEVEL 24.0 MMOL/L (20-31); CHLORIDE LEVEL 103.0 MMOL/L (98-107); CREATININE FOR GFR 1.05 MG/DL (0.70-1.30); GLOMERULAR FILTRATION RATE 82.8 (>56); MAGNESIUM LEVEL 2.3 MG/DL (1.8-2.4); POTASSIUM SERUM 4.1 MMOL/L (3.5-5.1); SODIUM LEVEL 138.0 MMOL/L (136-145)
[2025-01-31] MEDS ORDERED: LINE1TAB6 PO (08:21)
[2025-01-31] MEDS: FLUZONE VACCINE TRI PF(25-26) 0.5ML SYRINGE IM.IMMUN ONE (09:45)
[2025-01-31 12:00] VITALS: BP 131/72
== END 2025-01-31 14:08 | disposition home or self-care (01) | DRG 872 ==
LOC: M ED 04:36 → M ED INP 08:45 → EEVIPCON 08:45 → M PCU 10:52 → UNDODISIN 12:12 → M MS4PR 01-30 11:33
PROVIDERS: ADMIT Student in an Organized Health Care Education/Training Program; ATTEND Student in an Organized Health Care Education/Training Program
PROC: B246ZZZ Ultrasonography of Right and Left Heart (ICD-10-PCS; principal; 2025-01-26)
DX: A40.0 Sepsis due to streptococcus, group A (principal); L03.116 Cellulitis of left lower limb; G80.9 Cerebral palsy, unspecified; G89.29 Other chronic pain; I73.9 Peripheral vascular disease, unspecified; R65.20 Severe sepsis without septic shock; L89.229 Pressure ulcer of left hip, unspecified stage; G43.909 Migraine, unspecified, not intractable, without status migrainosus; L21.9 Seborrheic dermatitis, unspecified; E87.6 Hypokalemia; L40.9 Psoriasis, unspecified; D64.9 Anemia, unspecified; Z89.421 Acquired absence of other right toe(s); K59.09 Other constipation; Z79.82 Long term (current) use of aspirin; Z88.1 Allergy status to other antibiotic agents; Z88.0 Allergy status to penicillin; Z88.8 Allergy status to other drugs, medicaments and biological substances; Z99.3 Dependence on wheelchair

== ENCOUNTER 2025-02-26 14:39 | Inpatient (IN) | payer MEDICARE, MEDICAID ==
[~2025-02-26] VITALS: Ht 170.2 cm; Wt 75.0 kg
[~2025-02-26 14:39] MED LIST changes: +ECOT81TA5 PO; +IBUP200T46 PO; +VIT B COMPLEX PO
[2025-02-26 15:48] LABS: BASO # 0.1 10^3/uL (0.0-0.2); BASO % 0.5 % (0.0-1.0); EOS # 0.1 10^3/uL (0.0-0.5); EOS % 0.6 % (0.0-3.0); LYMPH # 0.5 10^3/uL (1.5-5.0); LYMPH % 3.0 % (24.0-44.0); MONO # 0.2 10^3/uL (0.0-0.8); MONO % 1.4 % (2.0-8.0); NEUTROPHILS # 16.0 10^3/uL (1.5-8.5); NEUTROPHILS % 94.1 % (36.0-66.0); PLATELET COUNT, AUTOMATED 305 10^3/uL (150-450)
[2025-02-26 16:29] LABS: ALT/SGPT 16.0 U/L (7.0-40); AST/SGOT 21.0 U/L (<34); CALCIUM LEVEL 9.2 MG/DL (8.5-10.1); CARBON DIOXIDE LEVEL 25.0 MMOL/L (20-31); CHLORIDE LEVEL 103.0 MMOL/L (98-107); CREATININE FOR GFR 0.99 MG/DL (0.70-1.30); GLOMERULAR FILTRATION RATE 88.9 (>56); POTASSIUM SERUM 3.5 MMOL/L (3.5-5.1); SODIUM LEVEL 139.0 MMOL/L (136-145)
[2025-02-26] MEDS: [UNRECOGNIZED DRUG - OTHER] IV ONE (17:17)
[2025-02-26] MEDS: ACETAMINOPHEN *IV* 1,000 MG in IV 1 EA IV ONE (17:17)
[2025-02-26] MEDS: NS 0.9% IV ONE (17:17)
[2025-02-26 17:41] LABS: KETONE, URINE AUTO RFX NEGATIVE (NEGATIVE); LEUKOCYTE ESTERASE UR AUTO RFX NEGATIVE (NEGATIVE); MUCUS, URINE RFX SMALL (NEGATIVE); NITRITE, URINE AUTO RFX NEGATIVE (NEGATIVE); RBC, URINE AUTO RFX 0 /HPF (0-3); SQUAM EPITHELIAL CELL UR AURFX 0 /HPF (0-6); WBC, URINE AUTO RFX 0 /HPF (0-3)
[2025-02-26 17:53] LABS: C REACTIVE PROTEIN QUANTITATIV 3.04 MG/DL (<1.0)
[2025-02-26] MEDS ORDERED: HOME MED LIST COMPLETE! XX SCH (17:55)
[2025-02-26] MEDS: NS (Normal Saline) 0.9% 1,000 ML IV ONE ×2 (21:02→21:03)
[2025-02-26] MEDS: LINEZOLID 600 MG in IV 1 EA IV ONE (21:03)
[2025-02-26] MEDS: POTASSIUM CHLORIDE 10MEQ SR TABLET PO ONE (21:35)
[2025-02-26] MEDS: ACETAMINOPHEN 500 MG TAB PO PRN (22:41)
[2025-02-27] MEDS: NS (Normal Saline) 0.9% 1,000 ML IV SCH (01:49)
[2025-02-27] MEDS ORDERED: KETOROLAC 30 MG/ML 1 ML VIAL IV ONE (03:30)
[2025-02-27] MEDS: traMADol 50 MG TAB PO ONE (03:59)
[2025-02-27] MEDS: ENOXAPARIN 40 MG/0.4 ML SYRINGE (J1650 PER 10MG) SC SCH (10:08)
[2025-02-27] MEDS: ASPIRIN 81 MG ENTERIC TABLET PO SCH (10:08)
[2025-02-27 10:30] VITALS: BP 110/57; TEMP 99.4; O2SAT 98
[2025-02-27] MEDS: LINEZOLID 600 MG TABLET PO SCH ×2 (11:18→21:12)
[2025-02-27 12:28] LABS: CPK CREATINE PHOSPHOKINASE 111.0 U/L (46-171)
[2025-02-27 12:30] LABS: CALCIUM LEVEL 8.2 MG/DL (8.5-10.1); CARBON DIOXIDE LEVEL 23.0 MMOL/L (20-31); CHLORIDE LEVEL 106.0 MMOL/L (98-107); CREATININE FOR GFR 1.08 MG/DL (0.70-1.30); GLOMERULAR FILTRATION RATE 80.0 (>56); POTASSIUM SERUM 3.3 MMOL/L (3.5-5.1); SODIUM LEVEL 139.0 MMOL/L (136-145)
[2025-02-27 12:38] LABS: PLATELET COUNT, AUTOMATED 178 10^3/uL (150-450)
[2025-02-27] MEDS ORDERED: MORPHINE 2 MG/ML 1 ML VIAL IV PRN (12:55)
[2025-02-27 14:00] VITALS: BP 122/61; TEMP 99.5; O2SAT 92
[2025-02-27] MEDS: POTASSIUM CHLORIDE 10MEQ SR TABLET PO ONE (15:05)
[2025-02-27] MEDS: DAPTOmycin 750 MG in NS 50 ML IV SCH (15:05)
[2025-02-27] MEDS: LACTIC ACID 12% LOTION 225 GM BTL EXT SCH (19:07)
[2025-02-27 20:10] VITALS: BP 103/53; TEMP 98.7; O2SAT 94
[2025-02-28 03:43] VITALS: BP 125/60; TEMP 97.9; O2SAT 95
[2025-02-28 06:39] LABS: BASO # 0.1 10^3/uL (0.0-0.2); BASO % 0.8 % (0.0-1.0); EOS # 0.2 10^3/uL (0.0-0.5); EOS % 2.0 % (0.0-3.0); LYMPH # 1.5 10^3/uL (1.5-5.0); LYMPH % 15.4 % (24.0-44.0); MONO # 0.7 10^3/uL (0.0-0.8); MONO % 7.4 % (2.0-8.0); NEUTROPHILS # 7.2 10^3/uL (1.5-8.5); NEUTROPHILS % 73.9 % (36.0-66.0); PLATELET COUNT, AUTOMATED 133 10^3/uL (150-450)
[2025-02-28 07:00] LABS: CALCIUM LEVEL 8.2 MG/DL (8.5-10.1); CARBON DIOXIDE LEVEL 21.0 MMOL/L (20-31); CHLORIDE LEVEL 106.0 MMOL/L (98-107); CREATININE FOR GFR 1.04 MG/DL (0.70-1.30); GLOMERULAR FILTRATION RATE 83.8 (>56); POTASSIUM SERUM 3.5 MMOL/L (3.5-5.1); SODIUM LEVEL 137.0 MMOL/L (136-145)
[2025-02-28] MEDS: POTASSIUM CHLORIDE 10MEQ SR TABLET PO ONE (10:56)
[2025-02-28 14:00] VITALS: BP 119/67; TEMP 97.3; O2SAT 95
[2025-02-28] MEDS ORDERED: CLIN75REC PO (16:12)
[2025-02-28 21:20] VITALS: BP 128/59; TEMP 98.9; O2SAT 95
[2025-03-01 05:56] VITALS: BP 108/56; TEMP 98.6; O2SAT 95
[2025-03-01 07:24] LABS: PLATELET COUNT, AUTOMATED 136 10^3/uL (150-450)
[2025-03-01 07:46] LABS: CALCIUM LEVEL 7.8 MG/DL (8.5-10.1); CARBON DIOXIDE LEVEL 24.0 MMOL/L (20-31); CHLORIDE LEVEL 104.0 MMOL/L (98-107); CREATININE FOR GFR 1.06 MG/DL (0.70-1.30); GLOMERULAR FILTRATION RATE 81.9 (>56); POTASSIUM SERUM 3.7 MMOL/L (3.5-5.1); SODIUM LEVEL 137.0 MMOL/L (136-145)
[2025-03-01 14:00] VITALS: TEMP 98.6; O2SAT 97
[2025-03-01 20:49] VITALS: BP 115/65; TEMP 97.9; O2SAT 99
[2025-03-02 06:20] VITALS: BP 110/60; TEMP 98.3; O2SAT 96
[2025-03-02 07:46] LABS: PLATELET COUNT, AUTOMATED 180 10^3/uL (150-450)
[2025-03-02 08:07] LABS: CALCIUM LEVEL 7.9 MG/DL (8.5-10.1); CARBON DIOXIDE LEVEL 24 MMOL/L (20-31); CHLORIDE LEVEL 105 MMOL/L (98-107); CREATININE FOR GFR 0.92 MG/DL (0.70-1.30); GLOMERULAR FILTRATION RATE > 90.0 (>56); POTASSIUM SERUM 3.8 MMOL/L (3.5-5.1); SODIUM LEVEL 138 MMOL/L (136-145)
== END 2025-03-02 14:40 | disposition home health service (06) | DRG 872 ==
LOC: M ED 14:39 → M ED INP 20:06 → M MS5PR 02-27 10:42
PROVIDERS: ADMIT Student in an Organized Health Care Education/Training Program; ATTEND Student in an Organized Health Care Education/Training Program
DX: A40.9 Streptococcal sepsis, unspecified (principal); L03.115 Cellulitis of right lower limb; L03.116 Cellulitis of left lower limb; G80.1 Spastic diplegic cerebral palsy; E87.20 Acidosis, unspecified; I73.9 Peripheral vascular disease, unspecified; G43.909 Migraine, unspecified, not intractable, without status migrainosus; L89.159 Pressure ulcer of sacral region, unspecified stage; D64.9 Anemia, unspecified; L40.9 Psoriasis, unspecified; L82.1 Other seborrheic keratosis; I87.2 Venous insufficiency (chronic) (peripheral); R65.20 Severe sepsis without septic shock; K59.09 Other constipation; Z79.82 Long term (current) use of aspirin; Z88.0 Allergy status to penicillin; Z88.1 Allergy status to other antibiotic agents; Z88.6 Allergy status to analgesic agent; Z88.8 Allergy status to other drugs, medicaments and biological substances; Z99.3 Dependence on wheelchair